=== PATIENT | male | born 1935 | race Hispanic/Latino ===

== ENCOUNTER 2016-06-15 10:06 | Day surgery (SDC) | payer SELFPAY ==
--- NOTE | 2016-06-13 12:13 | PCM.ANEPRE ---
Anesthesia Pre-Op Review Reason for Review: cardio hx, internal carotid stenosis, recent CP with BMS Anesthesia Recommendations: Proceed with Procedure Additional Comments 81 y/o male with bladder cancer scheduled for cysto, bladder biopsy. Patient has a h/o CAD s/p NSTEMI on 06/2015. Subsequently underwent BMS to RCA on . Saw home improvement contractor Dr. Mclain on 06/11/16 who cleared him for surgery, but recommended that he see a vascular surgeon to evaluation his left carotid stenosis. On 09/01/15 he had a carotid US which showed 70% stenosis to near occlusion of L internal carotid artery. I showed the results of the carotid US to Dr. Karen Ramirez who reported that he couldn't be sure until seeing the patient, but it was unlikely that he would recommend a carotid endarterectomy for the patient based on the US. The patient underwent GA for a cysto/TURBT on 09/02/15 (after his prior carotid US) without any apparent issues. The patient's Echo on 02/16 showed EF of 65-70%. Proceed with surgery as planned pending evaluation by DOS anesthesiologist. Chart Reviewed by: Audie Griffiths MD Jun 13, 2016 12:13
[~2016-06-15] VITALS: Ht 167.6 cm; Wt 81.8 kg
--- NOTE | 2016-06-15 08:34 | PCM.HPANE ---
Patient Data Surgeon Admitting Provider: Attending Provider:Lilliam Toscano MD Primary Care Physician:Traci Samuel PA-C Other Provider:Daija Perez Anesthesia Reason for Visit History Of Bladder Cancer Ht/WT & BMI Height (Feet): 5 Height (Inches): 6 Weight (Kilograms): 82.55 Body Mass Index 29.00 Allergies Coded Allergies: No Known Allergies (Verified Allergy, Unknown, 02/22/16) Past Anesthesia History Anesthesia History: Denies:: Abnormal Airway, Anesthesia Reactions, Difficult Intubation, Malignant Hyperthermia Diabetes History Hx Diabetes?: Yes (T2 DM) Type of Diabetes: Type II Glycemic Control: Oral Medication MRSA MRSA: No Medications Blood Thinner: Aspirin Hypertension Medication: Yes Home Meds Incl Beta [place]ilah: No Active Scripts Atorvastatin Calcium 10 Mg Getnth89 Mg PO HS #30 TABLET Ref 5 Prov:EMILIE DAVILA DO 03/12/16 Aspirin Chew 81 Mg Chew81 Mg PO DAILY 90 Days Prov:Ravinder Hernandez 03/07/16 Reported Medications Tramadol 50 Mg Jpctuf66 Mg PO Q4H PRN For Pain Ref 0 06/12/16 Metoprolol Tartrate 25 Mg Uqrgih52 Mg PO BID 30 Days Ref 0 06/12/16 Isosorbide MN ER 60 Mg Tab.er.24h60 Mg PO DAILY 06/12/16 Amlodipine 2.5 Mg Tablet2.5 Mg PO BID Ref 0 06/12/16 Phenazopyridine (Azo Urinary Pain Relief)97.5 Mg Tablet2 Each PO TID PRN urinary burning 02/22/16 Dextran 70/Hypromellose/Pf (Artificial Tears Drops)1 Each Droperette1 Drop BOTH_ EYES BID PRN For Eye Irritation 02/22/16 Metformin 500 Mg Nnxhcu676 Mg PO DAILY 02/22/16 Nitroglycerin SL (Nitrostat)0.4 Mg Tab.subl0.4 Mg SL Q5MIN PRN For Chest Pain 08/31/15 Discontinued Reported Medications diphenhydrAMINE HCl (Benadryl)25 Mg Fxsktiz95 Mg PO Q4 PRN For Itching 02/22/16 Metoprolol Tartrate 25 Mg Bjwpch59 Mg PO BID 02/22/16 Discontinued Scripts Oxycodone (Roxicodone)5 Mg Tablet5 Mg PO Q4H PRN For Pain #30 TABLET Ref 0 Prov:EMILIE DAVILA DO 03/12/16 Isosorbide MN ER 60 Mg Tab.er.96s973 Mg PO 0730 #60 Ref 4 Prov:DEBBI DAVILABrenda Moreno DO 03/12/16 Amlodipine 5 Mg Tablet5 Mg PO BID #60 TABLET Prov:MaryRavinder 03/07/16 Clopidogrel 75 Mg Oixkhu13 Mg PO DAILY #30 TABLET Prov:Ravinder Hernandez 03/07/[address] (Protonix)40 Mg Iecvzj10 Mg PO DAILY 30 Days Prov:KassiejocelynRavinder 03/07/16 History History of ENT Problems?: Yes HEENT History: Positive for:: Cataracts Dysphagia Sinus Problem (seasonal allergies) Denies:: Abnormal Airway Difficult Intubation Hx of Heart Problems?: Yes Cardiovascular History: Positive for:: Chest Pain (PCI 02/2016) Hypertension Valvular Heart Disease (echo 02/2016) Denies:: Cardiac Surgery (BMS to RCA- 2015) Congestive Heart Failure Heart Murmur Irregular Heartbeat Hx of Respiratory Problem?: Yes Respiratory History: Positive for:: Dyspnea Pneumonia ( admitted for 06/2015) Denies:: COPD Oxygen Administration Tuberculosis Use of C-PAP Machine Use of Inhalers / NEBS Hx Neurologic Problems?: Yes Neurological History: Positive for:: CVA Denies:: Alzheimer's Disease Headaches Multiple Sclerosis Parkinson's Disease Seizures Hx of GI Problems?: Yes Gastrointestinal History: Positive for:: Gastrointestinal Bleeding (hx of 2015) Heartburn Rectal Bleeding (hemorrhoids) Denies:: Diverticulitis Hx of Problems?: Yes Genitourinary History: Positive for:: Kidney Stones Urinary Tract Infection (E Coli UTI 10/2015) Other Pertinent History: bladder tumor current admission problem Male Hx: Positive for:: Prostate Problems (TURP x 2) Denies:: Scrotal Mass Testicular Surgery Skin History: Positive for:: History Skin Disorders? (pruritis) Denies:: Pressure Ulcers Hx Musculoskeletal Problems?: Yes Musculoskeletal History: Positive for:: Back Injury (chronic back pain) Hx of Psycho/Social Problems?: No Psycho Social History: Denies:: Anxiety Hx Depression Hx Surgeries?: Yes (appy, TURPx2, r.eyeball enucleation, kira) Hx Any Other Health Problems?: Yes Other History: Positive for:: Cancer (bladder ca) Hospitalization (06/2015 PNEUMONIA) Denies:: Endocrine Disease Thyroid Disease History Blood Transfusions: Denies:: Blood Transfuse Reaction Blood Transfusions Hx Diabetes: Yes (T2 DM) Hx Alcohol Use: Yes (Drinks 1 beer per month)Hx Substance Use: No Smoking Status: Former Smoker Have You Smoked inLast 12 mo: No Stop/Bang S-Snoring: Do You Snore Loudly: Yes T-Tired: feel tired, fatigued: No O-Obsered: Observed not breath: No P-Blood Pressure: treated: Yes B- Body Mass Index > 35 kg/m2: No A- Age over 50: Yes N- Neck Large Circumference: No G- Gender Male: Yes NIA Total Score: 4 NIA Risk Assessment: High Risk, =/>3 Yes NIA Category 4 OutPt Procedure: Yes Risk Assessment Category Category 1A: Patient has history of documented sleep apnea, and HAS NOT received any narcotic, sedative or anesthesia administration during this stay. Category 1B: Patient has history of documented sleep apnea, and HAS received any narcotic , sedative or anesthesia administration during this stay Category 2: Patient has SUSPECTED Obstructive Sleep Apnea, and HAS received any narcotic , sedative or anesthesia administration during this stay. Category 3: Patient has SUSPECTED Obstructive Sleep Apnea and HAS NOT received narcotic, sedative or anesthesia administration during this stay. Category 4: Outpatient in Procedural Areas with known sleep apnea or who screen positive for High Risk via the STOP/BANG questionnaire. Exam Exam General Appearance: Alert, Oriented X3, Cooperative, No Acute Distress HEENT/AIRWAY: MP 2 Lungs: Clear to Auscultation, Normal Air Movement Heart: Exam Unremarkable, Regular Rate/Rhythm, No Murmurs/Rubs/Gallops Plan Impression Patient chart reviewed, patient interviewed and anesthestic plan with risks, benefits, and alternatives discussed, and informed consent obtained. NPO Status: 02/23/16 ASA Physical Status: ASA3 Severe Disease (hx carotid stenosis-pt has not seen vascular surgeon, but wishes to proceed with understanding there is a slight increased of perioperative stroke) Anesthetic Plan: GA Bene/Risks/Altern/Consents: Yes (Discussion with patient and family present about increased risks of stroke and cardiac complications with specific reference to his NSQUIP calculation sheet. Patient consents and all questions answered. ) HP Complete Prior to Induction: Yes Earl Sevilla MD Jun 15, 2016 08:34
[~2016-06-15 10:06] MED LIST: AMLO2.5T PO; ASPI81TA3 PO; ATOR10TA66 PO; DEXT1DRO8 BOTH_EYES; ISOS60TA2 PO; Lactated Ringer's 1,000 ML IV SCH; Levofloxacin 500 mg/100 mL D5W IV ONE; METF500T4 PO; METO25TA6 PO; NITR0.4T SL; PHEN97.511 PO; TRAM50TA2 PO
[2016-06-15] MEDS ORDERED: Ondansetron 2 mg/mL 2 mL Inj ONE (10:07)
[2016-06-15] MEDS ORDERED: fentaNYL-PF 50 mCg/mL 2 mL Inj ONE (10:07)
[2016-06-15] MEDS ORDERED: Ketamine 10 mg/mL 20 mL Inj ONE (10:07)
[2016-06-15] MEDS ORDERED: Propofol 10,000 mCg/mL 20 mL Inj ONE (10:07)
[2016-06-15] MEDS: Lactated Ringer's 1,000 ML IV SCH ×2 (10:50→12:14)
[2016-06-15 10:51] VITALS: BP 140/72; PULSE 51; RESP 14; O2SAT 98
[2016-06-15] MEDS ORDERED: Phenylephrine 10,000 mCg/mL Inj IVPUSH PRN (12:30)
[2016-06-15] MEDS ORDERED: Lactated Ringer's 500 ML IV PRN (12:30)
[2016-06-15] MEDS ORDERED: Lactated Ringer's 1,000 ML IV SCH (12:30)
[2016-06-15] MEDS ORDERED: MetoCLOpramide 5 mg/mL 2 mL Inj IVPUSH PRN (12:30)
[2016-06-15] MEDS ORDERED: Dexamethasone 4 mg/mL Inj IVPUSH PRN (12:30)
[2016-06-15] MEDS ORDERED: EPHEDrine Sulfate 50 mg/mL Inj IVPUSH PRN (12:30)
[2016-06-15] MEDS ORDERED: Ondansetron 2 mg/mL 2 mL Inj IVPUSH PRN (12:30)
[2016-06-15] MEDS ORDERED: HYDROmorphone 1 mg/mL Inj IVPUSH PRN (12:30)
[2016-06-15] MEDS ORDERED: Belladonna Alk-Opium 60 mg Rectal Suppository RECTAL ONE (12:46)
[2016-06-15] MEDS ORDERED: Lidocaine 2% 5 mL Urojet Topical Jelly Syringe MUC_MEMBRM ONE (13:09)
[2016-06-15 13:15] VITALS: BP 126/64; PULSE 55; RESP 22; O2SAT 96
[2016-06-15] MEDS ORDERED: HYDROcodone-APAP 5-325 mg Tablet PO PRN (13:20)
[2016-06-15] MEDS ORDERED: Phenazopyridine 97.5 mg Tablet PO PRN (13:20)
[2016-06-15] MEDS ORDERED: Ondansetron 8 mg ODT Tablet PO PRN (13:20)
[2016-06-15] MEDS: fentaNYL-PF 50 mCg/mL 2 mL Inj IVPUSH PRN ×2 (13:25→13:44)
[2016-06-15 13:40] VITALS: BP 120/60; PULSE 51; RESP 14; O2SAT 97
[2016-06-15 13:45] VITALS: BP 123/53; PULSE 50; RESP 15; O2SAT 95
[2016-06-15 13:56] VITALS: BP 119/56; PULSE 52; RESP 16; O2SAT 96
--- NOTE | 2016-06-15 14:39 | PCM.ANEP2 ---
Post Anesthesia Evaluation ASA/CMS Post Anesthesia VS in Patient's Normal Range?: Yes Resp Stable; Airway Patent?: Yes CV Function & Hydration Stable: Yes Mental Status Recovered?: Yes Pain control Satisfactory?: Yes N/V Control Satisfactory?: Yes Earl Sevilla MD Jun 15, 2016 14:39
--- NOTE | 2016-06-15 14:39 | PCM.ANEP1 ---
Post Anesthesia Phase 1 PACU Phase 1 Assessment Vital Signs Vital Signs Date Time Temp Pulse Resp B/P Pulse Ox O2 Delivery O2 Flow Rate FiO2 06/15/16 13:56 36.6 52 16 119/56 96 Room Air 06/15/16 13:45 50 15 123/53 95 Nasal Cannula 2 06/15/16 13:40 51 14 120/60 97 Nasal Cannula 2 06/15/16 13:15 36.7 55 22 126/64 96 Simple Mask 8 06/15/16 10:51 36.1 51 14 140/72 98 Room Air Anesthetic Administered: GA Level of Alertness: Awake, talking HULL's with Equal Strength: Yes Pain: No Nausea or Vomiting: No Oxygen Delivery: Simple Mask Lungs: Clear to Auscultation, Normal Air Movement Dermatome Level: Full Sensation Earl Sevilla MD Jun 15, 2016 14:38
--- NOTE | 2016-06-16 06:22 | OP ---
[address] [address] OPERATIVE REPORT PATIENT: RANDY DRISCOLL : 1935 MR#: [id number] ADMIT: 06/15/2016 JOB ID: [id number] DATE OF SURGERY: 06/15/2016 PROCEDURE NAME: Transurethral fulguration of large area of bladder erythema and bladder biopsy; area treated much greater than 5 cm. SURGEON: Lilliam Toscano MD. ANESTHESIA: General. PREOPERATIVE DIAGNOSIS(ES): 1. History of bladder carcinoma in situ. 2. Multiple medical comorbidities precluding any entertaining of a cystectomy; managed with periodic bladder fulgurations, and biopsy thus far once again with progressive bladder erythema and suspected tumor recurrence; brought for bladder biopsy and fulguration. 3. The patient is anticoagulated, on anti-platelet therapy, to decrease stroke risk. POSTOPERATIVE DIAGNOSIS(ES): Same PROCEDURE IN DETAIL: After appropriate informed consent was obtained, the patient was brought to the operating room. He received IV antibiotics prior to onset of the procedure. SCDs were placed. Adequate general anesthesia was induced. He was carefully placed in dorsal lithotomy position. All pressure points carefully padded. Cleaned, prepped, and draped in the usual sterile fashion. Rigid scope was introduced into the patient's bladder, which was inspected and found to be once again, as before, heavily trabeculated. At least half of the bladder was involved with a fairly heavy erythema. The ureteral orifices were identified. At the right ureteral orifice we passed a wire up it to ensure this was indeed the UO in order to protect it with fulguration. We used then the cold cup to take several large good biopsies of suspicious areas. There was a moderate amount of bleeding, and this was difficult control with the Bugbee with the patient's anticoagulated state. Thus, we went ahead and changed over to the resectoscope set. Using a visual obturator, introduced this into the patient's meatus after dilation of the meatus. We then able to irrigate out the clot and used the rollerball to control the hematuria. We then went ahead and cauterized extensively taking great care to preserve both the left and, in particular, the right ureteral orifice. All the areas of more heavily erythematous mucosa we were able to reach. There were some trabeculated areas of the bladder that appeared to have some very low papillary changes to this. This was all cauterized to the best of our ability as well. At the termination of the procedure, we had treated an area greater than 5 cm, preserving the ureteral orifices, and hemostasis was excellent with the water off. We then withdrew the scope, gave the patient a B and O suppository, injected some lidocaine into the patient's bladder. He was awakened, taken in stable condition to the postanesthesia care unit. EDUARD
--- NOTE | 2016-06-18 12:23 | PATH ---
SURGICAL PATHOLOGY Attending Physician:Lilliam Toscano MD CASE STATUS: Signed Out PATIENT NAME: RANDY DRISCOLL PID: [id number] : 1935 DATE COLLECTED:06/15/2016 20:14 SPECIMEN: Bladder, Biopsy CLINICAL HISTORY: ERYTHEMATOUS BLADDER MUCOSA 1). BLADDER ERYTHEMA FINAL DIAGNOSIS: 1.URINARY BLADDER BIOPSY: FOCUS OF PAPILLARY UROTHELIAL CARCINOMA, HIGH GRADE, WITH ASSOCIATED CHRONIC INFLAMMATION AND ERYTHEMA. Negative for evidence of invasion of lamina propria. Muscularis propria present, but negative for tumor. Negative for evidence of associated flat urothelial carcinoma in situ. ICD10 code C67.9 NOTE: As part of a routine quality lead, Dr. Killian Black has also reviewed this case and agrees with the diagnosis. GROSS DESCRIPTION: The specimen is received in one formalin filled container labeled with the patient's name, sublabeled "bladder erythema" and consists of the specimen consists of 3 portions of tissue which aggregate to 0.6 x 0.6 x 0.4 CM. The specimen is entirely submitted in one cassette. 06/15/2016 [facility] MICRO DESCRIPTION: See diagnosis. ICD-9 CODES: CPT CODES: 1: 37685 Electronically Signed Out Bobby Malave MD [facility] Pathology [facility] [address], [place] [address] Technical component performed at [facility], [facility] [address], [place], [address]
== END 2016-06-15 23:59 | disposition home or self-care (01) ==
LOC: SAS 10:06
PROVIDERS: ATTEND Urology
DX: C67.9 Malignant neoplasm of bladder, unspecified (principal); E11.9 Type 2 diabetes mellitus without complications; I10 Essential (primary) hypertension; R12 Heartburn; R13.10 Dysphagia, unspecified; Z79.82 Long term (current) use of aspirin; Z79.899 Other long term (current) drug therapy; Z87.891 Personal history of nicotine dependence
CPT/HCPCS: 52240; J2405; J7120

== ENCOUNTER 2017-01-19 07:38 | Observation (INO) | payer MEDICAID ==
[~2017-01-19] VITALS: Ht 157.5 cm; Wt 83.7 kg
[2017-01-19] VITALS (11 sets, daily range): BP systolic 103–164; BP diastolic 47–82; PULSE 45–75; RESP 16–22; O2SAT 93–99
[~2017-01-19 07:38] MED LIST changes: -Lactated Ringer's 1,000 ML IV SCH; -Levofloxacin 500 mg/100 mL D5W IV ONE
[2017-01-19 08:51] LABS: BASOPHILS % (AUTO) 0.1 % (0-3); EOSINOPHILS % (AUTO) 6.2 % (0-5); Mean Corpuscular Hemoglobin 29.2 pg (27.0-35.0); Mean Corpuscular Volume 87.6 fL (81-100); NEUTROPHILS % (AUTO) 68.3 % (40-74); Platelet Count 250 bil/L (150-400)
[2017-01-19 09:17] LABS: TROPONIN T 0.018 ug/L (0.0-0.011)
--- NOTE | 2017-01-19 09:18 | ED.REPORT ---
HPI-Chest Pain 40 and Over Date of Service Jan 19, 2017 ED Provider: Jj Medellin MD Pt is a 81 year old male with a history of CT, HTN, chronic back pain, recurrent , high grade transitional cell bladder cancer, valvular heart disease, and stents, who presents to the ED complaining of right-sided back pain onset 04:00 this morning, located behind his shoulder blade. The pain woke the pt from sleep and has been gradually worsening since. He now rates the pain at a 9/10 but has not taken any medications to treat it. The pt complains of associated chest pain and nausea. Pt denies SOB, vomiting, fever, coughing, diaphoresis, or fever. The pain is not relieved or exacerbated by anything. Pt also denies recent injuries, trauma, or falls. The pt has experienced similar symptoms before but was not given a definitive diagnosis at that time. He also had a cardiac event five years ago, but does not remember the details. Nursing Notes Stated Complaint: CHEST PAIN/PAIN RT SHOULDER Chief Complaint: Back Pain or Injury Nursing Notes Reviewed: Yes (Gentis not reconciled) Allergies: Coded Allergies: No Known Allergies (Verified Allergy, Unknown, 01/19/17) Scheduled Amlodipine (Amlodipine) 2.5 Mg Tablet 2.5 MG PO BID Aspirin Chew (Aspirin Chew) 81 Mg Chew 81 MG PO DAILY Atorvastatin Calcium (Atorvastatin Calcium) 10 Mg Tablet 10 MG PO HS Clopidogrel (Clopidogrel) 75 Mg Tablet 75 MG PO DAILY Isosorbide MN ER (Isosorbide MN ER) 60 Mg Tab.er.24h 60 MG PO DAILY Metformin (Metformin) 500 Mg Tablet 500 MG PO DAILY Metoprolol Tartrate (Metoprolol Tartrate) 25 Mg Tablet 25 MG PO BID Scheduled PRN Dextran 70/Hypromellose/Pf (Artificial Tears Drops) 1 Each Droperette 1 DROP BOTH_EYES BID PRN PRN For Eye Irritation Nitroglycerin SL (Nitrostat) 0.4 Mg Tab.subl 0.4 MG SL Q5MIN PRN PRN For Chest Pain Phenazopyridine (Azo Urinary Pain Relief) 97.5 Mg Tablet 2 EACH PO TID PRN PRN urinary burning Tramadol (Tramadol) 50 Mg Tablet 50 MG PO Q4H PRN PRN For Pain General Time Seen by MD: 09:06 Chief Complaint Back pain Hx Obtained From: Patient, Skin Piler Arrived By: Walk-in Sudden in Onset?: Yes Onset Occurred: 5 - 8 hours ago Symptom Duration: Since onset Recent Healthcare: No recent doctor visit, No recent hospitalization Similar Sx Previous: Yes Risk Factors )( CAD Risk Stratification Diabetes mellitus Hyperlipidemia Hypertension Known CAD Risk factors reviewed )( TAD Risk Stratification HypertensionNo Risk factors reviewed )( PE Risk Stratification No , No Risk factors reviewed Past Medical History Past Medical History Notes: Urologist Dr. Toscano Past Medical History h/o E Coli ESBL UTI 10/2015 h/o Anemia secondary to upper GI bleed with gastric antral ulcer June 2015, attributed to NSAIDS CAD w/N STEMI in June 2015, h/o cardiac stents History of aortic valve insufficiency Diabetes Type II CVA Chronic kidney disease, Stage II Hypertension Bladder CA (recurrent, high grade transitional cell) -> chemoradiation planned Pruritus Chronic Back Pain History of carotid artery stenosis, with July 2016 ultrasound revealing 70% to near occlusion of the left internal carotid, 50-60% occlusion of the right internal carotid History of CVA Reports: COPD, Coronary artery disease, Hyperlipidemia, Hypertension Past Surgical History Enucleation of right eyeball Endoscopy June 2059 Cardiac Cath 2006 Artificial eye on right side Reports: Angioplasty, Appendectomy, Cholecystectomy, Prostatectomy (TURP x2) Smoking History Former Smoker Social History Skin Piler used for Sami Alcohol Use: Denies alcohol use Drug Use: Denies drug use Other Social History: Good social support, , Local resident Ambulatory Status Independent Review of Systems Constitutional: Denies: Fever Respiratory: Denies: Non-productive cough, Shortness of breath Cardiovascular: Reports: Chest pain GI: Reports: Nausea, Denies: Vomiting Musculoskeletal: Reports: Back pain, Extremity pain (Right shoudler blade ) Skin: Denies Diaphoresis Complete sys rev & neg: except as marked. Physical Exam Initial Vital Signs Vital Signs (First) Date Time Temp Pulse Resp B/P Pulse Ox O2 Delivery O2 Flow Rate FiO2 01/19/17 07:46 36.6 75 18 155/82 95 Room Air Initial VS: Reviewed, Vital signs normal General/Constitutional: Awake, Alert, No acute distress in obvious discomfort Respiratory / Chest: Atraumatic, Breath sounds NL, Breath sounds = bilat, No respiratory distress Cardiovascular: Regular rhythm Heart Rate / Rhythm: Positive: Bradycardia Heart Sounds / Murmur: Positive: Murmur present... (1/6) Abdomen: Atraumatic, Soft, Non-tender Neck: Atraumatic, Supple, Full range of motion Back: Atraumatic, Inspection NL, Full range of motion Lower Extremity / Pelvis / MS: Atraumatic, Inspection NL, Full range of motion Skin: Atraumatic, Color NL, No rash, Warm, Dry Neurologic: Oriented X3, Speech NL, No motor deficits, No sensory deficits Psychiatric: Affect NL, Mood NL Head / Eyes: Atraumatic, Normocephalic, PERRL, EOMI ENT: Atraumatic, Airway patent, Mucous membranes moist Upper Extremity / MS: Atraumatic, Full range of motion Interpretation & Diagnostics Lab Results Interpretation Result Diagram: 01/19/17 0805 01/19/17 0805 Test 01/19/17 08:05 01/19/17 09:00 White Blood Count 7.8th/mm3 (3.8-10.1) Red Blood Count 3.87mil/mm3 (4.40-5.80) Hemoglobin 11.3g/dL (13.8-17.2) Hematocrit 33.9% (41.0-50.0) Mean Corpuscular Volume 87.6fL (81-100) Mean Corpuscular Hemoglobin 29.2pg (27.0-35.0) Mean Corpuscular Hemoglobin Concent 33.3% (32.0-37.0) Red Cell Distribution Width 14.0% (12.3-15.4) Platelet Count 250bil/L (150-400) Neutrophils (%) (Auto) 68.3% (40-74) Lymphocytes (%) (Auto) 17.0% (14-46) Monocytes (%) (Auto) 8.0% (4-12) Eosinophils (%) (Auto) 6.2% (0-5) Basophils (%) (Auto) 0.1% (0-3) D-Dimer 1.29mg/L FEU (<0.50) Sodium Level 136mEq/L (134-144) Potassium Level 4.5mEq/L (3.5-5.2) Chloride Level 100mEq/L (97-108) Carbon Dioxide Level 22mmol/L (18-29) Blood Urea Nitrogen 18mg/dL (8-27) Creatinine 1.20mg/dL (0.76-1.27) Estimat Glomerular Filtration Rate 61mL/min (>59) Glucose Level 178mg/dL (60-99) Calcium Level 8.8mg/dL (8.5-10.1) Total Bilirubin 0.4mg/dL (0.0-1.2) Aspartate Amino Transf (AST/SGOT) 20U/L (0-50) Alanine Aminotransferase (ALT/SGPT) 13U/L (0-44) Alkaline Phosphatase 80U/L (25-160) Pro-B-Type Natriuretic Peptide 301.5pg/mL (0-486) Total Protein 7.3g/dL (6.4-8.4) Albumin 4.1g/dL (3.4-5.0) Urine Color Yellow (YELLOW) Urine Appearance Clear (CLEAR,HAZY) Urine pH 6.0 (5.0-8.0) Urine Specific [place] 1.011 (1.003-1.035) Urine Protein 30mg/dL (NEG,TRACE) Urine Glucose (UA) Negativemg/dL (NEGATIVE) Urine Ketones Negativemg/dL (NEGATIVE) Urine Occult Blood Trace (NEGATIVE) Urine Nitrite Negative (NEGATIVE) Urine Bilirubin Negative (NEGATIVE) Urine Urobilinogen Normalmg/dL (NORMAL) Urine Leukocyte Esterase Small (NEGATIVE) Urine RBC 3-10/hpf (0-2) Urine WBC 11-50/hpf (0-5) Urine Epithelial Cells Few/hpf (NONE-MOD) Urine Crystals None seen (NONE SEEN) Urine Bacteria None/hpf (NONE-FEW) Urine Hyaline Casts None/lpf (NONE) Urine Granular Casts None seen (NONE SEEN) Urine Waxy Casts None seen (NONE SEEN) Urine Red Blood Cell Casts None seen (NONE SEEN) Urine White Blood Cell Casts None seen (NONE SEEN) Urine Mucus None seen (None Seen) Urine Trichomonas None seen (NONE SEEN) Urine Yeast None (NONE SEEN) Urinalysis Comment None Urine Culture Reflexed Indicated Hold Urine Received (Received) Lab Results Interpretation: CBC normal CMP normal Troponin elevated marginally D-dimer elevated UA abnormal, no bacteria for multiple white cells-out of the patient has a bladder CA, deferring decision to cover with antibiotic CU admitting hospitalist ECG Interpretation ECG Interpretation: Sinus bradycardia rate 53 RBBB No acute change from previous dated 01/09/2017 Time: 08:06 Interpreted by: ED physician ECG Interpretation: Sinus bradycardia rate 47 RBBB unchanged from previous Time: 09:52 Interpreted by: ED physician X-Ray Chest Interpretation Chest Xray Interpretation: IMPRESSION: Mild pulmonary edema pattern with superimposed bibasilar atelectasis associated with reduced inspiration. Dictated by: Delmer Falcon M.D. on 01/19/2017 at 9:20 Approved by: Delmer Falcon M.D. on 01/19/2017 at 9:21 View: Portable, 1 view Interpretation / Wet Read by: Interpret - Radiologist CT Chest Interpretation IMPRESSION: No pulmonary embolus found. Multiple small gallstones are seen layering dependently within the gallbladder lumen but there is no sign of biliary obstruction or acute cholecystitis. These were previously present. Dictated by: Delmer Falcon M.D. on 01/19/2017 at 11:29 Approved by: Delmer Falcon M.D. on 01/19/2017 at 11:31 Study type: Chest CT w contrast Interpretation / Wet Read by: Interpret - Radiologist Re-Eval/Medical Decision Med Decision/Clinical Course This is an 81-year-old male with an extensive and complex cardiovascular history presents with a combination of back and chest discomfort. Scrubs chest tightness and pressure, radiates to the neck, but a little bit behind the shoulder blade as well. He cannot tell me if it matches what he has had with previous coronary syndromes. He has had no fever, cough, but he has had nausea and retching. 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 He is bradycardic, and appears uncomfortable and holding an emesis basin. His symptoms are not mechanical, and I cannot fully reproduce them but at times he has severe pain and winces, occasionally with movement. However again is not clearly reproducible. His lungs are clear, abdomen soft nontender - including in the right upper quadrant. His workup included serial EKGs, no acute interval change. Chest x-ray was unremarkable, and blood work was notable for an indeterminate elevated troponin. Additionally his d-dimer was elevated, so in the setting CT imaging was obtained but was negative for acute disease, redemonstration of known cholelithiasis was identified-further clinical features of cholecystitis evident. The patient received his aspirin, and some Dilaudid, but his blood pressure was only around 105 stated mushroom for nitroglycerin. However symptoms resolved with pain medication, although he requested additional hydrocodone and C1. At this point the patient with multiple major cardiovascular risk factors, history of extensive coronary and peripheral vascular disease, within episode of chest discomfort and nausea and an indeterminate troponin-his heart score is elevated and admission for serial markers is indicated. Source of Hx: Old records Time of Eval: 11:47 Patient Status: Condition improved Re-Evaluation/Progress Note: Pt rechecked, who is resting comfortably. Lab and radiology results are discussed, in addition to the diagnosis and need for admission. The pt understands and agrees with the plan. All questions are addressed at this time. Consultation : Referral / Consult Name: Kd Amaya MD Consulted With: Hospitalist Call Returned at: 12:09 Manager Pediatric: Agrees with eval, Agrees with plan, Accepts admit Note: Spoke with Dr. Amaya, hospitalist, regarding pt's case. Dr. Amaya agrees with the evaluation and agrees to admit the pt. Differential Diagnosis: Positive: Chest pain, acute, Negative: Dysrhythmia, Esophageal rupture, Gun shot wound chest, Peptic ulcer disease, Pneumomediastinum, Pneumonia, Pneumothorax, Pulmonary edema, Pulmonary embolism, Rib fracture, Stab wound chest Counseled Regarding: Diagnosis, Lab results, Need for admission Discharge & Departure Primary Impression: Chest pain Chest pain type: unspecified Qualified Code: R07.9 - Chest pain, unspecified Additional Impressions: Elevated troponin Abnormal urinalysis Bladder cancer Bladder location: unspecified site Qualified Code: C67.9 - Malignant neoplasm of bladder, unspecified Disposition: ADMITTED TO HOSPITAL Discharge Condition All VS Reviewed: Yes Condition: Improved Referrals: Traci Samuel PA-C (PCP) Scribe Attestation Portions of this note were transcribed by Sherry Mistry and Bart Barriga. I, Dr. Medellin personally performed the history, physical exam and medical decision -making; I reviewed and confirmed the accuracy of the information in the transcribed note. copies to: Traci Samuel PA-C, Matthew F MD Jan 19, 2017 09:18 Sherry Mistry Jan 19, 2017 11:15 BART BARRIGA Jan 19, 2017 11:40
[2017-01-19] MEDS ORDERED: HYDROmorphone 0.5 mg/0.5 mL iSecure Syringe IVPUSH PRN (09:20)
[2017-01-19] MEDS ORDERED: Ondansetron 2 mg/mL 2 mL Inj IVPUSH ONE (09:20)
--- NOTE | 2017-01-19 09:22 | DRSVH ---
PROCEDURE: X-RAY CHEST ONE VIEW, PORTABLE ([id number]) INDICATIONS: sob TECHNIQUE: One view of the chest was acquired. COMPARISON: [facility], CR, XR CHEST 1VW (PORTABLE), 03/09/2016, 20:08. [facility], CR, XR CHEST 2VW, 02/26/2016, 10:12. FINDINGS: Surgical changes and devices: None. Lungs and pleura: No pleural effusions or pneumothorax. Lungs are abnormal with reduced inspiratory volume and what appears to be a mild pulmonary edema pattern with superimposed basilar atelectasis. Mediastinum: Mediastinal contours appear normal. Heart size is normal. Bones and chest wall: No suspicious bony lesions. Overlying soft tissues appear unremarkable. IMPRESSION: Mild pulmonary edema pattern with superimposed bibasilar atelectasis associated with redu ollie inspiration. Dictated by: Delmer Falcon M.D. on 01/19/2017 at 9:20 Approved by: Delmer Falcon M.D. on 01/19/2017 at 9:21
--- NOTE | 2017-01-19 09:27 | ED.REPORT ---
HPI-Abd Pain F 2 and Over Date of Service Jan 19, 2017 ED Provider: Jj Medellin MD Pt is a 81 year old male with a history of VA, HTN, chronic back pain, valvular heart disease, and stents placed in [place], who presents to the ED complaining of right shoulder blade pain onset 4 this morning. He c/o of associated chest pain, side pain, and nausea. Pt denies SOB, vomiting, coughing, diaphoresis, or fever. He reports that nothing makes the pain better or worse. Pt has had no recent injuries, trauma, or falls. Nursing Notes Stated Complaint: CHEST PAIN/PAIN RT SHOULDER Chief Complaint: Back Pain or Injury Nursing Notes Reviewed: Yes Allergies: Coded Allergies: No Known Allergies (Verified Allergy, Unknown, 01/19/17) Scheduled Amlodipine (Amlodipine) 2.5 Mg Tablet 2.5 MG PO BID Aspirin Chew (Aspirin Chew) 81 Mg Chew 81 MG PO DAILY Atorvastatin Calcium (Atorvastatin Calcium) 10 Mg Tablet 10 MG PO HS Isosorbide MN ER (Isosorbide MN ER) 60 Mg Tab.er.24h 60 MG PO DAILY Metformin (Metformin) 500 Mg Tablet 500 MG PO DAILY Metoprolol Tartrate (Metoprolol Tartrate) 25 Mg Tablet 25 MG PO BID Scheduled PRN Dextran 70/Hypromellose/Pf (Artificial Tears Drops) 1 Each Droperette 1 DROP BOTH_EYES BID PRN PRN For Eye Irritation Nitroglycerin SL (Nitrostat) 0.4 Mg Tab.subl 0.4 MG SL Q5MIN PRN PRN For Chest Pain Phenazopyridine (Azo Urinary Pain Relief) 97.5 Mg Tablet 2 EACH PO TID PRN PRN urinary burning Tramadol (Tramadol) 50 Mg Tablet 50 MG PO Q4H PRN PRN For Pain General Time Seen by MD: 09:19 Chief Complaint Other (Right shoulder blade) Hx Obtained from: Patient, Medical Coordinator Pesticide Use Sudden in Onset?: Yes Onset Occurred: 5 - 8 hours ago Symptom Duration: Since onset Progression since onset: Gradually worsening Quality: Painful Recent Healthcare: No recent hospitalization, Recent doctor visit Similar Sx Previous: Yes Past Medical History Past Medical History Notes: Urologist Dr. Toscano Seen in ED 01/2016 for suspected UTI (culture negative) ED 2 in April 2015 for low back pain ADmit 06/2015 for SOB, Admit for GI bleed with large gastric antral ulcer secondary to NSAIDs Past Medical History Skin pruritis Bladder ca Seasonal allergies Valvular heart disease HTN Hemmorhoids Chronic back pain Past Surgical History TURPx2 Simin Right eye unucleation Reports: Appendectomy Smoking History Former Smoker Ambulatory Status Ambulatory Status: Independent Review of Systems Review of Systems Note: Side pain Constitutional: Denies: Fever Respiratory: Denies: Non-productive cough Cardiovascular: Reports: Chest pain GI: Reports: Nausea, Denies: Vomiting Musculoskeletal: Reports: Extremity pain (Right shoulder blade ) Complete sys rev & neg: except as marked. Physical Exam Initial Vital Signs Vital Signs (First) Date Time Temp Pulse Resp B/P Pulse Ox O2 Delivery O2 Flow Rate FiO2 01/19/17 07:46 36.6 75 18 155/82 95 Room Air Interpretation & Diagnostics Lab Results Interpretation Result Diagram: 01/19/17 0805 01/19/17 0805 Test 01/19/17 08:05 White Blood Count 7.8th/mm3 (3.8-10.1) Red Blood Count 3.87mil/mm3 (4.40-5.80) Hemoglobin 11.3g/dL (13.8-17.2) Hematocrit 33.9% (41.0-50.0) Mean Corpuscular Volume 87.6fL (81-100) Mean Corpuscular Hemoglobin 29.2pg (27.0-35.0) Mean Corpuscular Hemoglobin Concent 33.3% (32.0-37.0) Red Cell Distribution Width 14.0% (12.3-15.4) Platelet Count 250bil/L (150-400) Neutrophils (%) (Auto) 68.3% (40-74) Lymphocytes (%) (Auto) 17.0% (14-46) Monocytes (%) (Auto) 8.0% (4-12) Eosinophils (%) (Auto) 6.2% (0-5) Basophils (%) (Auto) 0.1% (0-3) D-Dimer 1.29mg/L FEU (<0.50) Sodium Level 136mEq/L (134-144) Potassium Level 4.5mEq/L (3.5-5.2) Chloride Level 100mEq/L (97-108) Carbon Dioxide Level 22mmol/L (18-29) Blood Urea Nitrogen 18mg/dL (8-27) Creatinine 1.20mg/dL (0.76-1.27) Estimat Glomerular Filtration Rate 61mL/min (>59) Glucose Level 178mg/dL (60-99) Calcium Level 8.8mg/dL (8.5-10.1) Total Bilirubin 0.4mg/dL (0.0-1.2) Aspartate Amino Transf (AST/SGOT) 20U/L (0-50) Alanine Aminotransferase (ALT/SGPT) 13U/L (0-44) Alkaline Phosphatase 80U/L (25-160) Troponin T 0.018ug/L (0.0-0.011) Pro-B-Type Natriuretic Peptide 301.5pg/mL (0-486) Total Protein 7.3g/dL (6.4-8.4) Albumin 4.1g/dL (3.4-5.0) Discharge & Departure Referrals: Traci Samuel PA-C (PCP) Sherry Mistry Jan 19, 2017 09:27 Jj Medellin MD Jan 19, 2017 10:32
[2017-01-19] MEDS ORDERED: Nitroglycerin 2% 1 Gm Ointment TOPICAL SCH (09:40)
[2017-01-19] MEDS ORDERED: CLOP75TA28 PO (10:33)
[2017-01-19] MEDS ORDERED: HYDROcodone-APAP 5-325 mg Tablet PO ONE ×2 (10:45)
--- NOTE | 2017-01-19 11:33 | DRSVH ---
PROCEDURE: CT ANGIO CHEST PULMONARY EMBOLISM ([id number]) INDICATIONS: R Chest pain, + dimer TECHNIQUE: After the administration of intravenous contrast, 2 mm thick sections acquired from the pulmonary api caitlyn to the posterior costophrenic angles. 3-dimensional maximum intensity projection (MIP) coronal a nd sagittal reformats were then acquired through the thorax. For radiation dose reduction, the follo wing was used: automated exposure control, adjustment of mA and/or kV according to patient size. COMPARISON: [facility], CT, CT ANGIO CHEST PE, 04/26/2015, 21:57. FINDINGS: Image quality: Excellent. Pulmonary arteries: Pulmonary arteries are normal in size, and demonstrate no intraluminal filling d efects to suggest central pulmonary embolism. Lungs and pleura: Lungs are clear except for mild posterior atelectasis. No pleural effusions or pn eumothorax. Central and peripheral airways are patent. Mediastinum: Heart size is normal, without pericardial effusion. No mediastinal or hilar adenopathy . Thoracic aorta is normal in caliber and enhancement. Esophagus is normal in caliber, without hiat al hernia. Bones and chest wall: No suspicious bony lesions. Ribs and thoracic spine appear intact throughout. Thyroid gland appears normal where well visualized. No axillary or supraclavicular adenopathy. Abdomen: Visualized upper abdominal solid organs appear normal in the early arterial phase of enhanc ement except at the gallbladder are multiple layering small calcified gallstones can be seen a size t hat easily contrast into the cystic duct were mild ducts distally.. IMPRESSION: No pulmonary embolus found. Multiple small gallstones are seen layering dependently with in the gallbladder lumen but there is no sign of biliary obstruction or acute cholecystitis. These w ere previously present. Dictated by: Delmer Falcon M.D. on 01/19/2017 at 11:29 Approved by: Delmer Falcon M.D. on 01/19/2017 at 11:31
[2017-01-19 12:04] LABS: APPEARANCE,URINE CLEAR (CLEAR,HAZY); COLOR,URINE YELLOW (YELLOW); OCCULT BLOOD,URINE TRACE (NEGATIVE); UROBILINOGEN,URINE NORMAL (NORMAL)
[2017-01-19] MEDS ORDERED: Ondansetron 2 mg/mL 2 mL Inj IVPUSH PRN ×2 (13:00→13:05)
[2017-01-19] MEDS ORDERED: Alum-Mag Hydrox-Simeth 30 mL Suspension PO PRN ×2 (13:00→13:05)
[2017-01-19] MEDS ORDERED: Polyethylene Glycol (PEG) 17 Gm Powder PO PRN (13:05)
--- NOTE | 2017-01-19 13:30 | NUR ---
Admit Patient arrived to unit via gurney and ambulated independently to bathroom then into bed. Pt A&Ox3, VSS. SpO2 high 90s on RA. C/o 6/10 chest pain unrelieved by nitro. Macedonian speaking only, in room fluent and translated for admit process. Patient orientated to call light and instructed use call light for help getting up. Patient resting quietly with eyes closed, NPO pending cardiology consult.
[2017-01-19] MEDS ORDERED: Glucose 40% Oral Gel 15 Gm Tube PO PRN (19:45)
--- NOTE | 2017-01-19 19:46 | PCM.HPMED ---
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 The pain woke the pt from sleep and gradually worsened. In the emergency department He rated the pain at a 9/10 associated with chest pain and nausea. Pt denies SOB, vomiting, fever, coughing, diaphoresis, or fever. The pain is exacerbated exacerbated with left rotation and palpation of the area. Pt denies recent injuries, trauma, or falls. The pt has experienced similar symptoms before but was not given a definitive diagnosis at that time. His workup included serial EKGs, no acute interval change. Chest x-ray was unremarkable, and blood work was notable for an indeterminate elevated troponin. Additionally his d-dimer was elevated, so in the setting CT imaging was obtained but was negative for acute disease, redemonstration of known cholelithiasis was identified-further clinical features of cholecystitis evident. The patient received aspirin, Dilaudid, nitroglycerin paste. Symptoms resolved with pain medication, although he requested additional hydrocodone. Due to the patient's extensive coronary history and peripheral vascular disease, in combination with his complaints of chest discomfort associated with nausea, indeterminate troponin levels, he should be admitted to the hospital for ACS rule out. Review of Systems: ROS negative except as noted in history of present illness Allergies Coded Allergies: No Known Allergies (Verified Allergy, Unknown, 01/19/17) Home Medications Amlodipine 2.5 mg twice a day Aspirin 81 mg daily Atorvastatin 10 mg daily at bedtime Clopidogrel 75 mg daily Isosorbide mononitrate 50 mg daily Metformin 500 mg daily Metoprolol tartrate 25 mg twice a day Nitroglycerin 0.4 mg every 5 minutes when necessary Tramadol 50 mg every 4 hours when necessary PMH h/o E Coli ESBL UTI 10/2015 h/o Anemia secondary to upper GI bleed with gastric antral ulcer June 2015, attributed to NSAIDS CAD w/N STEMI in June 2015, h/o cardiac stents History of aortic valve insufficiency Diabetes Type II CVA Chronic kidney disease, Stage II Hypertension Bladder CA (recurrent, high grade transitional cell) -> chemoradiation planned Pruritus Chronic Back Pain History of carotid artery stenosis, with July 2016 ultrasound revealing 70% to near occlusion of the left internal carotid, 50-60% occlusion of the right internal carotid History of CVA Reports: COPD, Coronary artery disease, Hyperlipidemia, Hypertension Surgical History Enucleation of right eyeball Endoscopy June 2059 Cardiac Cath 2005 Artificial eye on right side Reports: Angioplasty, Appendectomy, Cholecystectomy, Prostatectomy (TURP x2) Social History Hx Alcohol Use: Yes (Drinks 1 beer per month) Hx Substance Use: No Hx Tobacco Use: Yes Smoking Status: Former Smoker Exam Vital Signs Vital Sign - Last Date Time Temp Pulse Resp B/P Pulse Ox O2 Delivery O2 Flow Rate FiO2 01/19/17 17:20 36.6 56 22 164/72 98 Room Air Exam General: No acute distress, well-developed, well-nourished Head: Normocephalic, atraumatic. External ears without defect. Eyes: Pupils equal, round, and reactive to light and accommodation. Anicteric sclerae, moist conjunctivae. Neck: Normal range of motion, no lymphadenopathy noted MSK: Increased pain with palpation of the right upper spine. Cardiovascular: Regular rate and rhythm with no murmurs, rubs, or gallops appreciated Pulmonary: Clear to auscultation bilaterally with no crackles, wheezes, or rhonchi. Normal respiratory effort with no use of accessory muscles. Abdomen: Bowel tones present. Soft, nontender, nondistended. Extremities: No clubbing, cyanosis, edema Skin: Normal temperature, turgor, and texture; no rash, ulcers, or subcutaneous nodules appreciated. Neurological: Cranial nerves grossly intact. Reflexes, coordination, and sensory function within normal limits. Normal muscle strength, tone, and bulk. Psychiatric: Normal mood and affect. Alert and oriented to person, place, and time Lab and Diagnostics Result Diagram: 01/19/1780401/19/17804 X-Rays, CTs and MRIs X-RAY CHEST ONE VIEW, PORTABLE IMPRESSION: Mild pulmonary edema pattern with superimposed bibasilar atelectasis associated with reduced inspiration. Dictated by: Delmer Falcon M.D. on 01/19/2017 at 9:20 Approved by: Delmer Falcon M.D. on 01/19/2017 at 9:21 CT ANGIO CHEST PULMONARY EMBOLISM IMPRESSION: No pulmonary embolus found. Multiple small gallstones are seen layering dependently within the gallbladder lumen but there is no sign of biliary obstruction or acute cholecystitis. These were previously present. Dictated by: Delmer Falcon M.D. on 01/19/2017 at 11:29 Approved by: Delmer Falcon M.D. 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 Due to the patient's chronic history of heart disease this could represent his baseline. Due to the patient's pain being reproducible in conjunction with negative EKGs this likely represents a musculoskeletal injury however given his extensive history of cardiac disease, close monitoring is certainly warranted. - D-dimer elevated, CTA negative - Chest x-ray negative - Continue to monitor serial troponins every 6 - Last echo 02/23/2016, repeat echo ordered - Initially given Aspirin and Dilaudid for pain - Continue home aspirin 81 mg - Continue home tramadol for pain control - Continue home amlodipine - Continue home isosorbide mononitrate - Continue home Plavix - Nitro paste, with nitroglycerin PRN, although this does not appear to alleviate the patient's symptoms. - Cardiology consulted and has agreed to see the patient, recommendations appreciated Type II diabetes -Hemoglobin A1c pending -Moderate dose correctional insulin -Hold metformin High-grade bladder cancer, active - UA reflexed urine culture possibly due to bladder cancer. - UA shows: Chronic back pain, present remission, active -Continue home tramadol Hyperlipidemia -Continue home atorvastatin Hypertension - Continue home isosorbide mononitrate - Continue home amlodipine COPD, present on admission, stable - No associated shortness of breath - Consider nebs if necessary, however the patient does not appear to be in respiratory distress at this time. Chronic kidney disease, stable - BUN and creatinine within normal limits - Continue to monitor Disposition: Patient admitted under inpatient status with expected length of stay > 2 midnights for severity of present symptoms, complexities of treatment plan and risk for adverse event VTE Prophylaxis: Sub-Q Heparin (Unfractionated) Resuscitation Status: CPR: Attempt Resuscitation Attending Statement The patient was seen and examined together with Dr. James on 01/19/2017 and I agree with the history, exam and plan as outlined in the note above. . copies to: Traci Samuel PA-C, Adam J DO Jan 19, 2017 19:46 Kd Amaya MD Jan 20, 2017 07:42
[2017-01-19] MEDS: Heparin 5,000 Unit/mL Inj SUBQ SCH (21:27)
[2017-01-19] MEDS: Insulin LISPRO 300 Unit/3 mL Inj SUBQ SCH (22:00)
[2017-01-20] VITALS (9 sets, daily range): BP systolic 127–146; BP diastolic 57–74; PULSE 53–78; RESP 16–24; O2SAT 93–97
[2017-01-20 03:23] LABS: BASOPHILS % (AUTO) 0.1 % (0-3); EOSINOPHILS % (AUTO) 5.2 % (0-5); MONOCYTES % (AUTO) 10.1 % (4-12); Mean Corpuscular Hemoglobin 29.7 pg (27.0-35.0); Mean Corpuscular Volume 88.9 fL (81-100); NEUTROPHILS % (AUTO) 66.9 % (40-74); Platelet Count 225 bil/L (150-400)
[2017-01-20 03:56] LABS: TROPONIN T 0.019 ug/L (0.0-0.011)
[2017-01-20 04:07] LABS: Phosphorus 3.5 mg/dL (2.5-4.9)
[2017-01-20] MEDS: Heparin 5,000 Unit/mL Inj SUBQ SCH ×3 (04:58→20:19)
--- NOTE | 2017-01-20 06:37 | NUR ---
Pain/Tele Patient denies chest pain but reports ongoing right shoulder pain. Describes the pain as being "only a little bit." Tramadol given with some improvement. Tele: sinus/sinus brigette with rates in the 50s and 60s with an IVCD.
[2017-01-20] MEDS: Insulin LISPRO 300 Unit/3 mL Inj SUBQ SCH ×4 (07:42→22:00)
[2017-01-20] MEDS ORDERED: Isosorbide Mononitrate 60 mg ER24 Tablet PO SCH (08:30)
[2017-01-20] MEDS: Isosorbide Mononitrate 60 mg ER24 Tablet PO SCH (11:15)
--- NOTE | 2017-01-20 11:58 | NUR ---
Stress test Stress test was rescheduled. Pt. will have pharmacologic stress test tomorrow 01/21/17 at 1045. iPad industrial relations manager was used to explain pre-test expectation (no caffeine, NPO after midnight, etc.). Family and pt. verbalized understanding. Questions and concerns were addressed.
--- NOTE | 2017-01-20 12:27 | DRSVH ---
[facility] [address] [place] [address] Echocardiogram Report Name: RANDY DRISCOLL Study Date: 01/20/2017 Height: 62 in Hospital Exam Location: [facility] Weight: 183 lb Gender: Male BSA: 1.8 m2 : 1935 Age: 81 yrs BP: 138/57 mmHg Reason For Study: Chest pain Ordering Physician: Performed By: Lisa Carranza Interpretation Summary Left ventricular systolic function is normal without focal wall motion abnormalities with the ejection fraction visually estimated to be 65-70%. Left ventricular wall thickness is borderline increased with diastolic parameters suggesting a relaxation abnormality of the left ventricle, consistent with normal filling pressures. There has been no significant change since the previous study. The right ventricle grossly appears normal in size with probable normal systolic function and grossly appears unchanged compared to the previous study. Pulmonary artery pressures cannot be estimated because of the lack of a measurable TR jet velocity but the IVC suggests a low right atrial pressure of 3 mm Hg. The left atrium is mildly dilated and is unchanged in size. Right atrial size is normal but has inreased slightly compared to the previous study. There is mild mitral regurgitation that is unchanged compared to the previous study. The aortic valve is not well visualized but appears to be moderately calcified with probable moderate aortic stenosis, likely unchanged compared to the previous study. The peak aortic velocity is 2.9 m/sec with a mean gradient of 15 mmHg, both similar to the previous study. There is mild to moderate aortic regurgitation that is also unchanged compared to the previous study. There is no other significant valvular heart disease. Procedure: A two-dimensional transthoracic echocardiogram with color flow and Doppler was performed. The study quality was technically difficult. A contrast injection of Definity was performed to improve assessment of LV function. Comparison is made with the echocardiogram of 02/23/2016. The patient was in normal sinus rhythm during the exam. Left Ventricle: The left ventricle is normal in size. Left ventricular wall thickness is borderline increased. The LVOT diameter is 2.2 cm. The LVOT velocity is 1.2 m/s. Left ventricular systolic function is normal without focal wall motion abnormalities. The ejection fraction is estimated to be 65- 70%. Assessment of diastolic parameters indicates a relaxation abnormality of the left ventricle, consistent with normal filling pressures. There has been no significant change since the previous study. Right Ventricle: The right ventricle grossly appears normal in size with probable normal systolic function. This is unchanged compared to the previous study. Atria: The left atrium is mildly dilated. Right atrial size is normal. This is inreased slightly compared to the previous study. There is no Doppler evidence for an interatrial shunt. Mitral Valve: The mitral valve is grossly normal. The mitral valve leaflets are slightly calcified. There is mild mitral regurgitation. This is unchanged compared to the previous study. Aortic Valve: The aortic valve is not well visualized. The aortic valve is moderately calcified. Leaflet mobility is moderately reduced. There is moderate aortic stenosis. This is likely unchanged compared to the previous study. The peak aortic velocity is 2.9 m/sec. The aortic valve mean gradient is 15 mmHg. The calculated aortic valve area is 1.8 cm2. There is mild to moderate aortic regurgitation. This is unchanged compared to the previous study. Tricuspid Valve: The tricuspid valve leaflets are thin and pliable. No tricuspid regurgitation. Pulmonary artery pressures cannot be estimated because of the lack of a measurable TR jet velocity. Pulmonic Valve: The pulmonic valve is not well visualized. There is no other significant valvular heart disease. Great Vessels: The aortic root is normal size. The ascending aorta could not be visualized. The IVC is of normal diameter and collapses greater than 50% with a sniff. This suggests a low right atrial pressure of 3 mm Hg. Pericardium/ Pleura There is no pericardial effusion. MMode/2D Measurements & Calculations LVIDd: 4.8 cm RA long axis LVOT diam LVIDs: 3.0 cm LA A2 area: 19.9 cm FS: 37.9 % LA A4 area: 21.2 cm RA area Ao root diam EPSS: 0.12 cm LA length (vol): 5.4 cm IVSd: 1.1 cm LA vol: 65.7 ml : 12.7 cm Aortic Jxn LVPWd: 1.0 cm LA vol index RA vol: 25.6 ml : 2.7 cm RA : 13.9 mm2 IVC diam: 1.6 cm LV alicea. diameter/BSA LV sys. diameter/BSA RVD1 (basal) TAPSE: 3.3 cm (cm/m^2): 2.6 (cm/m^2): 1.6 Doppler Measurements & Calculations Ao V2 max MV E max leonardo MV E/A: 0.67 PA V2 max : 291.9 cm/sec : 75.9 cm/sec Med Peak E' Leonardo : 115.2 cm/sec Ao max PG MV A max leonardo PA mean PG : 34.1 mmHg : 113.7 cm/sec E/E' med: 14.7 Ao mean PG MV P1/2t: 108.5 msec Lat Peak E' Leonardo PA Accel Time : 15.2 mmHg : 0.08 sec LVOT Max Leonardo E/E' lat: 10.8 : 116.3 cm/sec E/e' average PEPPER(I,D): 1.8 cm sev ratio: 0.49 AI P1/2t : 488.9 msec AI dec slope : 227.9 cm/s2c MV dec time MV P1/2t max leonardo Ao V2 mean LV V1 max PG : 0.37 sec : 179.9 cm/sec MVA(P1/2t): 2.0 cm2 Ao V2 VTI: 57.5 cm LV V1 VTI PEPPER(V,D): 1.5 cm2 : 28.1 cm PA V2 mean PEPPER indexed to BSA : 80.8 cm/sec (cm^2/m^2): 1.0 Reading Physician:12:26 PM
--- NOTE | 2017-01-20 16:17 | NUR ---
R. back pain Pt. reported persistent R. lateral back pain. Pain was reproducible and activity related. PRN Tylenol 650 mg PO was given with good result, pain reduced from 5 to 2/10.
--- NOTE | 2017-01-20 16:37 | PCM.PNMED ---
Subjective Date of Service Jan 20, 2017 Subjective Today Mr. Ge continues to complain of his right flank and back pain, which is responsive to Tylenol. He otherwise denies chest pain or SOB. He was unable to undergo his stress test today because he mistakenly ate breakfast this morning. No significant overnight events. Comprehensive ROS negative except as listed above. Exam Vital Signs Vital Sign - Last Date Time Temp Pulse Resp B/P Pulse Ox O2 Delivery O2 Flow Rate FiO2 01/20/17 12:36 36.6 55 24 144/74 93 Room Air Intake and Output 01/19/17 01/19/17 01/20/17 Cumulative From/Thru 15:00 23:00 07:00 01/19/17 07:46 - 01/20/17 05:08 Intake Total 400 ml 300 ml 700 ml Output Total 400 ml 400 ml Balance 400 ml -100 ml 300 ml Intake Oral 400 ml 300 ml 700 ml Output Urine Total 400 ml 400 ml # Voids 2 1 3 # Bowel Movements 0 0 Exam Gen: A/O x3 pleasant elderly gentleman in NAD Neck: Supple, non tender, no JVD HEENT: PERRL, EOMI, no scleral icterus CV: RRR, no murmurs rubs or gallops Resp: Lungs CTA BL, no wheezing rales or rhonchi Abd: Soft, no rebound masses or guarding, slight tenderness to palpation Extr: Mild BL LE pitting edema, no cyanosis or clubbing Neuro: CN 2-12 grossly intact, no focal neurologic deficit Psych: Pleasant and appropriate mood and affect. IVs and Medications Medications Reviewed: Medications were reviewed in detail Lab and Diagnostics Item Value Date Time Red Blood Count 3.60 mil/mm3 L 01/20/17 025 Mean Corpuscular Volume 88.9 fL 01/20/17249 Mean Corpuscular Hemoglobin 29.7 pg 01/20/17 025 Mean Corpuscular Hemoglobin Concent 33.4 % 01/20/17249 Red Cell Distribution Width 14.2 % 01/20/17 025 Neutrophils (%) (Auto) 66.9 % 01/20/17 025 Lymphocytes (%) (Auto) 17.6 % 01/20/17 025 Monocytes (%) (Auto) 10.1 % 01/20/17 025 Eosinophils (%) (Auto) 5.2 % H 01/20/17249 Basophils (%) (Auto) 0.1 % 01/20/17249 Estimat Glomerular Filtration Rate 54 mL/min 01/20/17249 Calcium Level 8.5 mg/dL 01/20/17249 Phosphorus Level 3.5 mg/dL 01/20/17249 Magnesium Level 2.0 mg/dL 01/20/17249 Total Bilirubin 0.5 mg/dL 01/20/17249 Aspartate Amino Transf (AST/SGOT) 17 U/L 01/20/17249 Alanine Aminotransferase (ALT/SGPT) 11 U/L 01/20/17249 Alkaline Phosphatase 68 U/L 01/20/17249 Troponin T 0.019 ug/L H 01/20/17249 Total Protein 7.2 g/dL 01/20/17249 Albumin 3.8 g/dL 01/20/17249 Triglycerides Level 124 mg/dL 01/20/17249 Cholesterol Level 114 mg/dL 01/20/17249 LDL Cholesterol, Calculated 62.200 mg/dL 01/20/17249 VLDL Cholesterol 24.800 mg/dL 01/20/17249 HDL Cholesterol 27 mg/dL 01/20/17249 Cholesterol/HDL Ratio 4.22 01/20/17249 Thyroid Stimulating Hormone (TSH) 3.140 uIU/mL 01/20/17249 Result Diagram: 01/20/1724901/20/17249 Microbiology Urine culture, no growth to date X-Rays, CTs and MRIs X-RAY CHEST ONE VIEW, PORTABLE IMPRESSION: Mild pulmonary edema pattern with superimposed bibasilar atelectasis associated with reduced inspiration. Dictated by: Delmer Falcon M.D. on 01/19/2017 at 9:20 Approved by: Delmer Falcon M.D. on 01/19/2017 at 9:21 CT ANGIO CHEST PULMONARY EMBOLISM IMPRESSION: No pulmonary embolus found. Multiple small gallstones are seen layering dependently within the gallbladder lumen but there is no sign of biliary obstruction or acute cholecystitis. These were previously present. Dictated by: Delmer Falcon M.D. on 01/19/2017 at 11:29 Approved by: Delmer Falcon M.D. on 01/19/2017 at 11:31 12-lead ECG 3 EKG unchanged showing Sinus bradycardia Increased [place] interval (221) Right bundle branch block Cardiac Echo Impressions Interpretation Summary Left ventricular systolic function is normal without focal wall motion abnormalities with the ejection fraction visually estimated to be 65-70%. Left ventricular wall thickness is borderline increased with diastolic parameters suggesting a relaxation abnormality of the left ventricle, consistent with normal filling pressures. There has been no significant change since the previous study. The right ventricle grossly appears normal in size with probable normal systolic function and grossly appears unchanged compared to the previous study. Pulmonary artery pressures cannot be estimated because of the lack of a measurable TR jet velocity but the IVC suggests a low right atrial pressure of 3 mm Hg. The left atrium is mildly dilated and is unchanged in size. Right atrial size is normal but has inreased slightly compared to the previous study. There is mild mitral regurgitation that is unchanged compared to the previous study. The aortic valve is not well visualized but appears to be moderately calcified with probable moderate aortic stenosis, likely unchanged compared to the previous study. The peak aortic velocity is 2.9 m/sec with a mean gradient of 15 mmHg, both similar to the previous study. There is mild to moderate aortic regurgitation that is also unchanged compared to the previous study. There is no other significant valvular heart disease. Reading Physician:12:26 PM . 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 Elevated troponin of undetermined significance, present on admission, active Moderately elevated troponins on admission. Due to the patient's chronic history of heart disease this could represent his baseline. Due to the patient's pain being reproducible in conjunction with negative EKGs this likely represents a musculoskeletal injury however given his extensive history of cardiac disease, close monitoring is certainly warranted. - D-dimer elevated, CTA negative - Chest x-ray negative - Troponins waxing waning with minimal elevation - Last echo 02/23/2016, Repeat ECHO shows EF 60-70 with borderline diastolic dysfunction - Initially given Aspirin and Dilaudid for pain - Continue home aspirin 81 mg - Continue home tramadol for pain control - Continue home amlodipine - Continue home isosorbide mononitrate - Continue home Plavix - Nitro paste, with nitroglycerin PRN, although this does not appear to alleviate the patient's symptoms. - Patient was unable to complete stress test as he mistakenly ate breakfast, will conduct stress testing tomorrow Type II diabetes -Hemoglobin A1c pending -Moderate dose correctional insulin -Hold metformin High-grade bladder cancer, active - UA reflexed urine culture possibly due to bladder cancer. Chronic back pain, present remission, active -Continue home tramadol -Responsive to Tylenol Hyperlipidemia -Continue home atorvastatin Hypertension - Continue home isosorbide mononitrate - Continue home amlodipine COPD, present on admission, stable - No associated shortness of breath - Consider nebs if necessary, however the patient does not appear to be in respiratory distress at this time. Chronic kidney disease, stable - BUN and creatinine within normal limits - Continue to monitor Disposition: Patient will undergo stress test tomorrow, and will hopefully DC afterwards pending the results. Pain Evaluation: Adequate Pain Control VTE Prophylaxis: Sub-Q Heparin (Unfractionated) Resuscitation Status: CPR: Attempt Resuscitation Attending Statement The patient was seen and examined together with Dr. Watson on 01/20/2017 and I agree with the history, exam and plan as outlined in the note above. . Robbie Watson DO Jan 20, 2017 16:37 Kd Amaya MD Jan 21, 2017 09:11
[2017-01-21 03:21] LABS: BASOPHILS % (AUTO) 0.2 % (0-3); EOSINOPHILS % (AUTO) 7.7 % (0-5); MONOCYTES % (AUTO) 9.6 % (4-12); Mean Corpuscular Volume 87.3 fL (81-100); NEUTROPHILS % (AUTO) 61.6 % (40-74); Platelet Count 234 bil/L (150-400)
[2017-01-21 03:46] LABS: Magnesium 2.2 mg/dL (1.6-2.6); Phosphorus 3.6 mg/dL (2.5-4.9)
[2017-01-21 03:47] VITALS: BP 163/66; PULSE 61; RESP 16; O2SAT 95
[2017-01-21] MEDS: Heparin 5,000 Unit/mL Inj SUBQ SCH ×2 (05:57→12:00)
--- NOTE | 2017-01-21 06:12 | NUR ---
Shoulder Pain/NPO Patient reporting right shoulder and upper back pain. PRN tramadol given with improvement in symptoms and patient able to sleep. Patient NPO after midnight pending stress test. Reminders to both patient and family that he must not eat or drink anything prior to his stress test.
[2017-01-21] MEDS: Isosorbide Mononitrate 60 mg ER24 Tablet PO SCH (07:49)
[2017-01-21] MEDS: Insulin LISPRO 300 Unit/3 mL Inj SUBQ SCH ×2 (08:00→12:00)
[2017-01-21 09:03] VITALS: BP 168/76; PULSE 73; RESP 17; O2SAT 95
[2017-01-21] MEDS ORDERED: Lidocaine Topical 5% Patch TOPICAL SCH (09:15)
[2017-01-21 10:23] VITALS: PULSE 61
[2017-01-21 12:25] VITALS: BP 153/68; PULSE 53; RESP 18; O2SAT 95
--- NOTE | 2017-01-21 12:45 | NUR ---
Off Unit Pt off unit for stress test at 1230. research and development technician aware, vital signs stable, pt went down wearing shoes and his jacket. Pt voided prior to leaving and all questions answered.
--- NOTE | 2017-01-21 15:33 | DRSVH ---
PROCEDURE: 1 DAY PHARMACOLOGICAL STRESS TEST Rest and pharmacological stress myocardial perfusion SPECT with gated imaging and ejection fraction RADIOPHARMACEUTICAL: 10.4 mCi Tc-99m tetrafosmin IV at rest and 33.7 mCi Tc-99m tetrafosmin IV at pea k effect of pharmacological stress. A ext-olb-bszlebtv was performed. INDICATIONS: 81 year-old male with chest pain. The patient has coronary artery disease with history of myocardial infarction and coronary stenting 5 years ago. Evaluate myocardial ischemia. TECHNIQUE: Radiopharmaceutical was injected at peak stress test, and also at rest. SPECT images wer e obtained. SPECT myocardial perfusion images were displayed in short axis, horizontal long axis, an d vertical long axis views. Gated images were reviewed using [employer] software. COMPARISON: [place], [place] CARDIAC STRESS TEST 2 DAY, 06/26/2015, 10:41. [place], [place] CARDIAC STRESS TEST SINGLE, 03/11/2016, 11:02. CARDIAC STRESS: A pharmacologic stress test was performed under the supervision of an attending staff, using an infus ion of [employer]. Hemodynamic data: There is normal blood pressure and heart rate response to pharmacologic stress. Symptoms: The patient denied anginal chest pain. Aminophylline: 100 mg IV EKG: No diagnostic changes of ischemia; no ectopy. FINDINGS: Raw data: There is good myocardial uptake of radiotracer. No significant motion artifacts. Left ventricle function: Gated images demonstrate normal left ventricular wall thickening. No segme ntal wall motion abnormalities. No transient ischemic dilation. Left ventricle resting end diastoli c volume is normal. Left ventricle stress ejection fraction is greater than 70%; normal range is abo ve 45%. Myocardial perfusion: There is a small to medium sized, grbm-ev-sjcwijvb in severity, reversible per fusion defect in the lateral inferior wall and lateral apex, which is resolved on prone imaging, most likely caused by attenuation artifact. There is otherwise normal distribution of activity in the rig ht and left ventricular myocardium. Comparison to prior examinations: Compared to the last exam on 03/11/2016, a similar defect was prese nt on the prior examination, and appears minimally changed. IMPRESSION: 1. Probably normal myocardial perfusion images. No convincing evidence for myocardial ischemia or inf arct. 2. There is a small to medium sized, sicg-yi-jbrhsocjta severe, reversible defect in the lateral infe rior wall and inferior apex, which is resolved on prone imaging, suggesting diaphragmatic attenuation artifact. 3. Normal left ventricular volume and systolic function. 4. No chest pain or diagnostic EKG changes for ischemia. PQRS ATTESTATIONS: Measure 322 - Is this imaging test primarily performed on a low-risk surgery patient for preoperative evaluation within 30 days preceding their low-risk non-cardiac surgery? Low-risk surgery is defined as cardiac or myocardial infarction less than 1%, including (but not limited to) endoscopic pr ocedures, superficial procedures, cataract surgery, and excisional breast surgery: Answer: No Measure 323 - Is this imaging test performed primarily for the monitoring of an asymptomatic patient who had percutaneous coronary intervention on the visit date or within 2 years of the visit date? An swer: No Measure 324 - Is this imaging test performed primarily for the initial detection and risk assessment on an asymptomatic, low coronary heart disease patient? Low CHD risk definition = clinicians should consider the maximum number of available patient factors used to estimate risk based on Mcandrews (A TP III criteria), typically age, gender, diabetes, smoking status, and use of blood pressure medicati on, and integrate age appropriate estimates for missing elements, such as LDL or standard blood press ure. Answer: No Dictated by: Anastacio Bales M.D. on 01/21/2017 at 15:21 Approved by: Anastacio Bales M.D. on 01/21/2017 at 15:31
--- NOTE | 2017-01-21 16:43 | PCM.DIMED ---
Bola James DO 01/21/17 1555: Discharge Instructions Date of Service Jan 21, 2017 Dates of Hospitalization Jan 19, 2017 at 12:34 Discharge Diagnosis Discharge Diagnosis Elevated troponin of undetermined significance, present on admission Type II diabetes High-grade bladder cancer Chronic back pain, present remission Hyperlipidemia Hypertension COPD, present on admission Chronic kidney disease Medication Instructions Additional med instructions Please take all medications as previously prescribed. You may also use over the counter 2% lidocaine cream for relief of back pain. Por favor, tome todos los medicamentos que le hayan sido recetados previamente. Crissy puede utilizar sobre el mostrador 2% crema de lidocana para aliviar el dolor de espalda Test Results Test Results Imaging completed here in the hospital is as follows: An x-ray shows mild fluid in the lungs A CT scan of your chest shows gallstones in the gallbladder however no signs of inflammation at this time. An echocardiogram shows no change from previous Imagenes obtenidasaqu en el hospital muestran lo siguiente: Taylor radiografa muestra un poco de fluido en los pulmones Taylor tomografa del pecho muestra clculos biliares en la vescula, sin embargo, no hay signos de inflamacin en beatrice momento. Un ecocardiograma no muestra cambios comparado al anterior Diet Discharge Diet: Heart Healthy, Diabetic Activity Discharge Activity: No restrictions Call your provider Call your provider for: Fever or Chills, Shortness of breath, Bleeding, Chest pain, Vomitting, Excessive diarrhea, Weakness (unilateral) Patient Instructions Patient Instructions You came to the hospital with concern over right-sided back pain which is associated with chest pain. Because of your significant past medical history involving cardiac pathology, wanted to monitor you in the hospital for 48 hours to make sure that there were no cardiac complications at this time. From all of the testing that we were able to obtain, the pain in your back does not appear to be cardiac related. Please continue to take all medications as previously prescribed, avoid NSAIDs due to renal disease however you may use Tylenol for pain if effective. Llegaste al hospital con preocupacin del dolor de espalda derecho que se asocia con dolor en el pecho. Debido a orourke historial mdico significativo que implica patologa cardiaca, quriamos vigilarle en el hospital [facility] 48 horas para asegurarnos de que no hubo complicaciones cardacas en beatrice momento. De todas las pruebas que obtenemos, el dolor en la espalda no parece estar relacionado con el corazn. Por favor, contine tomando todos los medicamentos velasquez se prescribi previamente, evite las medicinas anti-inflamatorias debido a tu enfermedad renal, sin embargo, puedes usar Tylenol para el dolor si funciona cherelle. Follow-up plan Please follow-up with your primary care provider as soon as possible. Por favor, haz taylor visita con tu doctor de cabezera babin pronto velasquez sea posible. Follow-up Provider: Ivis Lau MD Follow-up with PCP in: 1 week Donovan Dean DO 01/22/17 0729: Discharge Instructions Attending's Statement Read and agree Bola James DO Jan 21, 2017 15:55 Donovan Dean DO Jan 22, 2017 07:29
--- NOTE | 2017-01-21 16:45 | NUR ---
Social Work: Initial Assessment/Discharge/Multidisciplinary Rounds D: Per EMR review, pt is an 81 year old male admitted for chest pain/abnormal Trop. Pt is listed as self-pay insurance however per [facility], pt is active with Medicaid. PCP is Traci Samuel PA-C. NOK is Lashawn Ge, , . Advanced directives completed- MANAGER MEDICAL requested copy for chart. Readmit score is low, 1/8. Pt discussed in multidisciplinary rounds with attending and resident providers. Pt is being discharged home pending the results of his stress test. Capacity for self-care addressed; no concerns. Pt lives at home with his and daughters and is I with ADLs. MANAGER MEDICAL met with the patient, spouse and son at bedside. Through the use of an lang interpreter, sw role explained, contact information and d/c planning checklist provided. See initial assessment. They confirm pt's is living at home with his family, he owns a walker which he does not use. Pt does not drive and has never had HH Or skilled rehab/nursing. Pt and family express no concerns about discharge. Pt's son will be transporting. MANAGER MEDICAL provided them with a [facility] cedric care application to complete in case their Medicaid is not yet finalized. A: Pt who is I with ADLs and ambulating I during admission P: Pt to discharge home via POV and no sw needs; pt's son to transport. ALYSSA Isaacs Addendum: 01/21/17 at 1650 by JAMES VIDES Amended: Links added.
--- NOTE | 2017-01-21 17:03 | PCM.DC.MED ---
Discharge Summary Date of Service Jan 21, 2017 Dates of Hospitalization Date of Hospital Admission Jan 19, 2017 at 12:34 Date of Discharge: Jan 21, 2017 Providers: Admitting Physician: Kd Amaya MD Primary Care Physician: Traci Samuel PA-C Attending Physician: Donovan Dean DO Diagnosis at Time of Discharge Diagnosis at Time of Discharge Elevated troponin of undetermined significance, present on admission Type II diabetes High-grade bladder cancer Chronic back pain, present remission Hyperlipidemia Hypertension COPD, present on admission Chronic kidney disease Consultations Cardiology: Dr. Young Procedures XRay, CTs & MRIs X-RAY CHEST ONE VIEW, PORTABLE IMPRESSION: Mild pulmonary edema pattern with superimposed bibasilar atelectasis associated with reduced inspiration. Dictated by: Delmer Falcon M.D. on 01/19/2017 at 9:20 Approved by: Delmer Falcon M.D. on 01/19/2017 at 9:21 CT ANGIO CHEST PULMONARY EMBOLISM IMPRESSION: No pulmonary embolus found. Multiple small gallstones are seen layering dependently within the gallbladder lumen but there is no sign of biliary obstruction or acute cholecystitis. These were previously present. Dictated by: Delmer Falcon M.D. on 01/19/2017 at 11:29 Approved by: Delmer Falcon M.D. on 01/19/2017 at 11:31 ECG 12 Lead 3 EKG unchanged showing Sinus bradycardia Increased SC interval (221) Right bundle branch block Cardiac Echo Impression Interpretation Summary Left ventricular systolic function is normal without focal wall motion abnormalities with the ejection fraction visually estimated to be 65-70%. Left ventricular wall thickness is borderline increased with diastolic parameters suggesting a relaxation abnormality of the left ventricle, consistent with normal filling pressures. There has been no significant change since the previous study. The right ventricle grossly appears normal in size with probable normal systolic function and grossly appears unchanged compared to the previous study. Pulmonary artery pressures cannot be estimated because of the lack of a measurable TR jet velocity but the IVC suggests a low right atrial pressure of 3 mm Hg. The left atrium is mildly dilated and is unchanged in size. Right atrial size is normal but has inreased slightly compared to the previous study. There is mild mitral regurgitation that is unchanged compared to the previous study. The aortic valve is not well visualized but appears to be moderately calcified with probable moderate aortic stenosis, likely unchanged compared to the previous study. The peak aortic velocity is 2.9 m/sec with a mean gradient of 15 mmHg, both similar to the previous study. There is mild to moderate aortic regurgitation that is also unchanged compared to the previous study. There is no other significant valvular heart disease. Reading Physician:12:26 PM . Invasive Procedures 1 DAY PHARMACOLOGICAL STRESS TEST IMPRESSION: 1. Probably normal myocardial perfusion images. No convincing evidence for myocardial ischemia or infarct. 2. There is a small to medium sized, vgoh-va-eyelskoizh severe, reversible defect in the lateral inferior wall and inferior apex, which is resolved on prone imaging, suggesting diaphragmatic attenuation artifact. 3. Normal left ventricular volume and systolic function. 4. No chest pain or diagnostic EKG changes for ischemia. Dictated by: Anastacio Bales M.D. on 01/21/2017 at 15:21 Approved by: Anastacio Bales M.D. on 01/21/2017 at 15:31 Brief History Taken from H&P completed by Dr. 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 The pain woke the pt from sleep and gradually worsened. In the emergency department He rated the pain at a 9/10 associated with chest pain and nausea. Pt denies SOB, vomiting, fever, coughing, diaphoresis, or fever. The pain is exacerbated exacerbated with left rotation and palpation of the area. Pt denies recent injuries, trauma, or falls. The pt has experienced similar symptoms before but was not given a definitive diagnosis at that time. His workup included serial EKGs, no acute interval change. Chest x-ray was unremarkable, and blood work was notable for an indeterminate elevated troponin. Additionally his d-dimer was elevated, so in the setting CT imaging was obtained but was negative for acute disease, redemonstration of known cholelithiasis was identified-further clinical features of cholecystitis evident. The patient received aspirin, Dilaudid, nitroglycerin paste. Symptoms resolved with pain medication, although he requested additional hydrocodone. Due to the patient's extensive coronary history and peripheral vascular disease, in combination with his complaints of chest discomfort associated with nausea, indeterminate troponin levels, he should be admitted to the hospital for ACS rule out. 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 Elevated troponin of undetermined significance, present on admission, active Moderately elevated troponins on admission. Due to the patient's chronic history of heart disease this could represent his baseline. Due to the patient's pain being reproducible in conjunction with negative EKGs this likely represents a musculoskeletal injury however given his extensive history of cardiac disease, close monitoring is certainly warranted. - D-dimer elevated, CTA negative - Chest x-ray negative - Troponins waxing waning with minimal elevation - Last echo 02/23/2016, Repeat ECHO shows EF 60-70 with borderline diastolic dysfunction - Initially given Aspirin and Dilaudid for pain - Continue home aspirin 81 mg - Continue home tramadol for pain control - Continue home amlodipine - Continue home isosorbide mononitrate - Continue home Plavix - Stress test shows no sign of ischemic disease Type II diabetes -Hemoglobin A1c 6.3 -Resume home metformin High-grade bladder cancer, active - UA reflexed urine culture, possibly due to bladder cancer. - Culture shows mixed urogenital mimi Chronic back pain, present remission, active -Continue home tramadol -Responsive to Tylenol -Suggest OTC lidocaine cream for use at home Hyperlipidemia -Continue home atorvastatin Hypertension - Continue home isosorbide mononitrate - Continue home amlodipine COPD, present on admission, stable - No associated shortness of breath Chronic kidney disease, stable - BUN and creatinine within normal limits - Continue to monitor Exam Vital Signs (Last) Date Time Temp Pulse Resp B/P Pulse Ox O2 Delivery O2 Flow Rate FiO2 01/21/17 12:25 36.9 53 18 153/68 95 Room Air Exam General: No acute distress, well-developed, well-nourished Head: Normocephalic, atraumatic. External ears without defect. Eyes: Pupils equal, round, and reactive to light and accommodation. Anicteric sclerae, moist conjunctivae. Neck: Normal range of motion, no lymphadenopathy noted MSK: Increased pain with palpation of the right upper spine. Cardiovascular: Regular rate and rhythm with no murmurs, rubs, or gallops appreciated Pulmonary: Clear to auscultation bilaterally with no crackles, wheezes, or rhonchi. Normal respiratory effort with no use of accessory muscles. Abdomen: Bowel tones present. Soft, nontender, nondistended. Extremities: No clubbing, cyanosis, edema Skin: Normal temperature, turgor, and texture; no rash, ulcers, or subcutaneous nodules appreciated. Neurological: Cranial nerves grossly intact. Reflexes, coordination, and sensory function within normal limits. Normal muscle strength, tone, and bulk. Psychiatric: Normal mood and affect. Alert and oriented to person, place, and time Test 01/19/17 08:05 01/19/17 09:00 01/19/17 13:48 01/20/17 02:50 D-Dimer 1.29mg/L FEU (<0.50) Pro-B-Type Natriuretic Peptide 301.5pg/mL (0-486) Urine Color Yellow (YELLOW) Urine Appearance Clear (CLEAR,HAZY) Urine pH 6.0 (5.0-8.0) Urine Specific Linn 1.011 (1.003-1.035) Urine Protein 30mg/dL (NEG,TRACE) Urine Glucose (UA) Negativemg/dL (NEGATIVE) Urine Ketones Negativemg/dL (NEGATIVE) Urine Occult Blood Trace (NEGATIVE) Urine Nitrite Negative (NEGATIVE) Urine Bilirubin Negative (NEGATIVE) Urine Urobilinogen Normalmg/dL (NORMAL) Urine Leukocyte Esterase Small (NEGATIVE) Urine RBC 3-10/hpf (0-2) Urine WBC 11-50/hpf (0-5) Urine Epithelial Cells Few/hpf (NONE-MOD) Urine Crystals None seen (NONE SEEN) Urine Bacteria None/hpf (NONE-FEW) Urine Hyaline Casts None/lpf (NONE) Urine Granular Casts None seen (NONE SEEN) Urine Waxy Casts None seen (NONE SEEN) Urine Red Blood Cell Casts None seen (NONE SEEN) Urine White Blood Cell Casts None seen (NONE SEEN) Urine Mucus None seen (None Seen) Urine Trichomonas None seen (NONE SEEN) Urine Yeast None (NONE SEEN) Urinalysis Comment None Urine Culture Reflexed Indicated Hold Urine Received (Received) Hemoglobin A1c 6.3% (4.8-5.6) Ionized Calcium 1.12mmol/L (1.17-1.32) Troponin T 0.019ug/L (0.0-0.011) Triglycerides Level 124mg/dL (0-149) Cholesterol Level 114mg/dL (100-199) LDL Cholesterol, Calculated 62.200mg/dL (0-99) VLDL Cholesterol 24.800mg/dL HDL Cholesterol 27mg/dL (>39) Cholesterol/HDL Ratio 4.22 (0.0-4.4) Thyroid Stimulating Hormone (TSH) 3.140uIU/mL (0.450-4.500) Test 01/21/17 03:14 White Blood Count 6.5th/mm3 (3.8-10.1) Red Blood Count 3.93mil/mm3 (4.40-5.80) Hemoglobin 11.4g/dL (13.8-17.2) Hematocrit 34.3% (41.0-50.0) Mean Corpuscular Volume 87.3fL (81-100) Mean Corpuscular Hemoglobin 29.0pg (27.0-35.0) Mean Corpuscular Hemoglobin Concent 33.2% (32.0-37.0) Red Cell Distribution Width 13.9% (12.3-15.4) Platelet Count 234bil/L (150-400) Neutrophils (%) (Auto) 61.6% (40-74) Lymphocytes (%) (Auto) 20.7% (14-46) Monocytes (%) (Auto) 9.6% (4-12) Eosinophils (%) (Auto) 7.7% (0-5) Basophils (%) (Auto) 0.2% (0-3) Sodium Level 137mEq/L (134-144) Potassium Level 4.6mEq/L (3.5-5.2) Chloride Level 101mEq/L (97-108) Carbon Dioxide Level 21mmol/L (18-29) Blood Urea Nitrogen 26mg/dL (8-27) Creatinine 1.38mg/dL (0.76-1.27) Estimat Glomerular Filtration Rate 52mL/min (>59) Glucose Level 107mg/dL (60-99) Calcium Level 8.7mg/dL (8.5-10.1) Phosphorus Level 3.6mg/dL (2.5-4.9) Magnesium Level 2.2mg/dL (1.6-2.6) Total Bilirubin 0.4mg/dL (0.0-1.2) Aspartate Amino Transf (AST/SGOT) 14U/L (0-50) Alanine Aminotransferase (ALT/SGPT) 9U/L (0-44) Alkaline Phosphatase 74U/L (25-160) Total Protein 7.2g/dL (6.4-8.4) Albumin 4.1g/dL (3.4-5.0) Microbiology Results Urine culture, no growth to date Discharge Medications Discharge Medications Amlodipine (Amlodipine) 2.5 Mg Tablet 2.5 MG PO BID (Reported) Aspirin Chew (Aspirin Chew) 81 Mg Chew 81 MG PO DAILY Prescribed by: ANASTASIA JOHNSON MD Atorvastatin Calcium (Atorvastatin Calcium) 10 Mg Tablet 10 MG PO HS Prescribed by: EMILIE DAVILA DO Clopidogrel (Clopidogrel) 75 Mg Tablet 75 MG PO DAILY (Reported) Isosorbide MN ER (Isosorbide MN ER) 60 Mg Tab.er.24h 60 MG PO DAILY (Reported) Metformin (Metformin) 500 Mg Tablet 500 MG PO DAILY (Reported) Metoprolol Tartrate (Metoprolol Tartrate) 25 Mg Tablet 25 MG PO BID (Reported) As needed Dextran 70/Hypromellose/Pf (Artificial Tears Drops) 1 Each Droperette 1 DROP BOTH_EYES BID PRN PRN For Eye Irritation (Reported) Nitroglycerin SL (Nitrostat) 0.4 Mg Tab.subl 0.4 MG SL Q5MIN PRN PRN For Chest Pain (Reported) Phenazopyridine (Azo Urinary Pain Relief) 97.5 Mg Tablet 2 EACH PO TID PRN PRN urinary burning (Reported) Tramadol (Tramadol) 50 Mg Tablet 50 MG PO Q4H PRN PRN For Pain (Reported) Additional med instructions Please take all medications as previously prescribed. You may also use over the counter 2% lidocaine cream for relief of back pain. Por favor, tome todos los medicamentos que le hayan sido recetados previamente. Crissy puede utilizar sobre el mostrador 2% crema de lidocana para aliviar el dolor de espalda Followup Plan Disposition: Home Follow-up plan Please follow-up with your primary care provider as soon as possible. Por favor, haz taylor visita con tu doctor de cabezera babin pronto velasquez sea posible. Discharge Diet: Heart Healthy, Diabetic Discharge Activity: No restrictions Patient Instructions You came to the hospital with concern over right-sided back pain which is associated with chest pain. Because of your significant past medical history involving cardiac pathology, wanted to monitor you in the hospital for 48 hours to make sure that there were no cardiac complications at this time. From all of the testing that we were able to obtain, the pain in your back does not appear to be cardiac related. Please continue to take all medications as previously prescribed, avoid NSAIDs due to renal disease however you may use Tylenol for pain if effective. Llegaste al hospital con preocupacin del dolor de espalda derecho que se asocia con dolor en el pecho. Debido a orourke historial mdico significativo que implica patologa cardiaca, quriamos vigilarle en el hospital [facility] 48 horas para asegurarnos de que no hubo complicaciones cardacas en beatrice momento. De todas las pruebas que obtenemos, el dolor en la espalda no parece estar relacionado con el corazn. Por favor, contine tomando todos los medicamentos velasquez se prescribi previamente, evite las medicinas anti-inflamatorias debido a tu enfermedad renal, sin embargo, puedes usar Tylenol para el dolor si funciona cherelle. Follow-up Provider: Ivis Lau MD Follow-up with PCP in: 1 week Time spent Greater than 35 minutes spent on documentation and coordination of discharge. Attending Statement I have seen and evaluated patient at bedside in addition to directly supervising care provided by Dr James on 01/21/2017. I agree with above documentation. copies to: Ivis Lau MD, Adam J DO Jan 21, 2017 17:03 Donovan Dean DO Jan 22, 2017 07:31
--- NOTE | 2017-01-21 18:36 | NUR ---
Discharge Pt left with family at 1800. All belongings taken with, IV and Tele removed. Crematory Attendant called to go over discharge. No changes in home medications. All questions answered, follow up apt made and understood.
[2017-01-22] MEDS ORDERED: Isosorbide Mononitrate 60 mg ER24 Tablet PO SCH (08:30)
== END 2017-01-21 18:00 | disposition home or self-care (01) ==
LOC: SED 07:38 → PCC 12:34
PROVIDERS: ADMIT Internal Medicine; ATTEND Internal Medicine
DX: R07.9 Chest pain, unspecified (principal); R79.89 Other specified abnormal findings of blood chemistry; E11.22 Type 2 diabetes mellitus with diabetic chronic kidney disease; C67.9 Malignant neoplasm of bladder, unspecified; M54.9 Dorsalgia, unspecified; E78.5 Hyperlipidemia, unspecified; I12.9 Hypertensive chronic kidney disease with stage 1 through stage 4 chronic kidney disease, or unspecified chronic kidney disease; J44.9 Chronic obstructive pulmonary disease, unspecified; N18.2 Chronic kidney disease, stage 2 (mild); I25.10 Atherosclerotic heart disease of native coronary artery without angina pectoris; I35.1 Nonrheumatic aortic (valve) insufficiency; I38 Endocarditis, valve unspecified; I25.2 Old myocardial infarction; Z95.5 Presence of coronary angioplasty implant and graft; Z79.82 Long term (current) use of aspirin; Z79.84 Long term (current) use of oral hypoglycemic drugs; Z87.440 Personal history of urinary (tract) infections; Z87.891 Personal history of nicotine dependence
CPT/HCPCS: 36415; 71010; 71275; 78452; 80053; 80061; 81000; 83036; 83735; 83880; 84100; 84443; 84484; 85025; 85378; 87086; 87088; 93005; 93017; 96372; 96374; 96375; 99285; A9502; C8929; G0378; J0280; J1170; J1644; J1815; J2405; J2785; Q9957; Q9967

== ENCOUNTER → 2017-01-31 | Day surgery (SDC) | payer MEDICAID ==
--- NOTE | 2017-01-23 14:27 | PCM.ANEPRE ---
Anesthesia Pre-Op Review Reason for Review: recent admission chest pain, elevated troponins Anesthesia Recommendations: Proceed with Procedure Additional Comments After stress test, ECHO and trended troponins it was determined that his recent chest pain was likely not cardiac in origin. He did not show any ischemia on the stress test and the mildly elevated troponins were thought to be at his baseline Chart Reviewed by: Santino Zavala MD Jan 23, 2017 14:27
[~2017-01-31] VITALS: Ht 167.6 cm; Wt 85.7 kg
[~2017-01-31] MED LIST changes: +Bupivacaine-MPF 0.25% 30 mL Inj INFILTRATE ONE; +CLOP75TA28 PO; +CeFAZolin 2 Gm/50 mL D5W Duplex Bag IV ONE; +CeFAZolin 2 Gm/50 mL D5W IV Premix IV SCH; +CeFAZolin Inj 2 GM in IV Premix 1 EACH IV ONE; +Dexamethasone 4 mg/mL Inj IVPUSH PRN; +EPHEDrine Sulfate 50 mg/mL Inj IVPUSH PRN; +EPHEDrine/NS 5 mg/mL 5 mL Syringe ONE; +HYDROmorphone 1 mg/mL Inj IVPUSH PRN; +HepLOK Flush 100 unit/mL 5 mL Inj IVFLUSH ONE; +Lactated Ringer's 1,000 ML IV SCH; +Lactated Ringer's 500 ML IV PRN; +MetoCLOpramide 5 mg/mL 2 mL Inj IVPUSH PRN; +Ondansetron 2 mg/mL 2 mL Inj IVPUSH PRN; +Phenylephrine 10,000 mCg/mL Inj IVPUSH PRN; +Propofol 10 mg/mL 20 mL Inj ONE; +fentaNYL-PF 50 mCg/mL 2 mL Inj IVPUSH PRN; +fentaNYL-PF 50 mCg/mL 20 mL Inj ONE; +oxyCODONE-Acetamin 5-325 mg Tablet PO PRN
[2017-01-31] MEDS: Lactated Ringer's 1,000 ML IV SCH ×2 (10:28→11:38)
[2017-01-31 10:44] VITALS: BP 110/51; PULSE 43; RESP 15; O2SAT 95
--- NOTE | 2017-01-31 11:21 | PCM.HPANE ---
Patient Data Date of Service: Jan 31, 2017 Surgeon Admitting Provider: Attending Provider:Yesi Boo MD Primary Care Physician:Traci Samuel PA-C Other Provider:Daija Perez Anesthesia Reason for Visit Bladder Cancer Ht/WT & BMI Height (Feet): 5 Height (Inches): 6 Weight (Kilograms): 85.7 Body Mass Index 30.00 Allergies Coded Allergies: No Known Allergies (Verified Allergy, Unknown, 01/19/17) Past Anesthesia History Anesthesia History: Denies:: Abnormal Airway, Anesthesia Reactions, Difficult Intubation, Malignant Hyperthermia Diabetes History Hx Diabetes?: Yes Type of Diabetes: Type II Glycemic Control: Oral Medication Current Bedside Blood Glucose: 97 MRSA MRSA: No Medications Blood Thinner: Aspirin Hypertension Medication: Yes Home Meds Incl Beta Akilah: Yes Date Beta Akilah Taken: Jan 31, 2017 Time Beta Akilah Taken: 0800 Active Scripts Atorvastatin Calcium 10 Mg Venbri62 Mg PO HS #30 TABLET Ref 5 Prov:Reagan Lopez DO 03/12/16 Aspirin Chew 81 Mg Chew81 Mg PO DAILY 90 Days Prov:Ravinder Hernandez 03/07/16 Reported Medications Clopidogrel 75 Mg Zxtwug78 Mg PO DAILY Ref 0 01/19/17 Tramadol 50 Mg Odkqqi16 Mg PO BID PRN For Pain Ref 0 06/12/16 Metoprolol Tartrate 25 Mg Zkhbzk04 Mg PO BID 30 Days Ref 0 06/12/16 Isosorbide MN ER 60 Mg Tab.er.24h60 Mg PO DAILY 06/12/16 Amlodipine 2.5 Mg Tablet2.5 Mg PO BID Ref 0 06/12/16 Phenazopyridine (Azo Urinary Pain Relief)97.5 Mg Tablet2 Each PO TID PRN urinary burning 02/22/16 Dextran 70/Hypromellose/Pf (Artificial Tears Drops)1 Each Droperette1 Drop BOTH_ EYES BID PRN For Eye Irritation 02/22/16 Metformin 500 Mg Hcgcgr131 Mg PO DAILY 02/22/16 Nitroglycerin SL (Nitrostat)0.4 Mg Tab.subl0.4 Mg SL Q5MIN PRN For Chest Pain 08/31/15 History History of ENT Problems?: Yes HEENT History: Positive for:: Cataracts Dysphagia Sinus Problem (seasonal allergies) Denies:: Abnormal Airway Difficult Intubation Denture Type: Full- Upper Full- Lower Teeth Condition: Missing Teeth Hx of Heart Problems?: Yes Cardiovascular History: Positive for:: Chest Pain (recent hosp admission 2016. wnl. known cardiac disease) Hypertension Valvular Heart Disease (echo 01/2017) Denies:: Cardiac Surgery ([facility] to [facility]- 2015) Congestive Heart Failure Heart Murmur Irregular Heartbeat Hx of Respiratory Problem?: Yes Respiratory History: Positive for:: Dyspnea Pneumonia ( past hx of) Denies:: COPD Oxygen Administration Tuberculosis Use of C-PAP Machine Hx Neurologic Problems?: Yes Neurological History: Positive for:: CVA Denies:: Alzheimer's Disease Headaches Multiple Sclerosis Parkinson's Disease Seizures Hx of GI Problems?: Yes Hx of Problems?: Yes Genitourinary History: Positive for:: Kidney Stones (past hx of) Denies:: Urinary Tract Infection Other Pertinent History: bladder cancer Male Hx: Positive for:: Prostate Problems (TURP x 2) Denies:: Scrotal Mass Testicular Surgery Skin History: Positive for:: History Skin Disorders? (pruritis) Denies:: Pressure Ulcers Hx Musculoskeletal Problems?: Yes Musculoskeletal History: Positive for:: Back Injury (chronic back pain) Hx of Psycho/Social Problems?: No Psycho Social History: Denies:: Anxiety Hx Depression Hx Surgeries?: Yes (appy, TURPx2, r.eyeball enucleation, kira) Hx Any Other Health Problems?: Yes Other History: Positive for:: Cancer (bladder ca) Hospitalization (06/2015 PNEUMONIA) Denies:: Endocrine Disease Thyroid Disease History Blood Transfusions: Denies:: Blood Transfuse Reaction Blood Transfusions Hx Diabetes: YesBedside Blood Glucose: 97 Hx Alcohol Use: Yes (Drinks 1 beer per month)Hx Substance Use: No Smoking Status: Former Smoker Have You Smoked inLast 12 mo: No Stop/Bang P-Blood Pressure: treated: Yes B- Body Mass Index > 35 kg/m2: No A- Age over 50: Yes N- Neck Large Circumference: No G- Gender Male: Yes NIA Risk Assessment: High Risk, =/>3 Yes NIA Category 4 OutPt Procedure: Yes Risk Assessment Category Category 1A: Patient has history of documented sleep apnea, and HAS NOT received any narcotic, sedative or anesthesia administration during this stay. Category 1B: Patient has history of documented sleep apnea, and HAS received any narcotic , sedative or anesthesia administration during this stay Category 2: Patient has SUSPECTED Obstructive Sleep Apnea, and HAS received any narcotic , sedative or anesthesia administration during this stay. Category 3: Patient has SUSPECTED Obstructive Sleep Apnea and HAS NOT received narcotic, sedative or anesthesia administration during this stay. Category 4: Outpatient in Procedural Areas with known sleep apnea or who screen positive for High Risk via the STOP/BANG questionnaire. Exam Exam Vital Signs Vital Signs Date Time Temp Pulse Resp B/P Pulse Ox O2 Delivery O2 Flow Rate FiO2 01/31/17 10:44 36.5 43 15 110/51 95 Room Air General Appearance: Alert, Oriented X3, Cooperative HEENT/AIRWAY: MP 3, Neck Movement (ok) Lungs: Clear to Auscultation, Normal Air Movement Heart: Normal S1, Normal S2, Other (bradycarduia) Meds/Labs/Diagnostics Admission Meds Current Medications Lactated Ringer's (Lr) 1,000 ml @ 120 mls/hr Q8H20M IV Last administered on t 10:28; Start 01/31/17 at 05:00; Stop 01/31/17 at 13:19 Bedside Blood Glucose: 97 Plan Impression Patient chart reviewed, patient interviewed and anesthestic plan with risks, benefits, and alternatives discussed, and informed consent obtained. NPO per Anesth. 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 Known cardiac disease with stents in [place]. Off plavix 8 days. Worked for cardiac issues during admission last week Cassius Shafer MD Jan 31, 2017 11:21
[2017-01-31 12:40] VITALS: BP 114/52; PULSE 50; RESP 16; O2SAT 98
--- NOTE | 2017-01-31 12:46 | PCM.SURGOP ---
Surgical Operative Report Date of Service: Jan 31, 2017 Pre Operative Diagnosis Bladder cancer Post Operative Diagnosis Bladder cancer Procedure: Right internal jugular port placement with ultrasound guidance with interpretation, and with fluoroscopic guidance with interpretation. Surgeon and Smt Technician: Surgeon: Yesi Boo MD Assistants: Marissa Cabrera MS3 Indication for Procedure This is an 81-year-old man who was diagnosed with bladder cancer and was pending chemotherapy. Port placement was requested by his oncologist. Findings: The port tip was at the cavoatrial junction at the end of the procedure. The port aspirated and flushed easily. It was flushed with 10 mL of heparin solution, 100U/mL, at the end of the case. Procedure Details The patient was brought to the operating room and placed in supine position. General anesthesia with a LMA was smoothly induced. Antibiotics were infused. A warming blanket and SCDs were placed. The operative field was prepped and draped in sterile fashion. A pause was performed to confirm the correct patient , procedure, site, and side. The right internal jugular vein was identified with the ultrasound. It was then accessed with a single stick, and a wire was threaded. Fluoroscopy confirmed the wires presence on the right side of the heart. The position of the tip of the wire at the cavoatrial junction was measured. A pocket was made in the tissue overlying the right pectoralis. The port was inserted and sewn into place with two interrupted Prolene stitches. It was then tunneled to the site of the wire using a small counter incision. The port catheter was then cut to the appropriate size as previously measured by the wires position on fluoroscopy. Dilation was then performed under fluoroscopic guidance. The sheath was left in place and the catheter was inserted. The sheath was removed and the two sides were found to be completely intact. The tip of the port was found to be positioned at the cavoatrial junction on fluoroscopy. The catheter was not kinked on fluoroscopy. The port aspirated and flushed easily at the end of the case. It was infused with 10 mL of 100 units/mL heparin solution. The subcutaneous tissue overlying the port was closed with a 3-0 Vicryl stitch. The skin at the port site, the wire access site, and counter incision was closed with a 4-0 subcuticular Monocryl stitch. Marcaine 0.5% with epinephrine was injected in the skin overlying the port as well as the stick site. A sterile dressing was placed. The patient tolerated the procedure well, and was awakened from general anesthesia and taken to the postoperative care unit in good condition. Complications There were no periprocedural complications identified. Surgical Specimen Removed: No Specimen sent to Pathology: No Anesthetic Plan: MAC Grafts, Implants: Implants-See Implant Record Output, Estimated Blood Loss: 5 (ml) Blood Administration during orourke: No Yesi Boo MD Jan 31, 2017 12:46
--- NOTE | 2017-01-31 12:49 | PCM.ANEP1 ---
Post Anesthesia PACU Phase 1 Assessment Date of Service: Jan 31, 2017 Vital Signs Vital Signs Date Time Temp Pulse Resp B/P Pulse Ox O2 Delivery O2 Flow Rate FiO2 01/31/17 12:40 36.1 50 16 114/52 98 Room Air 01/31/17 10:44 36.5 43 15 110/51 95 Room Air Anesthetic Administered: MAC Level of Alertness: Sleepy, easy to arouse HULL's with Equal Strength: Yes Pain: No Nausea or Vomiting: No CV Function & Hydration Stable: Yes Airway Device: Oxygen Delivery: Room Air Lungs: Normal Air Movement Dermatome Level: Full Sensation PACU Phase 2 Assessment Complications: No Follow up Care: N/A Patient Instructions Provided: N/A Cassius Shafer MD Jan 31, 2017 12:49
[2017-01-31 13:07] VITALS: BP 132/60; PULSE 44; RESP 18; O2SAT 98
--- NOTE | 2017-01-31 13:17 | DRSVH ---
PROCEDURE: X-RAY CHEST ONE VIEW, PORTABLE ([id number]) INDICATIONS: port TECHNIQUE: One view of the chest was acquired. COMPARISON: [facility], CR, XR CHEST 1VW (PORTABLE), 01/19/2017, 8:23. FINDINGS: Surgical changes and devices: Right-sided central line catheter is positioned with the tip overlying the superior vena cava. Lungs and pleura: Mild bibasilar atelectasis versus scarring is identified. There is no focal consol idation, large effusion, or pneumothorax. Mediastinum: Mediastinal contours appear normal. Heart size is normal. There is aortic atheroscler osis. Bones and chest wall: No suspicious bony lesions. Overlying soft tissues appear unremarkable. IMPRESSION: Right-sided central line catheter is positioned with the tip overlying the low superior v amna cava. No pneumothorax. Dictated by: Tico Benavides M.D. on 01/31/2017 at 12:14 Approved by: Tico Benavides M.D. on 01/31/2017 at 12:15
== END | disposition home or self-care (01) ==
LOC: SAS 10:08
PROVIDERS: ATTEND Surgery
DX: C67.2 Malignant neoplasm of lateral wall of bladder (principal); E11.9 Type 2 diabetes mellitus without complications; I10 Essential (primary) hypertension; E78.5 Hyperlipidemia, unspecified; I25.10 Atherosclerotic heart disease of native coronary artery without angina pectoris; Z95.5 Presence of coronary angioplasty implant and graft; I65.23 Occlusion and stenosis of bilateral carotid arteries; Z86.73 Personal history of transient ischemic attack (TIA), and cerebral infarction without residual deficits; F32.9 Major depressive disorder, single episode, unspecified; F41.9 Anxiety disorder, unspecified; K27.9 Peptic ulcer, site unspecified, unspecified as acute or chronic, without hemorrhage or perforation; Z87.891 Personal history of nicotine dependence; Z79.02 Long term (current) use of antithrombotics/antiplatelets; Z79.84 Long term (current) use of oral hypoglycemic drugs; Z79.82 Long term (current) use of aspirin

== ENCOUNTER 2017-02-09 12:04 | Emergency (ER) | payer SELFPAY ==
[~2017-02-09] VITALS: Ht 180.3 cm; Wt 86.4 kg
[~2017-02-09 12:04] MED LIST changes: -Bupivacaine-MPF 0.25% 30 mL Inj INFILTRATE ONE; -CeFAZolin 2 Gm/50 mL D5W Duplex Bag IV ONE; -CeFAZolin 2 Gm/50 mL D5W IV Premix IV SCH; -CeFAZolin Inj 2 GM in IV Premix 1 EACH IV ONE; -Dexamethasone 4 mg/mL Inj IVPUSH PRN; -EPHEDrine Sulfate 50 mg/mL Inj IVPUSH PRN; -EPHEDrine/NS 5 mg/mL 5 mL Syringe ONE; -HYDROmorphone 1 mg/mL Inj IVPUSH PRN; -HepLOK Flush 100 unit/mL 5 mL Inj IVFLUSH ONE; -Lactated Ringer's 1,000 ML IV SCH; -Lactated Ringer's 500 ML IV PRN; -MetoCLOpramide 5 mg/mL 2 mL Inj IVPUSH PRN; -Ondansetron 2 mg/mL 2 mL Inj IVPUSH PRN; -Phenylephrine 10,000 mCg/mL Inj IVPUSH PRN; -Propofol 10 mg/mL 20 mL Inj ONE; -fentaNYL-PF 50 mCg/mL 2 mL Inj IVPUSH PRN; -fentaNYL-PF 50 mCg/mL 20 mL Inj ONE; -oxyCODONE-Acetamin 5-325 mg Tablet PO PRN
[2017-02-09 12:10] VITALS: BP 144/69; PULSE 59; RESP 15; O2SAT 96
--- NOTE | 2017-02-09 12:18 | ED.REPORT ---
HPI- Male Date of Service Feb 09, 2017 ED Provider: Mark Choudhary MD The pt is a 81 y/o male w/ a hx of HTN, bladder cancer, Type 2 diabetes, a MS, stage 2 chronic kidney disease, a prostatectomy, hyperlipidemia, and multiple other chronic conditions presenting to the ED due to hematuria onset last night. He has had difficulty urinating and a "fullness" in his abdomen for the last two years. Denies fever, vomiting, or nausea. The pt has bladder cancer and last had chemotherapy treatment yesterday. Nursing Notes Stated Complaint: URINARY ISSUE Chief Complaint: Hematuria Nursing Notes Reviewed: Yes Allergies: Coded Allergies: No Known Allergies (Verified Allergy, Unknown, 01/19/17) Scheduled Amlodipine (Amlodipine) 2.5 Mg Tablet 2.5 MG PO BID Aspirin Chew (Aspirin Chew) 81 Mg Chew 81 MG PO DAILY Atorvastatin Calcium (Atorvastatin Calcium) 10 Mg Tablet 10 MG PO HS Clopidogrel (Clopidogrel) 75 Mg Tablet 75 MG PO DAILY Isosorbide MN ER (Isosorbide MN ER) 60 Mg Tab.er.24h 60 MG PO DAILY Metformin (Metformin) 500 Mg Tablet 500 MG PO DAILY Metoprolol Tartrate (Metoprolol Tartrate) 25 Mg Tablet 25 MG PO BID Scheduled PRN Dextran 70/Hypromellose/Pf (Artificial Tears Drops) 1 Each Droperette 1 DROP BOTH_EYES BID PRN PRN For Eye Irritation Nitroglycerin SL (Nitrostat) 0.4 Mg Tab.subl 0.4 MG SL Q5MIN PRN PRN For Chest Pain Phenazopyridine (Azo Urinary Pain Relief) 97.5 Mg Tablet 2 EACH PO TID PRN PRN urinary burning Tramadol (Tramadol) 50 Mg Tablet 50 MG PO BID PRN PRN For Pain General Time Seen by MD: 12:18 Chief Complaint Blood in urine Hx Obtained From: Patient Arrived By: Walk-in Onset Occurred: Yesterday Symptom Duration: Since onset Recent Healthcare: No recent hospitalization, Recent doctor visit Past Medical History Past Medical History Notes: Urologist Dr. Toscano Past Medical History h/o E Coli ESBL UTI 10/2015 h/o Anemia secondary to upper GI bleed with gastric antral ulcer June 2015, attributed to NSAIDS CAD w/N STEMI in June 2015, h/o cardiac stents History of aortic valve insufficiency Diabetes Type II CVA Chronic kidney disease, Stage II Hypertension Bladder CA (recurrent, high grade transitional cell) -> chemoradiation planned Pruritus Chronic Back Pain History of carotid artery stenosis, with July 2016 ultrasound revealing 70% to near occlusion of the left internal carotid, 50-60% occlusion of the right internal carotid History of CVA MS Reports: COPD, Coronary artery disease, Hyperlipidemia, Hypertension Past Surgical History Enucleation of right eyeball Endoscopy June 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 Physical Exam Initial Vital Signs Vital Signs (First) Date Time Temp Pulse Resp B/P Pulse Ox O2 Delivery O2 Flow Rate FiO2 02/09/17 12:10 36.3 59 15 144/69 96 Room Air Initial VS: Reviewed General/Constitutional: Well-developed, Well-nourished Head / Eyes: Atraumatic, Normocephalic, PERRL ENT: Mucous membranes moist, Conjunctiva normal, No scleral icterus Neck: Supple, Non-tender, Full range of motion Respiratory: Breath sounds normal, Clear to auscultation, No respiratory distress Cardiovascular: Regular rate & rhythm, Heart sounds normal, Intact distal pulses Extremities: Vascular intact, Neuro intact, No swelling, No tenderness Neurologic: Alert, Oriented, Nonfocal Psychiatric: Mood/affect normal, Behavior normal, Normal thought content Male Genitourinary: Patient refused exam Skin: Warm, Dry Excoriations on abdomen from the pt repeatedly itching himself Interpretation & Diagnostics Lab Results Interpretation Test 02/09/17 13:00 Urine Color Bloody (YELLOW) Urine Appearance Turbid (CLEAR,HAZY) Urine pH 6.0 (5.0-8.0) Urine Specific [place] 1.030 (1.003-1.035) Urine Protein >=300mg/dL (NEG,TRACE) Urine Glucose (UA) Negativemg/dL (NEGATIVE) Urine Ketones Negativemg/dL (NEGATIVE) Urine Occult Blood Large (NEGATIVE) Urine Nitrite Negative (NEGATIVE) Urine Bilirubin Small (NEGATIVE) Urine Ictotest Negative (Negative) Urine Urobilinogen Normalmg/dL (NORMAL) Urine Leukocyte Esterase Negative (NEGATIVE) Urine RBC Packed/hpf (0-2) Urine WBC 0-5/hpf (0-5) Urine Epithelial Cells None/hpf (NONE-MOD) Urine Crystals None seen (NONE SEEN) Urine Bacteria None/hpf (NONE-FEW) Urine Hyaline Casts None/lpf (NONE) Urine Granular Casts None seen (NONE SEEN) Urine Waxy Casts None seen (NONE SEEN) Urine Red Blood Cell Casts None seen (NONE SEEN) Urine White Blood Cell Casts None seen (NONE SEEN) Urine Mucus None seen (None Seen) Urine Trichomonas None seen (NONE SEEN) Urine Yeast None (NONE SEEN) Urinalysis Comment None Urine Culture Reflexed Not indicated US Renal/Urinary Tract Exam Performed by: ED physician Exam Interpreted by: ED physician Indication: Urinary retention Findings: Bladder / Dimensions: Volume (72 ml ) Re-Eval/Medical Decision Med Decision/Clinical Course The patient's family was concerned that he may have had radiation therapy yesterday causing the hematuria. He did not have radiation therapy yesterday. The degree of blood in his urine is not entirely unexpected given the diagnosis and I see no evidence of acute blood loss but rather mild hematuria. I recommend outpatient follow-up as previously established unless the blood loss becomes more dramatic. Source of Hx: Old records Re-Evaluation/Progress : Time of Eval: 13:05 Re-Evaluation/Progress Note: Pt rechecked. Took an ultrasound of the pt's bladder. Roughly 72 ml of urine was shown to be in the bladder. Consultation : Referral / Consult Name: Joshua Garibay MD Call Returned at: 14:16 Note: Discussed pt's case w/ Dr. Garibay, a radiation oncologist. She says the pt did not receive radiation but did get chemotherapy. Some degree of hematuria is not entirely unexpected unless blood loss is a concern in of itself. Counseled Regarding: Diagnosis, Lab results, Need for follow-up, When/why to return to ED Discharge & Departure Impression: Primary Impression: Hematuria Disposition: Home Discharge Condition All VS Reviewed: Yes Condition: Stable Patient Instructions: Hematuria (ED) Additional Instructions: Thank you for coming into the emergency department today. The blood in your urine is not cause for any serious concern and I do not see any signs of infection. Please return to the emergency department if you experience any new or worsening symptoms. Return to the emergency department if you cannot urinate or if you feel that your blood loss through your urine is significant. I hope you feel better soon. Google translate Rosa por venir hoy en la vasquez de emergencias. La kimmie en la orina no es motivo de grave preocupacin y no veo ningn signo de infeccin. Por favor devuelva al servicio de urgencias si tiene cualquier sntoma nuevo o que empeora. Vuelva al departamento de emergencia si no puede orinar o si siente que orourke p rdida de kimmie a travs de orourke orina es significativa. Espero que se sienta mejor pronto. Referrals: Traci Samuel PA-C (PCP) Scribe Attestation Portions of this note were transcribed by Ivan Pittman. I, Dr. Choudhary personally performed the history, physical exam and medical decision-making; I reviewed and confirmed the accuracy of the information in the transcribed note. copies to: Traci Samuel PA-C, Kirk H MD Feb 09, 2017 12:18 Ivan Pittman Feb 09, 2017 12:49
[2017-02-09 13:49] LABS: APPEARANCE,URINE TURBID (CLEAR,HAZY); COLOR,URINE BLOODY (YELLOW); OCCULT BLOOD,URINE LARGE (NEGATIVE); UROBILINOGEN,URINE NORMAL (NORMAL)
[2017-02-09 13:50] LABS: ICTOTEST,URINE NEGATIVE (Negative)
[2017-02-09 14:36] VITALS: BP 144/69; PULSE 59; RESP 15; O2SAT 96
== END 2017-02-09 14:41 | disposition home or self-care (01) ==
LOC: SED 12:04
DX: R31.9 Hematuria, unspecified (principal); E78.5 Hyperlipidemia, unspecified; E11.9 Type 2 diabetes mellitus without complications; C67.9 Malignant neoplasm of bladder, unspecified; I25.2 Old myocardial infarction; I12.0 Hypertensive chronic kidney disease with stage 5 chronic kidney disease or end stage renal disease; N18.2 Chronic kidney disease, stage 2 (mild); J44.9 Chronic obstructive pulmonary disease, unspecified; I25.10 Atherosclerotic heart disease of native coronary artery without angina pectoris; Z95.5 Presence of coronary angioplasty implant and graft; Z87.891 Personal history of nicotine dependence; Z90.89 Acquired absence of other organs; Z90.49 Acquired absence of other specified parts of digestive tract; Z79.82 Long term (current) use of aspirin; Z79.84 Long term (current) use of oral hypoglycemic drugs

== ENCOUNTER 2017-02-19 12:01 | Inpatient (IN) | payer SELFPAY ==
[~2017-02-19] VITALS: Ht 167.6 cm; Wt 83.9 kg
[2017-02-19] VITALS (11 sets, daily range): BP systolic 154–209; BP diastolic 61–98; PULSE 66–99; RESP 18–24; O2SAT 94–98
[~2017-02-19 12:01] MED LIST changes: +Vancomycin Dose per Pharmacist XX ONE
--- NOTE | 2017-02-19 12:11 | ED.REPORT ---
HPI-Abd Pain M 40 and Over Date of Service Feb 19, 2017 ED Provider: Zach Carlos DO The pt is an 81 y/o male w/ a hx of Type 2 diabetes, HTN, bladder cancer, stage 2 kidney disease, and multiple other chronic conditions presenting to the ED complaining of abdominal pain onset 2100 last night. The pain is described as severe, diffuse, and he has not had pain like this in the past. The pt is also feeling nauseated and is unable to urinate. Denies vomiting, diarrhea, or dysuria. Nursing Notes Stated Complaint: ABDOMINAL PAIN Chief Complaint: Abdominal pain Nursing Notes Reviewed: Yes Allergies: Coded Allergies: No Known Allergies (Verified Allergy, Unknown, 02/19/17) Scheduled Amlodipine (Amlodipine) 2.5 Mg Tablet 2.5 MG PO BID Aspirin Chew (Aspirin Chew) 81 Mg Chew 81 MG PO DAILY Atorvastatin Calcium (Atorvastatin Calcium) 10 Mg Tablet 10 MG PO HS Clopidogrel (Clopidogrel) 75 Mg Tablet 75 MG PO DAILY Isosorbide MN ER (Isosorbide MN ER) 30 Mg Tab.er.24h 60 MG PO QAM Metformin (Metformin) 500 Mg Tablet 500 MG PO DAILY Metoprolol Tartrate (Metoprolol Tartrate) 25 Mg Tablet 25 MG PO BID Scheduled PRN Dextran 70/Hypromellose/Pf (Artificial Tears Drops) 1 Each Droperette 1 DROP BOTH_EYES BID PRN PRN For Eye Irritation Nitroglycerin SL (Nitrostat) 0.4 Mg Tab.subl 0.4 MG SL Q5MIN PRN PRN For Chest Pain Ondansetron (Ondansetron) 8 Mg Tablet 8 MG PO BID PRN PRN For Nausea Tramadol (Tramadol) 50 Mg Tablet 50 MG PO BID PRN PRN For Pain General Time Seen by MD: 12:10 Chief Complaint Abdominal pain Hx Obtained From: Patient Arrived By: Walk-in Sudden in Onset?: Yes Onset Occurred: 13 - 16 hours ago Recent Healthcare: No recent hospitalization, Recent doctor visit Similar Sx Previous: No Past Medical History Past Medical History Notes: Urologist Dr. Toscano Past Medical History h/o E Coli ESBL UTI 10/2015 h/o Anemia secondary to upper GI bleed with gastric antral ulcer June 2015, attributed to NSAIDS CAD w/N STEMI in June 2015, h/o cardiac stents History of aortic valve insufficiency Diabetes Type II CVA Chronic kidney disease, Stage II Hypertension Bladder CA (recurrent, high grade transitional cell) -> chemoradiation planned Pruritus Chronic Back Pain History of carotid artery stenosis, with July 2016 ultrasound revealing 70% to near occlusion of the left internal carotid, 50-60% occlusion of the right internal carotid History of CVA [facility] Reports: COPD, Coronary artery disease, Hyperlipidemia, Hypertension Past Surgical History Enucleation of right eyeball Endoscopy June 2059 Cardiac Cath 2005 Artificial eye on right side Reports: Angioplasty, Appendectomy, Cholecystectomy, Prostatectomy Smoking History Former Smoker Social History [employer] used for [employer] Alcohol Use: Denies alcohol use Drug Use: Denies drug use Other Social History: Good social support, , Local resident Ambulatory Status Independent Review of Systems GI: Reports: Abdominal pain, Nausea, Denies: Diarrhea, Vomiting Male: Reports Urination decreased, Denies Dysuria Complete sys rev & neg: except as marked. Physical Exam Initial Vital Signs Vital Signs (First) Date Time Temp Pulse Resp B/P Pulse Ox O2 Delivery O2 Flow Rate FiO2 02/19/17 12:14 35.8 85 18 209/77 98 Room Air Initial VS: Reviewed Head / Eyes: Atraumatic, Normocephalic, PERRL ENT: Mucous membranes moist, Conjunctiva normal, No scleral icterus Neck: Supple, Non-tender, Full range of motion Extremities: Vascular intact, Neuro intact, No swelling, No tenderness Skin: Warm, Dry, No cyanosis Neurologic: Alert, Oriented, Nonfocal Psychiatric: Mood/affect normal, Behavior normal, Normal thought content General/Constitutional: Awake, Alert Respiratory / Chest: Atraumatic, Breath sounds NL, Breath sounds = bilat Cardiovascular: Heart rate NL, Regular rhythm, Heart sounds NL Abdomen: Soft Diffuse abdominal pain w/ rebound and guarding Back: Atraumatic, Full range of motion Interpretation & Diagnostics Lab Results Interpretation Result Diagram: 02/19/17 1230 02/19/17 1230 Test 02/19/17 12:30 02/19/17 14:10 White Blood Count 1.8th/mm3 (3.8-10.1) Red Blood Count 3.03mil/mm3 (4.40-5.80) Hemoglobin 8.7g/dL (13.8-17.2) Hematocrit 26.3% (41.0-50.0) Mean Corpuscular Volume 86.8fL (81-100) Mean Corpuscular Hemoglobin 28.7pg (27.0-35.0) Mean Corpuscular Hemoglobin Concent 33.1% (32.0-37.0) Red Cell Distribution Width 12.8% (12.3-15.4) Platelet Count 265bil/L (150-400) Neutrophils (%) (Auto) 19.7% (40-74) Lymphocytes (%) (Auto) 25.7% (14-46) Monocytes (%) (Auto) 31.1% (4-12) Eosinophils (%) (Auto) 1.6% (0-5) Basophils (%) (Auto) 4.4% (0-3) Sodium Level 135mEq/L (134-144) Potassium Level 3.9mEq/L (3.5-5.2) Chloride Level 97mEq/L (97-108) Carbon Dioxide Level 21mmol/L (18-29) Blood Urea Nitrogen 14mg/dL (8-27) Creatinine 1.19mg/dL (0.76-1.27) Estimat Glomerular Filtration Rate 62mL/min (>59) Glucose Level 239mg/dL (60-99) Lactic Acid Level 2.3mmol/L (0.4-2.0) Calcium Level 8.7mg/dL (8.5-10.1) Magnesium Level 1.6mg/dL (1.6-2.6) Total Bilirubin 1.3mg/dL (0.0-1.2) Aspartate Amino Transf (AST/SGOT) 136U/L (0-50) Alanine Aminotransferase (ALT/SGPT) 84U/L (0-44) Alkaline Phosphatase 219U/L (25-160) Total Protein 7.7g/dL (6.4-8.4) Albumin 4.0g/dL (3.4-5.0) Lipase 5242U/L (13-60) Urine Color Straw (YELLOW) Urine Appearance Hazy (CLEAR,HAZY) Urine pH 7.0 (5.0-8.0) Urine Specific [place] 1.020 (1.003-1.035) Urine Protein 100mg/dL (NEG,TRACE) Urine Glucose (UA) 100mg/dL (NEGATIVE) Urine Ketones Negativemg/dL (NEGATIVE) Urine Occult Blood Moderate (NEGATIVE) Urine Nitrite Negative (NEGATIVE) Urine Bilirubin Negative (NEGATIVE) Urine Urobilinogen Normalmg/dL (NORMAL) Urine Leukocyte Esterase Negative (NEGATIVE) Urine RBC 11-50/hpf (0-2) Urine WBC 0-5/hpf (0-5) Urine Epithelial Cells Occasional/hpf (NONE-MOD) Urine Crystals None seen (NONE SEEN) Urine Bacteria Few/hpf (NONE-FEW) Urine Hyaline Casts None/lpf (NONE) Urine Granular Casts None seen (NONE SEEN) Urine Waxy Casts None seen (NONE SEEN) Urine Red Blood Cell Casts None seen (NONE SEEN) Urine White Blood Cell Casts None seen (NONE SEEN) Urine Mucus None seen (None Seen) Urine Trichomonas None seen (NONE SEEN) Urine Yeast None (NONE SEEN) Urinalysis Comment None Urine Culture Reflexed Not indicated ECG Interpretation ECG Interpretation: Rate 67 NSR RBBB Time: 12:35 Interpreted by: ED physician CT Abd / Pelvis Interpretation IMPRESSION: 1. Interval development of mild interstitial edematous pancreatitis, without acute peripancreatic fluid collections. 2. Multiple small dependent calcified gallstones as before. Gallbladder hydrops is also now present, which may reflect gallbladder outlet obstruction and incipient acute cholecystitis, versus a fasting state. 3. Persistent bilateral hydroureteronephrosis, probably secondary to vesicoureteral reflux. 2.9 cm right bladder diverticulum as before. 4. Ruiz colonic diverticulosis, without acute diverticulitis. 5. Small retrocardiac hiatal hernia as before. 6. Small fat containing periumbilical ventral hernia. Dictated by: Zachery Wolfe M.D. on 02/19/2017 at 14:13 Approved by: Zachery Wolfe M.D. on 02/19/2017 at 14:28 Study type: Abdom CT oral contrast Interpretation / Wet Read by: Interpret - Radiologist Re-Eval/Medical Decision Med Decision/Clinical Course Findings of pancreatitis which may either be gallstone pancreatitis or possibly cholecystitis. Patient is given broad-spectrum antibiotics given his low white blood cell count. He has been treated with multiple IV doses of labetalol and Dilaudid. Patient will be admitted. Source of Hx: Old records Time of Eval: 14:40 Re-Evaluation/Progress Note: Pt rechecked. Informed pt of need for admission. Pt understands and agrees with plan for admission. All questions addressed. Consultation #1: Referral / Consult Name: Viet Sheikh MD Consulted With: Hospitalist Call Returned at: 14:55 Eviction Specialist: Will see patient, Agrees with eval, Agrees with plan, Accepts admit Note: Spoke with pavan Nguyễn, regarding pt's case. Dr. Sheikh accepts admission. Consultation #2: Referral / Consult Name: Ravinder Hernandez Consulted With: Hospitalist Call Returned at: 15:12 Eviction Specialist: Agrees with eval, Agrees with plan Note: Spoke with pavan Elder, when it is determined that the pt will be admitted to a different floor. Dr. Hernandez recommends GI consult. Consultation #3: Referral / Consult Name: Rolf Chase MD Call Returned at: 15:16 Note: Spoke with Dr. Chase, GI, regarding pt's case. Dr. Chase agrees with the evaluation and plan for admission. Consultation #4: Referral / Consult Name: Ravinder Hernandez Consulted With: Hospitalist Call Returned at: 15:20 Eviction Specialist: Agrees with eval, Agrees with plan, Accepts admit Note: Updated Dr. Hernandez on GI consult. Dr. Hernandez agrees with the plan and accepts admission. Counseled Regarding: Diagnosis, Lab results, Need for admission Discharge & Departure Primary Impression: Pancreatitis Chronicity: acute Pancreatitis type: unspecified pancreatitis type Acute pancreatitis complication: unspecified Qualified Code: K85.90 - Acute pancreatitis without necrosis or infection, unspecified Additional Impression: Neutropenia Disposition: ADMITTED TO HOSPITAL Vital Signs - All Vital Signs Date Time Temp Pulse Resp B/P Pulse Ox O2 Delivery O2 Flow Rate FiO2 02/19/17 15:06 66 24 154/61 96 Room Air 02/19/17 15:03 67 23 200/74 94 Room Air 02/19/17 13:42 99 203/98 02/19/17 13:11 81 192/89 98 Room Air 02/19/17 12:14 35.8 85 18 209/77 98 Room Air )( All Prior VS Reviewed: Yes Condition: Stable Referrals: Traci Samuel PA-C (PCP) Ivis Lau MD (Family) Crit Care Except Billable Proc Time Spent: 30-74 minutes (35) Services Performed: Patient management by me, Time spent at bedside, Reviewing test results Critical Care Notes: See MDM Scribe Attestation Portions of this note were transcribed by Ivan Pittman. I, Dr. Carlos personally performed the history, physical exam and medical decision-making; I reviewed and confirmed the accuracy of the information in the transcribed note. Portions of this note were transcribed by Bart Barriga. I, Dr. Carlos personally performed the history, physical exam and medical decision-making; I reviewed and confirmed the accuracy of the information in the transcribed note. copies to: Traci Samuel PA-C; Ivis Lau MD, Timothy S DO Feb 19, 2017 12:11 Ivan Pittman Feb 19, 2017 12:32 BART BARRIGA Feb 19, 2017 15:16
[2017-02-19] MEDS ORDERED: 0.9% Sodium Chloride 1,000 ML IV ONE (12:22)
[2017-02-19] MEDS ORDERED: Ondansetron 2 mg/mL 2 mL Inj IVPUSH PRN ×2 (12:25→15:25)
[2017-02-19] MEDS: HYDROmorphone 0.5 mg/0.5 mL iSecure Syringe IVPUSH PRN ×3 (12:40→17:29)
[2017-02-19 12:41] LABS: BASOPHILS % (AUTO) 4.4 % (0-3); EOSINOPHILS % (AUTO) 1.6 % (0-5); MONOCYTES % (AUTO) 31.1 % (4-12); Mean Corpuscular Hemoglobin 28.7 pg (27.0-35.0); Mean Corpuscular Volume 86.8 fL (81-100); NEUTROPHILS % (AUTO) 19.7 % (40-74); Platelet Count 265 bil/L (150-400)
[2017-02-19 13:01] LABS: Magnesium 1.6 mg/dL (1.6-2.6)
[2017-02-19] MEDS ORDERED: Labetalol 5 mg/mL 20 mL Inj IVPUSH ONE ×3 (13:35→14:55)
--- NOTE | 2017-02-19 14:30 | DRSVH ---
PROCEDURE: CT ABDOMEN AND PELVIS WITH CONTRAST ([id number]) INDICATIONS: 81 year-old male with bladder carcinoma and lower abdominal pain. TECHNIQUE: After the administration of intravenous contrast, 5 mm thick sections acquired from the diaphragm to the symphysis. 5 mm coronal and sagittal reformats were acquired. For radiation dose reduction, the following was used: automated exposure control, adjustment of mA and/or kV according to patient jessica st. COMPARISON: [facility], CT, CT ABD PELVIS W CON, 01/11/2017, 14:29. FINDINGS: Image quality: Excellent. ABDOMEN: Lung bases: Lung bases are clear. Mild cardiomegaly is unchanged, as well as small retrocardiac hiat al hernia. Solid organs: Liver and spleen are normal in size and enhancement. Gallbladder contains multiple sm all calcified gallstones as before. Gallbladder lumen is prominent at 11.6 x 5.5 cm axial dimensions , without pericholecystic inflammatory fat stranding. Biliary system is non dilated. Pancreas enhanc es normally, with newly apparent peripancreatic inflammatory fat stranding around the head and body. No peripancreatic fluid collections. No adrenal nodules. Kidneys demonstrate normal size and enhanc ement, with persistent bilateral hydroureteronephrosis. Peritoneum and bowel: Bowel loops demonstrate normal wall thickness and caliber. There is pancoloni c diverticulosis. No free fluid or air. Nodes and vessels: No retroperitoneal or mesenteric adenopathy by size criteria. Aorta and inferior vena cava are normal in size, with widespread aortoiliac atherosclerosis. Miscellaneous: Tiny fat-containing periumbilical ventral hernia is again noted. PELVIS: Genitourinary: 2.9 cm right bladder diverticulum is again noted, with adjacent localized wall thicken ing around its neck. The prostate gland is normal in overall size. Miscellaneous: No inguinal hernias or adenopathy. Bones: No suspicious bony lesions. No vertebral body compression fractures. There is lower lumbar and thoracolumbar spine disc degeneration. There is grade one L4-L5 spondylolisthesis from facet join t degeneration. IMPRESSION: 1. Interval development of mild interstitial edematous pancreatitis, without acute peripancreatic flu id collections. 2. Multiple small dependent calcified gallstones as before. Gallbladder hydrops is also now present, which may reflect gallbladder outlet obstruction and incipient acute cholecystitis, versus a fasting state. 3. Persistent bilateral hydroureteronephrosis, probably secondary to vesicoureteral reflux. 2.9 cm ri ght bladder diverticulum as before. 4. Ruiz colonic diverticulosis, without acute diverticulitis. 5. Small retrocardiac hiatal hernia as before. 6. Small fat containing periumbilical ventral hernia. Dictated by: Zachery Wolfe M.D. on 02/19/2017 at 14:13 Approved by: Zachery Wolfe M.D. on 02/19/2017 at 14:28
[2017-02-19] MEDS ORDERED: Piperacillin-Tazo 3.375 Gm Inj 3.375 GM in Dextrose 5% Minibag Plus 50 ML IV ONE (14:35)
[2017-02-19 14:38] LABS: APPEARANCE,URINE HAZY (CLEAR,HAZY); COLOR,URINE STRAW (YELLOW); OCCULT BLOOD,URINE MODERATE (NEGATIVE); UROBILINOGEN,URINE NORMAL (NORMAL)
[2017-02-19] MEDS ORDERED: 0.9% Sodium Chloride 1,000 ML IV SCH (15:25)
[2017-02-19] MEDS ORDERED: Alum-Mag Hydrox-Simeth 30 mL Suspension PO PRN (15:25)
[2017-02-19] MEDS ORDERED: ONDA-54 PO (15:34)
[2017-02-19] MEDS ORDERED: ISOS30TA4 PO (15:34)
[2017-02-19] MEDS ORDERED: Vancomycin Inj 1,750 MG in 0.9% Sodium Chloride 500 ML IV ONE (15:45)
[2017-02-19] MEDS ORDERED: Polyethylene Glycol (PEG) 17 Gm Powder PO PRN (17:35)
[2017-02-19] MEDS ORDERED: Dextrose 5% 0.45% NaCl 1,000 ML IV SCH (17:40)
--- NOTE | 2017-02-19 17:44 | DRSVH ---
PROCEDURE: MR ABDOMEN MRCP INDICATIONS: upper abd pain, possible gallstone pancreatitis TECHNIQUE: Coronal HASTE through the abdomen, axial 2-D FLASH in- and [id number], and breath-hold T2 FSE with fat saturation through the biliary system and pancreas. Oblique coronal and axial thin-slice HASTE, radial thick-slab HASTE centered on the extrahepatic bile ducts. Intravenous secretin: Not requested. COMPARISON: CT from 02/19/2017. FINDINGS: Image quality: Degraded by motion. The patient terminated the study prior to completion. Pancreas and biliary system: The gallbladder is enlarged with pericholecystic fluid overall measuring at least 12.9 x 5.5 CM. There is cholelithiasis. The intra-and extrahepatic bile ducts are nondilate d where seen. Mildly prominent pancreatic duct are with no filling defects. Please note the patient t erminated the study prior to obtaining dedicated MRCP images. Other solid organs: Minimal edema about the pancreas consistent with pancreatitis. Bilateral hydrour eteronephrosis partially visualized. Otherwise the kidneys are radiographically normal. Normal spleen and liver. Adrenal glands are obscured by motion. Nodes and vessels: No retroperitoneal or mesenteric adenopathy by size criteria. Aorta and inferior vena cava are normal in size. Bowel and peritoneum: Grossly normal where seen are. Lung bases: No basal pleural effusions. Heart size is normal. Bones and soft tissues: No ventral hernias. Bone marrow is of normal overall signal. IMPRESSION: 1. Study is degraded by patient motion and was terminated by the patient prior to obtaining dedicated MRCP images. 2. Enlarged gallbladder containing cholelithiasis with pericholecystic fluid most consistent with acu te cholecystitis. 3. No intra-or extrahepatic hepatic bile duct dilatation. Grossly there is no choledocholithiasis alt levi imaging is limited by motion and lack of MRCP images. 4. Peripancreatic edema consistent with pancreatitis. Dictated by: Michael Hand M.D. on 02/19/2017 at 17:31 Approved by: Michael Hand M.D. on 02/19/2017 at 17:43
[2017-02-19] MEDS ORDERED: Dextrose 10% 250 ML IV PRN (17:45)
[2017-02-19] MEDS ORDERED: Labetalol 5 mg/mL 20 mL Inj IVPUSH PRN (17:50)
--- NOTE | 2017-02-19 18:09 | PCM.HPMED ---
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 He reports some associated chills but denies any significant nausea, vomiting, fever, or diarrhea. He denies any similar symptoms in the past. He reports ongoing urinary hesitancy but otherwise denies any dysuria. He further denies any melena or hematochezia. In the ED his workup was notable for significantly elevated Lipase and abdominal CT suggestive of acute pancreatitis and possible acute cholecystitis. MRCP was ordered in the ED and GI was consulted. Review of Systems: Constitutional: Negative, except as otherwise mentioned in the history above. Ophthalmologic: Negative, except as otherwise mentioned in the history above. Cardiovascular: Negative, except as otherwise mentioned in the history above. Respiratory: Negative, except as otherwise mentioned in the history above. Gastrointestinal: Negative, except as otherwise mentioned in the history above. Genitourinary: Negative, except as otherwise mentioned in the history above. Musculoskeletal: Negative, except as otherwise mentioned in the history above. Neurological: Negative, except as otherwise mentioned in the history above. Psychiatric: Negative, except as otherwise mentioned in the history above. Hematologic/Lymphatic: Negative, except as otherwise mentioned in the history above. Allergic/Immunologic: Negative, except as otherwise mentioned in the history above. Allergies Coded Allergies: No Known Allergies (Verified Allergy, Unknown, 02/19/17) Home Medications Scheduled Amlodipine (Amlodipine) 2.5 Mg Tablet 2.5 MG PO BID Aspirin Chew (Aspirin Chew) 81 Mg Chew 81 MG PO DAILY Atorvastatin Calcium (Atorvastatin Calcium) 10 Mg Tablet 10 MG PO HS Clopidogrel (Clopidogrel) 75 Mg Tablet 75 MG PO DAILY Isosorbide MN ER (Isosorbide MN ER) 30 Mg Tab.er.24h 60 MG PO QAM Metformin (Metformin) 500 Mg Tablet 500 MG PO DAILY Metoprolol Tartrate (Metoprolol Tartrate) 25 Mg Tablet 25 MG PO BID Scheduled PRN Dextran 70/Hypromellose/Pf (Artificial Tears Drops) 1 Each Droperette 1 DROP BOTH_EYES BID PRN PRN For Eye Irritation Nitroglycerin SL (Nitrostat) 0.4 Mg Tab.subl 0.4 MG SL Q5MIN PRN PRN For Chest Pain Ondansetron (Ondansetron) 8 Mg Tablet 8 MG PO BID PRN PRN For Nausea Tramadol (Tramadol) 50 Mg Tablet 50 MG PO BID PRN PRN For Pain Exam Vital Signs & I/O Vital Sign- Last 8 Hours Date Time Temp Pulse Resp B/P Pulse Ox O2 Delivery O2 Flow Rate FiO2 02/19/17 16:00 36.5 68 18 189/82 97 Room Air 02/19/17 15:06 66 24 154/61 96 Room Air 02/19/17 15:03 67 23 200/74 94 Room Air 02/19/17 13:42 99 203/98 02/19/17 13:11 81 192/89 98 Room Air 02/19/17 12:14 35.8 85 18 209/77 98 Room Air Lab & Micro Results Laboratory Tests Test 02/19/17 12:30 02/19/17 14:10 02/19/17 17:49 White Blood Count 1.8th/mm3 (3.8-10.1) Red Blood Count 3.03mil/mm3 (4.40-5.80) Hemoglobin 8.7g/dL (13.8-17.2) Hematocrit 26.3% (41.0-50.0) Mean Corpuscular Volume 86.8fL (81-100) Mean Corpuscular Hemoglobin 28.7pg (27.0-35.0) Mean Corpuscular Hemoglobin Concent 33.1% (32.0-37.0) Red Cell Distribution Width 12.8% (12.3-15.4) Platelet Count 265bil/L (150-400) Neutrophils (%) (Auto) 19.7% (40-74) Lymphocytes (%) (Auto) 25.7% (14-46) Monocytes (%) (Auto) 31.1% (4-12) Eosinophils (%) (Auto) 1.6% (0-5) Basophils (%) (Auto) 4.4% (0-3) Sodium Level 135mEq/L (134-144) Potassium Level 3.9mEq/L (3.5-5.2) Chloride Level 97mEq/L (97-108) Carbon Dioxide Level 21mmol/L (18-29) Blood Urea Nitrogen 14mg/dL (8-27) Creatinine 1.19mg/dL (0.76-1.27) Estimat Glomerular Filtration Rate 62mL/min (>59) Glucose Level 239mg/dL (60-99) Lactic Acid Level 2.3mmol/L (0.4-2.0) Calcium Level 8.7mg/dL (8.5-10.1) Magnesium Level 1.6mg/dL (1.6-2.6) Total Bilirubin 1.3mg/dL (0.0-1.2) Aspartate Amino Transf (AST/SGOT) 136U/L (0-50) Alanine Aminotransferase (ALT/SGPT) 84U/L (0-44) Alkaline Phosphatase 219U/L (25-160) Total Protein 7.7g/dL (6.4-8.4) Albumin 4.0g/dL (3.4-5.0) Lipase 5242U/L (13-60) Urine Color Straw (YELLOW) Urine Appearance Hazy (CLEAR,HAZY) Urine pH 7.0 (5.0-8.0) Urine Specific [place] 1.020 (1.003-1.035) Urine Protein 100mg/dL (NEG,TRACE) Urine Glucose (UA) 100mg/dL (NEGATIVE) Urine Ketones Negativemg/dL (NEGATIVE) Urine Occult Blood Moderate (NEGATIVE) Urine Nitrite Negative (NEGATIVE) Urine Bilirubin Negative (NEGATIVE) Urine Urobilinogen Normalmg/dL (NORMAL) Urine Leukocyte Esterase Negative (NEGATIVE) Urine RBC 11-50/hpf (0-2) Urine WBC 0-5/hpf (0-5) Urine Epithelial Cells Occasional/hpf (NONE-MOD) Urine Crystals None seen (NONE SEEN) Urine Bacteria Few/hpf (NONE-FEW) Urine Hyaline Casts None/lpf (NONE) Urine Granular Casts None seen (NONE SEEN) Urine Waxy Casts None seen (NONE SEEN) Urine Red Blood Cell Casts None seen (NONE SEEN) Urine White Blood Cell Casts None seen (NONE SEEN) Urine Mucus None seen (None Seen) Urine Trichomonas None seen (NONE SEEN) Urine Yeast None (NONE SEEN) Urinalysis Comment None Urine Culture Reflexed Not indicated Microbiology 02/19/17 Blood Culture, Received Pending Result Diagram: 02/19/17 1230 02/19/17 1230 PMH T3 N0 bladder cancer, status post one cycle of carboplatin/gemcitabine chemotherapy and followed by Dr. Evans Severe neutropenia post chemotherapy s/p Neupogen 480 mcg subcutaneously x 1 dose on 02/16/17 Chronic pruritic rash. Etiology is unclear. h/o E Coli ESBL UTI 10/2015 h/o Anemia secondary to upper GI bleed with gastric antral ulcer June 2015, attributed to NSAIDS CAD w/N STEMI in June 2015, h/o cardiac stents History of aortic valve insufficiency Diabetes Type II (non-Insulin dependent) CVA Chronic kidney disease, Stage II Hypertension Chronic Back Pain History of carotid artery stenosis, with July 2016 ultrasound revealing 70% to near occlusion of the left internal carotid, 50-60% occlusion of the right internal carotid Hyperlipidemia Surgical History Enucleation of right eyeball Endoscopy June 2059 Cardiac Cath 2005 Artificial eye on right side Reports: Angioplasty, Appendectomy, Cholecystectomy, Prostatectomy (TURP x2) Family History Denies any family history of heart disease. Social History Hx Alcohol Use: Yes (Drinks 1 beer per month) Hx Substance Use: No Hx Tobacco Use: Yes Smoking Status: Former Smoker (quit more than 15 years ago) Exam Vital Signs Vital Sign - Last Date Time Temp Pulse Resp B/P Pulse Ox O2 Delivery O2 Flow Rate FiO2 02/19/17 16:00 36.5 68 18 189/82 97 Room Air General: Alert, Oriented X3, Cooperative, No Acute Distress Head: Normal Eyes: PERRLA, EOMI, Scleral Anicteric Nose: Mucous Membr Moist/[place] Mouth: Mucous Membr Moist/[place] Neck: Supple Chest & Lungs: Chest Wall Normal, Clear to auscultation & percussion, Other ( port-cath noted on right upper chest wall) Cardiovascular: Regular Rate/Rhythm Pulses: NL carotid, radial, femoral, DP, PT Abdomen: Tender (diffuse but mostly mid-abd), Non-distended, Normoactive bowel tones, Soft Extremities: No cyanosis/clubbing/edma bilat Skin: Other (no significant ulcer/rash) Neurological: Grossly Neurologically Intact, Cranial Nerves 2-12 Intact, Normal Speech Additional Information: Psych: Calm, appropriate Lab and Diagnostics Result Diagram: 02/19/17 1230 02/19/17 1230 X-Rays, CTs and MRIs Date of Service: 02/19/17 1222 PROCEDURE: CT ABDOMEN AND PELVIS WITH CONTRAST ([id number]) IMPRESSION: 1. Interval development of mild interstitial edematous pancreatitis, without acute peripancreatic fluid collections. 2. Multiple small dependent calcified gallstones as before. Gallbladder hydrops is also now present, which may reflect gallbladder outlet obstruction and incipient acute cholecystitis, versus a fasting state. 3. Persistent bilateral hydroureteronephrosis, probably secondary to vesicoureteral reflux. 2.9 cm right bladder diverticulum as before. 4. Ruiz colonic diverticulosis, without acute diverticulitis. 5. Small retrocardiac hiatal hernia as before. 6. Small fat containing periumbilical ventral hernia. Dictated by: Zachery Wolfe M.D. on 02/19/2017 at 14:13 Approved by: Zachery Wolfe M.D. 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 - Possibly due to choledocholithiasis as noted on CT - NPO - Continue with supportive care including IVF, anti-emetics, and pain control with IV Morphine as needed - Per discussion with GI consult will followup repeat labs this afternoon to ensure labs remaining at least stable and rule out rapid dehydration or third spacing # Acute cholecystitis, present on admission. - Followup pending MRCP ordered in ED - Per discussion with GI consult, if evidence of CBD stone GI will move forward with ERCP if negative will consult surgery - Continue with empiric IV Zosyn started in ED on 02/19/17 - Continue with supportive care as noted above # Acute hypertensive urgency, present on admission - Likely exacerbation of underlying history of hypertension from acute abdominal pain noted above - Continue with supportive care and pain control noted above - Continue with home BP Meds - If SBP continue to remain greater than 180 despite adequate pain control will cover with IV Labetalol as needed # Acute mild lactic acid elevation, present on admission - Followup to ensure resolution after adequate hydration # History of coronary artery disease, presumed stable - Continue with home BP meds - Continue with home dose ASA - Hold home dose Plavix at least for now in case of needing more urgent or emergent surgery - Hold Statin for now given elevated LFTs # T3 N0 bladder cancer, present on admission. - Will defer further followup and management to oncology as outpatient for now. # Recent severe neutropenia post chemotherapy s/p Neupogen 480 mcg subcutaneously x 1 dose on 02/16/17 - Currently improved and only mild leukopenia and anemia persisting - Followup closely as these improved values may be due to hemoconcentration # Chronic pruritic rash. Etiology is unclear. - Currently denies any significant pruritus and no rash noted on exam # History of diabetes - Hold home Metformin - Cover with ISS for now - HgA1C Expected length of hospital stay is greater than 2 midnights and likely 3-4 days GI Prophylaxis: Proton Pump Inhibitor VTE Prophylaxis: Sub-Q Heparin (Unfractionated) Resuscitation Status: CPR: Attempt Resuscitation (discussed and verified with patient) Time spent 65 min Ravinder Hernandez Feb 19, 2017 18:09
[2017-02-19] MEDS: Dextrose 5% 0.9% NaCl 1,000 ML IV SCH (18:34)
[2017-02-19 18:47] LABS: Mean Corpuscular Hemoglobin 28.8 pg (27.0-35.0); Mean Corpuscular Volume 87.3 fL (81-100)
[2017-02-19 19:09] LABS: Magnesium 1.7 mg/dL (1.6-2.6)
[2017-02-19] MEDS ORDERED: Insulin Human REGular 300 Unit/3 mL Inj SUBQ SCH (22:00)
[2017-02-19] MEDS: Insulin LISPRO Low-Dose Scale SUBQ SCH (22:00)
[2017-02-19] MEDS: Piperacillin-Tazo 3.375 Gm Inj 3.375 GM in Dextrose 5% Minibag Plus 50 ML IV SCH (22:24)
[2017-02-19] MEDS: Ondansetron 2 mg/mL 2 mL Inj IVPUSH PRN (23:36)
[2017-02-20] VITALS (11 sets, daily range): BP systolic 137–190; BP diastolic 69–85; PULSE 67–96; RESP 16–20; O2SAT 93–95
[2017-02-20] MEDS: Heparin 5,000 Unit/mL Inj SUBQ SCH ×4 (00:22→23:56)
[2017-02-20 03:28] LABS: Mean Corpuscular Hemoglobin 29.2 pg (27.0-35.0); Mean Corpuscular Volume 87.5 fL (81-100); Platelet Count 311 bil/L (150-400)
[2017-02-20 03:51] LABS: BASOPHILS % (AUTO) 0 % (0-3); EOSINOPHILS % (AUTO) 0 % (0-5); MONOCYTES % (AUTO) 28 % (4-12); NEUTROPHILS % (AUTO) 35 % (40-74)
[2017-02-20 03:59] LABS: Magnesium 1.7 mg/dL (1.6-2.6)
[2017-02-20] MEDS ORDERED: 0.9% Sodium Chloride 500 ML IV ONE (04:25)
[2017-02-20] MEDS: Dextrose 5% 0.9% NaCl 1,000 ML IV SCH ×3 (05:15→23:55)
[2017-02-20] MEDS: Piperacillin-Tazo 3.375 Gm Inj 3.375 GM in Dextrose 5% Minibag Plus 50 ML IV SCH ×3 (06:36→22:58)
[2017-02-20] MEDS: Insulin LISPRO Low-Dose Scale SUBQ SCH ×4 (08:00→22:00)
[2017-02-20] MEDS: Pantoprazole 4 mg/mL 10 mL Inj IVPUSH SCH ×2 (08:13→16:48)
[2017-02-20] MEDS: Artificial Tears 15 mL Ophthalmic Solution BOTH_EYES PRN (08:17)
[2017-02-20] MEDS: Isosorbide Mononitrate 30 mg ER24 Tablet PO SCH (08:20)
--- NOTE | 2017-02-20 12:19 | PCM.CONSUR ---
Subjective Date of Service: Feb 20, 2017 History of Present Illness 81-year-old male with complicated past medical history including coronary artery disease, aortic valve insufficiency, type 2 diabetes, previous CVA, chronic kidney disease stage II, hypertension, carotid stenosis, hyperlipidemia, and recently diagnosed bladder carcinoma status post 1 cycle of chemotherapy initiated by Dr. Evans presents to the emergency department with midline abdominal pain. Patient states that overnight on 02/18 he experienced an episode of increased midline abdominal pain which and woke him up from sleep. Over the last 2-3 days the patient reports increased nausea, especially after eating however does not endorse pain associated with eating. Since the episode experienced on the night of 02/18 patient continues to have baseline pain 5/10 described as sharp, which starts midline and radiates to the left lower quadrant and at times to the back. He does not know anything that alleviates the pain, or makes his pain worse. He also reports pain to palpation of the right upper quadrant, but no pain outside of direct palpation. He states that he has had symptoms similar to this before but not of this gravity. In the emergency department the patient was found to have leukocytosis, anemia, neutropenia, hyperglycemia, lactic acidosis, with caicedo elevation in liver enzymes : total bilirubin 1.3, AST 136, PLT 84, alkaline phosphatase 219, lipase 5242. An abdominal CT was obtained which showed pancreatitis with acute peripancreatic fluid collections, multiple small calcified gallstones, possibly enlarged gallbladder. An MRCP was also obtained, but represents a poor study given patient movement. Study shows possible pericholecystic fluid with cholelithiasis, no evidence of bile duct dilatation, no choledocholithiasis appreciated, pancreatitis. Since admission patient has been managed with fluids, Zosyn, and other supportive care measures. Lipase appears to be trending down significantly at this time, with stable elevation in liver enzymes as compared to previous inpatient visits. Patient continues to endorse midline abdominal pain with radiation to the left lower quadrant worse with palpation, as well as right upper quadrant pain, worse with palpation. Reason for Consultation Acute pancreatitis, present on admission Acute cholecystitis, present on admission Allergy Allergies: Coded Allergies: No Known Allergies (Verified Allergy, Unknown, 02/19/17) Medications Blood Thinners: Aspirin, Plavix (discontinued during this visit) Last Dose Blood Thinner: Feb 20, 2017 Hypertension Medication: Yes Home Meds Incl Beta Blockers: Yes Amlodipine (Amlodipine) 2.5 Mg Tablet 2.5 MG PO BID (Reported) Last Taken: Unknown Dose on 02/19/17 Aspirin Chew (Aspirin Chew) 81 Mg Chew 81 MG PO DAILY Prescribed by: ANASTASIA JOHNSON MD Last Taken: Unknown Dose on 02/19/17 Atorvastatin Calcium (Atorvastatin Calcium) 10 Mg Tablet 10 MG PO HS Prescribed by: EMILIE DAVILA DO Last Taken: Unknown Dose on 02/18/17 Clopidogrel (Clopidogrel) 75 Mg Tablet 75 MG PO DAILY (Reported) Last Taken: Unknown Dose on 02/19/17 Dextran 70/Hypromellose/Pf (Artificial Tears Drops) 1 Each Droperette 1 DROP BOTH_EYES BID PRN PRN For Eye Irritation ( Reported) Last Taken: Unknown Dose on Unknown Date & Time Isosorbide MN ER ( Isosorbide MN ER) 30 Mg Tab.er.24h 60 MG PO QAM (Reported) Last Taken: Unknown Dose on 02/19/17 Metformin (Metformin) 500 Mg Tablet 500 MG PO DAILY (Reported) Last Taken: Unknown Dose on 02/19/17 Metoprolol Tartrate (Metoprolol Tartrate) 25 Mg Tablet 25 MG PO BID (Reported) Last Taken: Unknown Dose on 02/19/17 Nitroglycerin SL (Nitrostat) 0.4 Mg Tab.subl 0.4 MG SL Q5MIN PRN PRN For Chest Pain (Reported) Last Taken: Unknown Dose on Unknown Date & Time Ondansetron (Ondansetron) 8 Mg Tablet 8 MG PO BID PRN PRN For Nausea (Reported) Last Taken: Unknown Dose on Unknown Date & Time Tramadol (Tramadol) 50 Mg Tablet 50 MG PO BID PRN PRN For Pain (Reported) Last Taken: Unknown Dose on Unknown Date & Time Discontinued Medications Isosorbide MN ER (Isosorbide MN ER) 60 Mg Tab.er.24h 60 MG PO DAILY (Reported) Phenazopyridine (Azo Urinary Pain Relief) 97.5 Mg Tablet 2 EACH PO TID PRN PRN urinary burning (Reported) Past Surgical History Surgeries: Yes (appy, TURPx2, r.eyeball enucleation, kira) Patient/Family Past Surgical: Positive for:: Accept Blood Products?, Denies:: Anesthesia Reactions, Blood Transfuse Reaction, Blood Transfusions, Malignant Hyperthermia Social History Hx Alcohol Use: Yes (Drinks 1 beer per month) Hx Substance Use: No Hx Tobacco Use: Yes PMH HEENT History History of ENT Problems?: Yes HEENT History: Positive for:: Cataracts Denies:: Abnormal Airway Difficult Intubation Dysphagia Sinus Problem Cardiovascular History History of Heart Problems?: Yes Cardiovascular History: Positive for:: Chest Pain Congestive Heart Failure (family says yes) Hypertension Valvular Heart Disease (echo 01/2017) Denies:: Cardiac Surgery (stents) Edema Heart Murmur Irregular Heartbeat Pacemaker Respiratory History of Respiratory Problem: Yes Respiratory History: Positive for:: Dyspnea Pneumonia ( past hx of) Denies:: COPD Chest Surgery Emphysema Oxygen Administration Tuberculosis Use of C-PAP Machine Neurological History Hx Neurologic Problems?: Yes Neurological History: Positive for:: Dizziness (this admit) Denies:: Alzheimer's Disease CVA (no residual) Dementia Headaches Multiple Sclerosis Parkinson's Disease Seizures Other Neurological History: pt and family poor hisotrian Gastrointestinal History HX of GI Problems?: Yes Gastrointestinal History: Positive for:: Gastrointestinal Bleeding (hx of 2015) Heartburn Rectal Bleeding (hemorrhoids) Denies:: Diverticulitis Gastroesphageal Reflux Hepatitis Other GI Pertinent History: pt and family poor historian Genitourinary History Hx of Gu Problems?: Yes Genitourinary History: Positive for: Kidney Stones Denies: Urinary Tract Infection Female/Male History Reproductive History Male: Positive for: Prostate Problems (TURP x 2) Denies: Scrotal Mass Skin History Skin History: Positive for:: History Skin Disorders? (pruritis) Denies:: Pressure Ulcers Musculoskeletal History Hx Musculoskeletal Problems?: Yes Musculoskeletal History: Positive for:: Back Injury (chronic back pain) Denies:: Joint Replacement Musculoskeletal Trauma Psycho Social History Hx of Psycho/Social Problems?: Yes Psycho Social History: Positive for:: Hx Depression Denies:: Anxiety Bipolar Disorder Other History Hx Any Other Health Problems?: Yes Other History: Positive for:: Cancer (bladder ca) Hospitalization (06/2015 PNEUMONIA) Denies:: Endocrine Disease Thyroid Disease Diabetes: YesBedside Blood Glucose: 127 Social History Hx Alcohol Use: Yes (Drinks 1 beer per month)Hx Substance Use: NoHx Tobacco Use: Yes Smoking Status: Former Smoker Objective Exam Objective General: No acute distress, well-developed, well-nourished Head: Normocephalic, atraumatic. External ears without defect. Eyes: Pupils equal, round, and reactive to light and accommodation. Anicteric sclerae, moist conjunctivae. Neck: Normal range of motion, no lymphadenopathy noted Cardiovascular: Regular rate and rhythm with no murmurs, rubs, or gallops appreciated Pulmonary: Clear to auscultation bilaterally with no crackles, wheezes, or rhonchi. Normal respiratory effort with no use of accessory muscles. Poor catheter in place Abdomen: Bowel tones present. Soft, nondistended. Tender to palpation of the mid to lower abdomen especially of the left lower quadrant. Right upper quadrant tenderness, Garcia's sign positive. Extremities: No clubbing, cyanosis, edema Skin: Normal temperature, turgor, and texture; no rash, ulcers, or subcutaneous nodules appreciated. Neurological: Cranial nerves grossly intact. Reflexes, coordination, and sensory function within normal limits. Normal muscle strength, tone, and bulk. Psychiatric: Normal mood and affect. Alert and oriented to person, place, and time Vital Signs & I/O Vital Sign- Last 8 Hours Date Time Temp Pulse Resp B/P Pulse Ox O2 Delivery O2 Flow Rate FiO2 02/20/17 11:46 36.7 67 18 156/72 95 Room Air 02/20/17 10:37 80 02/20/17 09:33 37.2 77 16 164/70 94 Room Air 02/20/17 05:45 80 166/74 02/20/17 05:04 37.0 189/76 02/20/17 04:01 38.0 80 20 190/80 94 Room Air Intake and Output- Last 8 Hour 02/20/17 Cumulative From/Thru 07:00 02/19/17 12:14 - 02/20/17 06:16 Intake Total 1875 ml 4062 ml Output Total 500 ml 725 ml Balance 1375 ml 3337 ml Intake Oral 400 ml 400 ml IV Total 1475 ml 3662 ml Output Urine Total 500 ml 725 ml # Voids 3 3 Lab & Micro Results Laboratory Tests Test 02/19/17 12:30 02/19/17 14:10 02/19/17 17:49 02/19/17 18:44 White Blood Count 1.8th/mm3 (3.8-10.1) 2.2th/mm3 (3.8-10.1) Red Blood Count 3.03mil/mm3 (4.40-5.80) 3.06mil/mm3 (4.40-5.80) Hemoglobin 8.7g/dL (13.8-17.2) 8.8g/dL (13.8-17.2) Hematocrit 26.3% (41.0-50.0) 26.7% (41.0-50.0) Mean Corpuscular Volume 86.8fL (81-100) 87.3fL (81-100) Mean Corpuscular Hemoglobin 28.7pg (27.0-35.0) 28.8pg (27.0-35.0) Mean Corpuscular Hemoglobin Concent 33.1% (32.0-37.0) 33.0% (32.0-37.0) Red Cell Distribution Width 12.8% (12.3-15.4) 12.9% (12.3-15.4) Platelet Count 265bil/L (150-400) 298bil/L (150-400) Neutrophils (%) (Auto) 19.7% (40-74) Lymphocytes (%) (Auto) 25.7% (14-46) Monocytes (%) (Auto) 31.1% (4-12) Eosinophils (%) (Auto) 1.6% (0-5) Basophils (%) (Auto) 4.4% (0-3) Sodium Level 135mEq/L (134-144) 137mEq/L (134-144) Potassium Level 3.9mEq/L (3.5-5.2) 4.2mEq/L (3.5-5.2) Chloride Level 97mEq/L (97-108) 98mEq/L (97-108) Carbon Dioxide Level 21mmol/L (18-29) 22mmol/L (18-29) Blood Urea Nitrogen 14mg/dL (8-27) 13mg/dL (8-27) Creatinine 1.19mg/dL (0.76-1.27) 1.03mg/dL (0.76-1.27) Estimat Glomerular Filtration Rate 62mL/min (>59) 73mL/min (>59) Glucose Level 239mg/dL (60-99) 169mg/dL (60-99) Lactic Acid Level 2.3mmol/L (0.4-2.0) 2.3mmol/L (0.4-2.0) Calcium Level 8.7mg/dL (8.5-10.1) 8.4mg/dL (8.5-10.1) Magnesium Level 1.6mg/dL (1.6-2.6) 1.7mg/dL (1.6-2.6) Total Bilirubin 1.3mg/dL (0.0-1.2) 1.9mg/dL (0.0-1.2) Aspartate Amino Transf (AST/SGOT) 136U/L (0-50) 190U/L (0-50) Alanine Aminotransferase (ALT/SGPT) 84U/L (0-44) 127U/L (0-44) Alkaline Phosphatase 219U/L (25-160) 244U/L (25-160) Total Protein 7.7g/dL (6.4-8.4) 7.3g/dL (6.4-8.4) Albumin 4.0g/dL (3.4-5.0) 3.9g/dL (3.4-5.0) Lipase 5242U/L (13-60) 4791U/L (13-60) Urine Color Straw (YELLOW) Urine Appearance Hazy (CLEAR,HAZY) Urine pH 7.0 (5.0-8.0) Urine Specific [place] 1.020 (1.003-1.035) Urine Protein 100mg/dL (NEG,TRACE) Urine Glucose (UA) 100mg/dL (NEGATIVE) Urine Ketones Negativemg/dL (NEGATIVE) Urine Occult Blood Moderate (NEGATIVE) Urine Nitrite Negative (NEGATIVE) Urine Bilirubin Negative (NEGATIVE) Urine Urobilinogen Normalmg/dL (NORMAL) Urine Leukocyte Esterase Negative (NEGATIVE) Urine RBC 11-50/hpf (0-2) Urine WBC 0-5/hpf (0-5) Urine Epithelial Cells Occasional/hpf (NONE-MOD) Urine Crystals None seen (NONE SEEN) Urine Bacteria Few/hpf (NONE-FEW) Urine Hyaline Casts None/lpf (NONE) Urine Granular Casts None seen (NONE SEEN) Urine Waxy Casts None seen (NONE SEEN) Urine Red Blood Cell Casts None seen (NONE SEEN) Urine White Blood Cell Casts None seen (NONE SEEN) Urine Mucus None seen (None Seen) Urine Trichomonas None seen (NONE SEEN) Urine Yeast None (NONE SEEN) Urinalysis Comment None Urine Culture Reflexed Not indicated Hemoglobin A1c 6.8% (4.8-5.6) Test 02/20/17 03:17 02/20/17 06:00 White Blood Count 2.2th/mm3 (3.8-10.1) Red Blood Count 3.12mil/mm3 (4.40-5.80) Hemoglobin 9.1g/dL (13.8-17.2) Hematocrit 27.3% (41.0-50.0) Mean Corpuscular Volume 87.5fL (81-100) Mean Corpuscular Hemoglobin 29.2pg (27.0-35.0) Mean Corpuscular Hemoglobin Concent 33.3% (32.0-37.0) Red Cell Distribution Width 13.0% (12.3-15.4) Platelet Count 311bil/L (150-400) Neutrophils (%) (Auto) 35% (40-74) Lymphocytes (%) (Auto) 30% (14-46) Monocytes (%) (Auto) 28% (4-12) Eosinophils (%) (Auto) 0% (0-5) Basophils (%) (Auto) 0% (0-3) Band Neutrophils % 5% (1-5) Metamyelocytes % 2% (0-0) Prothrombin Time 10.7sec (8.1-12.5) Prothromb Time International Ratio 1.00ratio Activated Partial Thromboplast Time 30.8sec (22.8-33.0) Sodium Level 140mEq/L (134-144) Potassium Level 3.9mEq/L (3.5-5.2) Chloride Level 100mEq/L (97-108) Carbon Dioxide Level 22mmol/L (18-29) Blood Urea Nitrogen 12mg/dL (8-27) Creatinine 1.10mg/dL (0.76-1.27) Estimat Glomerular Filtration Rate 68mL/min (>59) Glucose Level 148mg/dL (60-99) Lactic Acid Level 3.0mmol/L (0.4-2.0) 1.3mmol/L (0.4-2.0) Calcium Level 8.3mg/dL (8.5-10.1) Magnesium Level 1.7mg/dL (1.6-2.6) Total Bilirubin 2.3mg/dL (0.0-1.2) Aspartate Amino Transf (AST/SGOT) 233U/L (0-50) Alanine Aminotransferase (ALT/SGPT) 175U/L (0-44) Alkaline Phosphatase 291U/L (25-160) Total Protein 6.8g/dL (6.4-8.4) Albumin 3.9g/dL (3.4-5.0) Lipase 1818U/L (13-60) Microbiology 02/19/17 Blood Culture, Received Pending Result Diagram: 02/20/1731602/20/17316 Review of Systems: Constitutional: Negative, except as otherwise mentioned in the history above. Ophthalmologic: Negative, except as otherwise mentioned in the history above. Cardiovascular: Negative, except as otherwise mentioned in the history above. Respiratory: Negative, except as otherwise mentioned in the history above. Gastrointestinal: Negative, except as otherwise mentioned in the history above. Genitourinary: Negative, except as otherwise mentioned in the history above. Musculoskeletal: Negative, except as otherwise mentioned in the history above. Neurological: Negative, except as otherwise mentioned in the history above. Psychiatric: Negative, except as otherwise mentioned in the history above. Hematologic/Lymphatic: Negative, except as otherwise mentioned in the history above. Allergic/Immunologic: Negative, except as otherwise mentioned in the history above. H&P Surgical Exam Exam General: Alert, Oriented X3, Cooperative, No Acute Distress Assessment & Plan Assessment Gallstone Pancreatitis, less likely to have acute cholecystitis simultaneously, though possible VTE Prophylaxis: Sub-Q Heparin (Unfractionated) Plan: HIDA scan Hold Plavix - D/W Cardiology about ongoing need for it Repeat Echocardiogram D/W Dr. Evans regarding leukopenia & considering additional G-CSF Continue Abx NPO Except sips of clears If patient proves to have cholecystitis, will plan operation as the leukopenia improves and 4-5 days of time off plavix Will Continue to follow Resuscitation Status: CPR: Attempt Resuscitation (discussed and verified with patient) Bola James DO Feb 20, 2017 12:18 Hector Shelley MD Feb 20, 2017 16:23 In the event of serious complications over the next 24-48 hours we will be glad to reassess the situation at that time. Patient should remain NPO Pancreatitis, present on admission, active Obvious pancreatitis visualized on CT imaging Likely secondary to choledocholithiasis, however with no evidence of stones indicated on imaging Lipase currently trending well GI team consulted, suggesting possible ERCP, this appears to be appropriate at this time Continue medical management VTE Prophylaxis: Sub-Q Heparin (Unfractionated) Resuscitation Status: CPR: Attempt Resuscitation (discussed and verified with patient) Bola James DO Feb 20, 2017 12:18
[2017-02-20] MEDS ORDERED: HepLOK Flush 100 unit/mL 5 mL Inj IVFLUSH PRN (15:35)
[2017-02-20] MEDS: 0.9% Sodium Chloride 250 ML IV SCH (15:35)
[2017-02-20] MEDS ORDERED: Sodium Chloride LOK Flush 10 mL Syringe IVFLUSH PRN ×2 (15:35)
--- NOTE | 2017-02-20 16:22 | PCM.PNMED ---
Subjective Date of Service Feb 20, 2017 Subjective The patient continues to complain of epigastric abdominal pain and LLQ pain that is worse with motion. He denies nausea, vomiting, or diarrhea. He states that he would like for his gallbladder to be removed as it has been giving him trouble for some time now. He states that he is otherwise well and has no focal complaints at this time. No significant overnight events. Exam Vital Signs Vital Sign - Last Date Time Temp Pulse Resp B/P Pulse Ox O2 Delivery O2 Flow Rate FiO2 02/20/17 16:06 38.5 78 20 168/77 93 Room Air Intake and Output 02/19/17 02/19/17 02/20/17 Cumulative From/Thru 15:00 23:00 07:00 02/19/17 12:14 - 02/20/17 06:16 Intake Total 1000 ml 1207 ml 1875 ml 4082 ml Output Total 225 ml 500 ml 725 ml Balance 1000 ml 982 ml 1375 ml 3357 ml Intake Oral 0 ml 400 ml 400 ml IV Total 1000 ml 1207 ml 1475 ml 3682 ml Output Urine Total 225 ml 500 ml 725 ml Bladder Scan Volume Amount 0.0 # Voids 3 3 Exam Gen: A/O x3 pleasant cooperative elderly gentleman in NAD Neck: Supple, non tender, no thyromegaly HEENT: PERRL, EOMI, no scleral icterus, no conjunctival pallor. CV: RRR, no murmurs rubs or gallops Resp: Diffuse mild expiratory wheezing, no rales or rhonchi Abd: Diffusely tender to palpation, most focused in epigastric region, RUQ, and LLQ; positive Garcia sign Extr: Good muscle tone for age, no clubbing cyanosis or edema. Neuro: CN 2-12, no focal neurologic deficit Psych: Pleasant and appropriate mood and affect. . IVs and Medications Medications Reviewed: Medications were reviewed in detail Lab and Diagnostics Item Value Date Time Red Blood Count 3.12 mil/mm3 L 02/20/17316 Mean Corpuscular Volume 87.5 fL 02/20/17316 Mean Corpuscular Hemoglobin 29.2 pg 02/20/17316 Mean Corpuscular Hemoglobin Concent 33.3 % 02/20/17316 Red Cell Distribution Width 13.0 % 02/20/17316 Neutrophils (%) (Auto) 35 % L 02/20/17 031 Lymphocytes (%) (Auto) 30 % 02/20/17 031 Monocytes (%) (Auto) 28 % H 02/20/17 031 Eosinophils (%) (Auto) 0 % 02/20/17 031 Basophils (%) (Auto) 0 % 02/20/17316 Band Neutrophils % 5 % 02/20/17316 Metamyelocytes % 2 % H 02/20/17316 Estimat Glomerular Filtration Rate 68 mL/min 02/20/17316 Lactic Acid Level 3.0 mmol/L H 02/20/17316 Calcium Level 8.3 mg/dL L 02/20/17316 Magnesium Level 1.7 mg/dL 02/20/17316 Total Bilirubin 2.3 mg/dL H 02/20/17316 Aspartate Amino Transf (AST/SGOT) 233 U/L H 02/20/17316 Alanine Aminotransferase (ALT/SGPT) 175 U/L H 02/20/17316 Alkaline Phosphatase 291 U/L H 02/20/17316 Total Protein 6.8 g/dL 02/20/17316 Albumin 3.9 g/dL 02/20/17316 Lipase 1818 U/L H 02/20/17316 Result Diagram: 02/20/1731602/20/17316 Microbiology Blood cultures pending X-Rays, CTs and MRIs Date of Service: 02/19/17 1222 PROCEDURE: CT ABDOMEN AND PELVIS WITH CONTRAST ([id number]) IMPRESSION: 1. Interval development of mild interstitial edematous pancreatitis, without acute peripancreatic fluid collections. 2. Multiple small dependent calcified gallstones as before. Gallbladder hydrops is also now present, which may reflect gallbladder outlet obstruction and incipient acute cholecystitis, versus a fasting state. 3. Persistent bilateral hydroureteronephrosis, probably secondary to vesicoureteral reflux. 2.9 cm right bladder diverticulum as before. 4. Ruiz colonic diverticulosis, without acute diverticulitis. 5. Small retrocardiac hiatal hernia as before. 6. Small fat containing periumbilical ventral hernia. Dictated by: Zachery Wolfe M.D. on 02/19/2017 at 14:13 Approved by: Zachery Wolfe M.D. on 02/19/2017 at 14:28 MR ABDOMEN MRCP IMPRESSION: 1. Study is degraded by patient motion and was terminated by the patient prior to obtaining dedicated MRCP images. 2. Enlarged gallbladder containing cholelithiasis with pericholecystic fluid most consistent with acute cholecystitis. 3. No intra-or extrahepatic hepatic bile duct dilatation. Grossly there is no choledocholithiasis although imaging is limited by motion and lack of MRCP images. 4. Peripancreatic edema consistent with pancreatitis. Dictated by: Michael Hand M.D. on 02/19/2017 at 17:31 Approved by: Michael Hand M.D. on 02/19/2017 at 17:43 . 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 - MRCP not indicative of choledocholithiasis - NPO per GI recommendations - Continue with supportive care including IVF, anti-emetics, and pain control with IV Morphine as needed - Per discussion with general surgery, surgical intervention will be postponed until the acute phase of pancreatitis has passed. Acute cholecystitis, present on admission. - MRCP with results as above - Will proceed with HIDA scan to further delineate gallbladder process - Continue with empiric IV Zosyn started in ED on 02/19/17 - Continue with supportive care as noted above Acute hypertensive urgency, present on admission - Likely exacerbation of underlying history of hypertension from acute abdominal pain noted above - Continue with supportive care and pain control noted above - Continue with home BP Meds - If SBP continue to remain greater than 180 despite adequate pain control will cover with IV Labetalol as needed Acute mild lactic acid elevation, present on admission - trended back to normal History of coronary artery disease, presumed stable - Continue with home BP meds - Continue with home dose ASA - Hold home dose Plavix at least for now in case of needing more urgent or emergent surgery - Hold Statin for now given elevated LFTs T3 N0 bladder cancer, present on admission. - Will defer further followup and management to oncology as outpatient for now. - Dr Evans has been made aware of the patient's admission and will be available for consult if required. Recent severe neutropenia post chemotherapy s/p Neupogen 480 mcg subcutaneously x 1 dose on 02/16/17 - Currently improved and only mild leukopenia and anemia persisting - Followup closely as these improved values may be due to hemoconcentration Chronic pruritic rash. Etiology is unclear. - Currently denies any significant pruritus and no rash noted on exam History of diabetes - Hold home Metformin - Cover with ISS for now - HgA1C Disposition: Cannot accurately predict anticipated length of stay, will likely be 2-3 days until pancreas has sufficiently calmed to proceed with surgery, at which time his age and co-morbid conditions may complicate the recovery process. Anticipate at least 5 more days of hospitalization. Pain Evaluation: Adequate Pain Control GI Prophylaxis: Proton Pump Inhibitor VTE Prophylaxis: Sub-Q Heparin (Unfractionated) Resuscitation Status: CPR: Attempt Resuscitation (discussed and verified with patient) Attending Statement The patient was seen and examined together with Dr. Watson on 02/20/17 and I agree with the history, exam and plan as outlined in the note above. Robbie Watson DO Feb 20, 2017 16:22 Ravinder Hernandez Feb 21, 2017 14:46
--- NOTE | 2017-02-20 16:41 | DRSVH ---
PROCEDURE: NM HIDA SCAN WITHOUT CCK RADIOPHARMACEUTICAL: 5.5 mCi Tc-99m mebrofenin IV. INDICATIONS: POSSIBLE BILIARY OBSTRUCTION/ACUTE PANCREATITIS. TECHNIQUE: Following intravenous administration of Tc-99m mebrofenin, sequential anterior abdominal images were obtained through at least 60 minutes. COMPARISON: None. FINDINGS: There is normal tracer uptake and excretion by the liver. There is normal visualization o f intrahepatic ducts and common bile duct. There is non-filling of the gallbladder through 120 minute s. There is normal tracer excretion into duodenum. There is reflux of bile into the stomach. IMPRESSION: 1. Nonfilling of gallbladder consistent with cystic duct obstruction. This finding is highly compatib le with acute cholecystitis. 2. Patent common bile duct. No evidence for biliary obstruction. 3. Reflux of bile into the stomach. Dictated by: Anastacio Bales M.D. on 02/20/2017 at 16:36 Approved by: Anastacio Bales M.D. on 02/20/2017 at 16:39
--- NOTE | 2017-02-20 16:49 | PCM.PNMED ---
Subjective Date of Service Feb 20, 2017 Subjective H and P dictated yesterday after patient seen. but not in EMR i have redictated Hand P again today From yesterday pain has improved and he states it is "poquito" denies nausea or vomiting states he is hungry Exam Vital Signs Vital Sign - Last Date Time Temp Pulse Resp B/P Pulse Ox O2 Delivery O2 Flow Rate FiO2 02/20/17 16:06 38.5 78 20 168/77 93 Room Air Intake and Output 02/19/17 02/19/17 02/20/17 Cumulative From/Thru 15:00 23:00 07:00 02/19/17 12:14 - 02/20/17 06:16 Intake Total 1000 ml 1207 ml 1875 ml 4082 ml Output Total 225 ml 500 ml 725 ml Balance 1000 ml 982 ml 1375 ml 3357 ml Intake Oral 0 ml 400 ml 400 ml IV Total 1000 ml 1207 ml 1475 ml 3682 ml Output Urine Total 225 ml 500 ml 725 ml Bladder Scan Volume Amount 0.0 # Voids 3 3 Exam Gen- in no apparent distress, he was eating elida crackers when i went into the room HEENT- no pallor, no icterus RESP- clear bilaterally CVS-RRR Abdomen- soft, non distended, diffuse tenderness improved from yesterday Lab and Diagnostics Result Diagram: 02/20/1731602/20/17316 Microbiology Blood cultures pending X-Rays, CTs and MRIs Date of Service: 02/19/17 1222 PROCEDURE: CT ABDOMEN AND PELVIS WITH CONTRAST ([id number]) IMPRESSION: 1. Interval development of mild interstitial edematous pancreatitis, without acute peripancreatic fluid collections. 2. Multiple small dependent calcified gallstones as before. Gallbladder hydrops is also now present, which may reflect gallbladder outlet obstruction and incipient acute cholecystitis, versus a fasting state. 3. Persistent bilateral hydroureteronephrosis, probably secondary to vesicoureteral reflux. 2.9 cm right bladder diverticulum as before. 4. Ruiz colonic diverticulosis, without acute diverticulitis. 5. Small retrocardiac hiatal hernia as before. 6. Small fat containing periumbilical ventral hernia. Dictated by: Zachery Wolfe M.D. on 02/19/2017 at 14:13 Approved by: Zachery Wolfe M.D. on 02/19/2017 at 14:28 MR ABDOMEN MRCP IMPRESSION: 1. Study is degraded by patient motion and was terminated by the patient prior to obtaining dedicated MRCP images. 2. Enlarged gallbladder containing cholelithiasis with pericholecystic fluid most consistent with acute cholecystitis. 3. No intra-or extrahepatic hepatic bile duct dilatation. Grossly there is no choledocholithiasis although imaging is limited by motion and lack of MRCP images. 4. Peripancreatic edema consistent with pancreatitis. Dictated by: Michael Hand M.D. on 02/19/2017 at 17:31 Approved by: Michael Hand M.D. on 02/19/2017 at 17:43 . Assessment & Plan Acute gallstone pancreatitis -imaging without biliary dilation or findings of choledocholithiasis -LFT's up today -pain is improved -per primary team patient seen by surgery but recommended until pancreatitis improves before cholecystectomy -continue to follow LFT's, may need to consider ERCP if LFT's continue to rise -HIDA scan ordered by primary team, will await results - I am not here tomorrow, Dr Robbie Solorzano will be covering the GI service tomorrow and Saturday, followed by Dr Alonzo on Saturday. I will return Saturday. GI Prophylaxis: Proton Pump Inhibitor VTE Prophylaxis: Sub-Q Heparin (Unfractionated) Resuscitation Status: CPR: Attempt Resuscitation (discussed and verified with patient) Rolf Chase MD Feb 20, 2017 16:49
--- NOTE | 2017-02-20 17:36 | CONS ---
[address] [address] CONSULTATION REPORT PATIENT: RANDY DRISCOLL : 1935 MR#: [id number] ADMIT: 02/19/2017 JOB ID: [id number] DATE OF SERVICE: 02/19/2017 REASON FOR CONSULTATION: Acute abdominal pain with elevated liver function tests. This patient's consult note was initially dictated yesterday evening; however, I do not see the dictation report up. Therefore, I am dictating the H and P again. PERSON REQUESTING CONSULTATION: The ER physician. HISTORY OF PRESENTING ILLNESS: A transmission operator was present during my interview with the patient. The patient is an 81-year-old gentleman with a past medical history significant for papillary carcinoma of the urinary bladder, who is on gemcitabine and carboplatin. He states he was in his usual state of health up until the night before the day of admission when he had pain in the epigastric area that woke him up from sleep. This was associated without any nausea, vomiting, fevers, chills, or sweats. He denies any symptoms similar to this in the past. He reports no aggravating factors. The only relieving factor has been pain medicines that he has received since he has been in the hospital. He does have increased urinary frequency and hesitancy and dysuria which he states have been present for some time. He denies any melena or hematochezia. The patient had labs done in the emergency department which revealed that he was neutropenic with a white blood cell count of 1.8 with neutrophils of 19.7%. His hemoglobin was 8.7, his hematocrit was 26.3. His LFTs revealed total bili of 1.9 with an AST of 190, ALT of 127, alkaline phosphatase of 244, and a lipase of 4791. His BMP was normal aside from his glucose being elevated at 169. His PT was 10.7, PTT was 30.8, INR was 1. Imaging included a CT abdomen which revealed evidence of mild interstitial pancreatitis, multiple small dependent calcified gallstones and gallbladder hydrops, persistent bilateral hydronephrosis, pancolonic diverticulosis, a small retrocardiac hiatal hernia, and a small fat-containing periumbilical ventral hernia. He then subsequently had an MRCP that was a poor study but no obvious intra- or extrahepatic biliary dilation noted and no obvious findings of choledocholithiasis though the study was limited by motion. PAST MEDICAL HISTORY: Significant for coronary artery disease, with non-STEMI for which he underwent cardiac catheterization and stent placement in June 2015, history of aortic valve insufficiency, history of type 2 diabetes, CVA, chronic kidney disease, hypertension, history of carotid artery stenosis, hyperlipidemia, history of anemia, and bladder cancer for which he is followed by Dr. Evans. PAST SURGICAL HISTORY: Includes appendectomy, prostatectomy, angioplasty, enucleation of right eye. FAMILY HISTORY: Noncontributory. SOCIAL HISTORY: He drinks very rarely. Denies any history of illicit drug use. He used to smoke but quit more than 15 years ago. MEDICATIONS: Home medications include amlodipine, aspirin 81 mg, atorvastatin, clopidogrel, isosorbide, metformin, metoprolol. Hospital medications include aspirin 81 mg, indoor 60 mg p.o. daily, metoprolol 50 mg p.o. b.i.d., pantoprazole 40 mg IV b.i.d., heparin 5000 units subcu q.8, Zosyn 3.37 mg IV q.8, Norvasc 2.5 mg b.i.d., nitroglycerin 0.4 mg q.5 minutes p.r.n., Artificial Tears one drop b.i.d. both eyes, Maalox p.r.n., Zofran p.r.n., Senokot p.r.n., MiraLAX p.r.n., Tylenol p.r.n., morphine 1-4 mg q.2 h. p.r.n., and insulin as needed. ALLERGIES: He has no known drug allergies. REVIEW OF SYSTEMS: His 10-point review of systems is negative except as mentioned in the HPI. PHYSICAL EXAMINATION: His vital signs were the following: Temperature is 36.5, his pulse is 68, blood pressure is 189/82, respiratory rate is 18, O2 saturation is 97% on room air. Generally, he is an elderly-appearing gentleman who appears to be in some mild distress secondary to abdominal pain but is oriented to person, place, and time. He answers questions appropriately. HEENT: No pallor. No icterus. Oropharynx is clear. Chest: Clear to auscultation bilaterally. Cardiovascular: S1 and S2 heard. Abdomen: Obese, soft. He does diffuse abdominal tenderness. There is no rebound or guarding. Bowel sounds are appreciated. Extremities with trace edema. LABORATORY DATA: As discussed above. ASSESSMENT AND PLAN: 1. An 81-year-old gentleman with advanced urinary bladder cancer presenting with pancreatitis and elevated LFTs which is suggestive of gallstone pancreatitis. However, based on the imaging that we have currently, there is no evidence of choledocholithiasis. MRI does show findings suggestive of cholecystitis and therefore would recommend IV antibiotics which have already been started by the primary team, surgical consultation, and continue to follow his LFTs. If LFTs should continue to rise, we may need to consider ERCP. In the meantime would also check a hepatitis panel. Aggressive IV fluid hydration, monitor I's and O's, and follow electrolytes closely. 2. Normocytic anemia. I suspect this is multifactorial. Would continue to follow and transfuse blood products as needed. Thank you for allowing me to participate in this patient's care. If you have any further questions, please do not hesitate to contact me.
--- NOTE | 2017-02-20 17:49 | PROG NOTE ---
[address] [address] PROGRESS NOTE PATIENT: RANDY DRISCOLL : 1935 MR#: [id number] ADMIT: 02/19/2017 JOB ID: [id number] DATE: 02/20/2017 INPATIENT MEDICAL ONCOLOGY PROGRESS REPORT: DIAGNOSIS: 1. Current admission for gallstone acute pancreatitis and acute cholecystitis. 2. T3 N0 bladder cancer, undergoing neoadjuvant chemotherapy. HISTORY OF PRESENT ILLNESS: The patient is an 81-year-old gentleman with a large right-sided bladder tumor, high-grade papillary carcinoma with apparent infiltration into adjacent right-sided perivesical fat on CT scan in January 2017, currently undergoing neoadjuvant chemotherapy with carboplatin/gemcitabine. He has completed one cycle. He presented to hospital yesterday with sudden abdominal pain that woke him up from sleep, associated with chills and nausea. The pain has been primarily located in the epigastric area. At ED lipase was markedly high at 4800, although improved to 1800 today. Bilirubin was 1.9, and 2.3 today. AST, ALT, and alkaline phosphatase have been elevated and higher today than yesterday. CT scan of abdomen and pelvis with contrast showed acute pancreatitis, gallbladder hydrops, and multiple small gallstones. An MRCP was a limited study but re-demonstrates acute pancreatitis, without obvious stone in common bile duct. HIDA scan is consistent with acute cholecystitis. OBJECTIVE: Currently he appears comfortable, resting in bed. He complains of mild residual pain in epigastric area, and on examination there is tenderness without rebound. He has had intermittent fever including 38.5 at 4 p.m. today. The rest of vitals are normal and he is not septic. LABORATORY DATA: Reviewed. Leukocyte count has been gradually rising. Absolute neutrophil count has been gradually rising. IMPRESSION AND RECOMMENDATIONS: This gentleman has acute cholecystitis and gallstone pancreatitis. Lipase has improved. The bilirubin and liver function tests have worsened today as compared to yesterday. The plan is to proceed with cholecystectomy when his acute pancreatitis resolves. As far as neutropenia, this is improving, and I do not see any reason to give him G-CSF at this point. He is on IV antibiotics for acute cholecystitis. I will follow up on his serial daily neutrophil count as well. On a side note, CT scan of the abdomen obtained yesterday shows improvement in right-sided bladder tumor. Currently it shows a bladder diverticulum, with some irregular wall thickening, but not a solid mass like before.
[2017-02-21] VITALS (8 sets, daily range): BP systolic 127–180; BP diastolic 71–99; PULSE 69–110; RESP 18–22; O2SAT 94–97
[2017-02-21 04:44] LABS: Mean Corpuscular Hemoglobin 29.3 pg (27.0-35.0); Mean Corpuscular Volume 88.5 fL (81-100); Platelet Count 430 bil/L (150-400)
[2017-02-21 05:01] LABS: INR 1.02 ratio
[2017-02-21] MEDS: Dextrose 5% 0.9% NaCl 1,000 ML IV SCH ×3 (05:10→16:18)
[2017-02-21 05:20] LABS: NEUTROPHILS % (AUTO) 57 % (40-74)
[2017-02-21 05:21] LABS: BASOPHILS % (AUTO) 0 % (0-3); EOSINOPHILS % (AUTO) 0 % (0-5); MONOCYTES % (AUTO) 14 % (4-12)
[2017-02-21 05:34] LABS: Magnesium 1.6 mg/dL (1.6-2.6); Phosphorus 2.3 mg/dL (2.5-4.9)
[2017-02-21] MEDS: Piperacillin-Tazo 3.375 Gm Inj 3.375 GM in Dextrose 5% Minibag Plus 50 ML IV SCH ×2 (06:30→17:30)
[2017-02-21] MEDS: Insulin LISPRO Low-Dose Scale SUBQ SCH ×4 (08:00→21:21)
[2017-02-21] MEDS: Isosorbide Mononitrate 30 mg ER24 Tablet PO SCH (09:07)
[2017-02-21] MEDS: Heparin 5,000 Unit/mL Inj SUBQ SCH ×2 (09:08→17:31)
[2017-02-21] MEDS: Pantoprazole 4 mg/mL 10 mL Inj IVPUSH SCH ×2 (09:14→17:32)
--- NOTE | 2017-02-21 09:15 | PCM.PNSURG ---
Subjective Date of Service: Feb 21, 2017 Date of Service: Feb 21, 2017 Visit Information: Reason for Visit Pancreatis Date of Admission: Feb 19, 2017 at 15:35 Hospital Day #2 Subjective: Subjective: Patient continues to report pain in the midline abdomen radiating to the left lower quadrant as well as right upper quadrant pain. States that he continues to be nauseous, however denies vomiting. Events Overnight: No acute events overnight. ROS: Abdominal pain, nausea Denies fever/chills, vomiting, headache, weakness, chest pain, shortness of breath, increased swelling in hands or feet. Objective Objective General: No acute distress, well-developed, well-nourished Head: Normocephalic, atraumatic. External ears without defect. Eyes: Pupils equal, round, and reactive to light and accommodation. Anicteric sclerae, moist conjunctivae. Neck: Normal range of motion, no lymphadenopathy noted Cardiovascular: Regular rate and rhythm with no murmurs, rubs, or gallops appreciated Pulmonary: Clear to auscultation bilaterally with no crackles, wheezes, or rhonchi. Normal respiratory effort with no use of accessory muscles. Port catheter in place Abdomen: Bowel tones present. Soft, nondistended. Tender to palpation of the mid to lower abdomen especially of the left lower quadrant. Right upper quadrant tenderness, Garcia's sign positive. Extremities: No clubbing, cyanosis, edema Skin: Normal temperature, turgor, and texture; no rash, ulcers, or subcutaneous nodules appreciated. Neurological: Cranial nerves grossly intact. Reflexes, coordination, and sensory function within normal limits. Normal muscle strength, tone, and bulk. Psychiatric: Normal mood and affect. Alert and oriented to person, place, and time Vital Sign- Last 8 Hours Date Time Temp Pulse Resp B/P Pulse Ox O2 Delivery O2 Flow Rate FiO2 02/21/17 08:00 101 02/21/17 05:44 89 02/21/17 04:37 37.6 89 20 164/80 94 Room Air Intake and Output- Last 8 Hour 02/21/17 Cumulative From/Thru 07:00 02/19/17 12:14 - 02/21/17 06:38 Intake Total 2399 ml 7497 ml Output Total 1350 ml 2525 ml Balance 1049 ml 4972 ml Intake Oral 650 ml 1050 ml IV Total 1749 ml 6447 ml Output Urine Total 1350 ml 2525 ml # Voids 3 Result Diagram: 02/21/17 0435 02/21/17 0435 Assessment & Plan Impression 81-year-old male with complicated past medical history including recent diagnosis of bladder cancer post one cycle chemotherapy presents with abdominal pain secondary to pancreatitis and cholecystitis Problems: Plan Gallstone Pancreatitis - resolving Acute Cholecystitis - Scheduled for Lap Simin with grams Saturday Continue Sips of Clears with Abx until operation Ambulate Please call us if any clinical deterioration VTE Prophylaxis: Sub-Q Heparin (Unfractionated) Resuscitation Status: CPR: Attempt Resuscitation (discussed and verified with patient) Bola James DO Feb 21, 2017 09:02 Hector Shelley MD Feb 23, 2017 06:10 Resuscitation Status: CPR: Attempt Resuscitation (discussed and verified with patient) Bola James DO Feb 21, 2017 09:02
--- NOTE | 2017-02-21 10:33 | DRSVH ---
[facility] [address] [place] [address] Echocardiogram Report Name: RANDY DRISCOLL Study Date: 02/21/2017 Height: 66 in Hospital Exam Location: [facility] Weight: 182 lb Gender: Male BSA: 1.9 m2 : 1935 Age: 81 yrs BP: 164/80 mmHg Reason For Study: Congestive Heart Failure Ordering Physician: Performed By: [facility] Staff Referring Physician: RENATO LONGORIA Interpretation Summary The ejection fraction is estimated to be 60-65%. There are no obvious focal wall motion abnormalities noted but poor endocardial definition reduces the sensitivity for the detection of such. Procedure: A two-dimensional transthoracic echocardiogram with color flow and Doppler was performed in limited views only. The study quality was technically difficult. Comparison is made with the echocardiogram of 01/20/17. The patient was in normal sinus rhythm during the exam. Left Ventricle: The left ventricle is normal in size. There is normal left ventricular wall thickness. The ejection fraction is estimated to be 60-65%. There are no obvious focal wall motion abnormalities noted but poor endocardial definition reduces the sensitivity for the detection of such. Tricuspid Valve: Pulmonary artery pressures cannot be estimated because of the lack of a measurable TR jet velocity. Great Vessels: The IVC appears to fully collapse with respiration, suggesting normal central venous pressure. Doppler Measurements & Calculations MV E max leonardo: 39.7 cm/sec MV E/A: 0.33 MV A max leonardo: 121.0 cm/sec Med Peak E' Leonardo: 5.3 cm/sec E/E' med: 7.5 Lat Peak E' Leonardo: 6.1 cm/sec E/E' lat: 6.5 E/e' average: 7.0 MV dec time: 0.06 sec Electronically signed by: Han Nunez on Reading Physician:02/21/2017 10:33 AM
--- NOTE | 2017-02-21 11:08 | PCM.PNMED ---
Subjective Date of Service Feb 21, 2017 Subjective The patient continues to complain of abdominal pain located in the epigastric region and RUQ. He otherwise denies chest pain, SOB, nausea, vomiting, or diarrhea. We had an extensive conversation about the patient's goals of care, which he chose to defer until he could confer with his children, who are out working in the mack into late in the evening. There were no significant overnight events. Exam Vital Signs Vital Sign - Last Date Time Temp Pulse Resp B/P Pulse Ox O2 Delivery O2 Flow Rate FiO2 02/21/17 08:57 38.8 110 20 180/99 94 Room Air Intake and Output 02/20/17 02/20/17 02/21/17 Cumulative From/Thru 15:00 23:00 07:00 02/19/17 12:14 - 02/21/17 06:38 Intake Total 1016 ml 2399 ml 7497 ml Output Total 450 ml 1350 ml 2525 ml Balance 566 ml 1049 ml 4972 ml Intake Oral 0 ml 650 ml 1050 ml IV Total 1016 ml 1749 ml 6447 ml Output Urine Total 450 ml 1350 ml 2525 ml # Voids 3 Exam Gen: A/O x3 pleasant cooperative elderly gentleman in NAD Neck: Supple, non tender, no thyromegaly HEENT: PERRL, EOMI, no scleral icterus, no conjunctival pallor. CV: RRR, no murmurs rubs or gallops Resp: Diffuse mild expiratory wheezing, no rales or rhonchi Abd: Diffusely tender to palpation, most focused in epigastric region, RUQ, and LLQ; positive Garcia sign Extr: Good muscle tone for age, no clubbing cyanosis or edema. Neuro: CN 2-12, no focal neurologic deficit Psych: The patient did become emotional and tearful during goals of care discussion. . IVs and Medications Medications Reviewed: Medications were reviewed in detail Lab and Diagnostics Item Value Date Time Red Blood Count 2.87 mil/mm3 L 02/21/17434 Mean Corpuscular Volume 88.5 fL 02/21/17434 Mean Corpuscular Hemoglobin 29.3 pg 02/21/17434 Mean Corpuscular Hemoglobin Concent 33.1 % 02/21/17434 Red Cell Distribution Width 13.5 % 02/21/17434 Neutrophils (%) (Auto) 57 % 02/21/17434 Lymphocytes (%) (Auto) 24 % 02/21/17434 Monocytes (%) (Auto) 14 % H 02/21/17434 Eosinophils (%) (Auto) 0 % 02/21/17434 Basophils (%) (Auto) 0 % 02/21/17434 Band Neutrophils % 5 % 02/21/17434 Nucleated Red Blood Cells 1 /100 WBC 02/21/17434 Estimat Glomerular Filtration Rate 63 mL/min 02/21/17434 Calcium Level 7.9 mg/dL L 02/21/17434 Phosphorus Level 2.3 mg/dL L 02/21/17434 Magnesium Level 1.6 mg/dL 02/21/17434 Total Bilirubin 0.7 mg/dL 02/21/17434 Aspartate Amino Transf (AST/SGOT) 93 U/L H 02/21/17434 Alanine Aminotransferase (ALT/SGPT) 127 U/L H 02/21/17434 Alkaline Phosphatase 243 U/L H 02/21/17434 Total Protein 6.8 g/dL 02/21/17434 Albumin 3.3 g/dL L 02/21/17434 Lipase 379 U/L H 02/21/17434 Procalcitonin 0.22 ng/mL H 02/21/17434 Result Diagram: 02/21/1743402/21/17434 Microbiology Blood cultures pending X-Rays, CTs and MRIs Date of Service: 02/19/17 1222 PROCEDURE: CT ABDOMEN AND PELVIS WITH CONTRAST IMPRESSION: 1. Interval development of mild interstitial edematous pancreatitis, without acute peripancreatic fluid collections. 2. Multiple small dependent calcified gallstones as before. Gallbladder hydrops is also now present, which may reflect gallbladder outlet obstruction and incipient acute cholecystitis, versus a fasting state. 3. Persistent bilateral hydroureteronephrosis, probably secondary to vesicoureteral reflux. 2.9 cm right bladder diverticulum as before. 4. Ruiz colonic diverticulosis, without acute diverticulitis. 5. Small retrocardiac hiatal hernia as before. 6. Small fat containing periumbilical ventral hernia. Dictated by: Zachery Wolfe M.D. on 02/19/2017 at 14:13 Approved by: Zachery Wolfe M.D. on 02/19/2017 at 14:28 MR ABDOMEN MRCP IMPRESSION: 1. Study is degraded by patient motion and was terminated by the patient prior to obtaining dedicated MRCP images. 2. Enlarged gallbladder containing cholelithiasis with pericholecystic fluid most consistent with acute cholecystitis. 3. No intra-or extrahepatic hepatic bile duct dilatation. Grossly there is no choledocholithiasis although imaging is limited by motion and lack of MRCP images. 4. Peripancreatic edema consistent with pancreatitis. Dictated by: Michael Hand M.D. on 02/19/2017 at 17:31 Approved by: Michael Hand M.D. on 02/19/2017 at 17:43 . Cardiac Echo Impressions Interpretation Summary The ejection fraction is estimated to be 60-65%. There are no obvious focal wall motion abnormalities noted but poor endocardial definition reduces the sensitivity for the detection of such. Electronically signed by: Han Nunez on Reading Physician:02/21/2017 10:33 AM . Additional Diagnostics NM HIDA SCAN WITHOUT CCK IMPRESSION: 1. Nonfilling of gallbladder consistent with cystic duct obstruction. This finding is highly compatible with acute cholecystitis. 2. Patent common bile duct. No evidence for biliary obstruction. 3. Reflux of bile into the stomach. Dictated by: Anastacio Bales M.D. on 02/20/2017 at 16:36 Approved by: Anastacio Bales M.D. on 02/20/2017 at 16:39 . 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 Per surgery they will likely defer cholecystitis until 02/24 in order to have 5 days off of plavix and for his pancreatitis to calm down. The patient will be maintained NPO with ice chips until that time. Acute pancreatitis, present on admission. - MRCP not indicative of choledocholithiasis - NPO per GI recommendations - Continue with supportive care including IVF, anti-emetics, and pain control with IV Morphine as needed - Per discussion with general surgery, surgical intervention will be postponed until the acute phase of pancreatitis has passed Acute cholecystitis, present on admission. - MRCP with results as above - Will proceed with HIDA scan to further delineate gallbladder process - Continue with empiric IV Zosyn started in ED on 02/19/17 - Continue with supportive care as noted above - Surgery will likely defer cholecystectomy until 02/21/17 - Continue to hold Plavix in anticipation of surgery Acute hypertensive urgency, present on admission - Likely exacerbation of underlying history of hypertension from acute abdominal pain noted above - Continue with supportive care and pain control noted above - Continue with home BP Meds - If SBP continue to remain greater than 180 despite adequate pain control will cover with IV Labetalol as needed Acute mild lactic acid elevation, present on admission - trended back to normal History of coronary artery disease, presumed stable - Continue with home BP meds - Continue with home dose ASA - Hold home dose Plavix at least for now - Hold Statin for now given elevated LFTs T3 N0 bladder cancer, present on admission. - Will defer further followup and management to oncology as outpatient for now. - Dr Evans has been made aware of the patient's admission - does not recommend Neupogen at this time for neutropenia Recent severe neutropenia post chemotherapy s/p Neupogen 480 mcg subcutaneously x 1 dose on 02/16/17 - Currently improved and only mild leukopenia and anemia persisting - Followup closely as these improved values may be due to hemoconcentration Chronic pruritic rash. Etiology is unclear. - Currently denies any significant pruritus and no rash noted on exam History of diabetes - Hold home Metformin - Cover with ISS for now - HgA1C Disposition: Cannot accurately predict anticipated length of stay, surgery tentatively plans to take the patient to the OR on 02/24/17. Anticipate at least 5 more days of hospitalization. Pain Evaluation: Adequate Pain Control GI Prophylaxis: Proton Pump Inhibitor VTE Prophylaxis: Sub-Q Heparin (Unfractionated) Resuscitation Status: CPR: Attempt Resuscitation (discussed and verified with patient) Attending Statement The patient was seen and examined together with Dr. Watson on 02/21/17 and I agree with the history, exam and plan as outlined in the note above. Robbie Watson DO Feb 21, 2017 11:08 Ravinder Hernandez Feb 22, 2017 10:23
--- NOTE | 2017-02-21 14:14 | PCM.PNSURG ---
Subjective Date of Service: Feb 21, 2017 Date of Service: Feb 21, 2017 Visit Information: Subjective: pt reports continued diffuse abdominal pain 02/10. currently npo. Postop General: No Complaints Objective Vital Sign- Last 8 Hours Date Time Temp Pulse Resp B/P Pulse Ox O2 Delivery O2 Flow Rate FiO2 02/21/17 12:30 36.3 69 19 136/71 95 Room Air 02/21/17 08:57 38.8 110 20 180/99 94 Room Air 02/21/17 08:00 101 Intake and Output- Last 8 Hour 02/21/17 Cumulative From/Thru 07:00 02/19/17 12:14 - 02/21/17 06:38 Intake Total 2399 ml 7497 ml Output Total 1350 ml 2525 ml Balance 1049 ml 4972 ml Intake Oral 650 ml 1050 ml IV Total 1749 ml 6447 ml Output Urine Total 1350 ml 2525 ml # Voids 3 General: Oriented X3 Neck: Supple Lungs: Clear to Auscultation Heart: Exam Unremarkable Abdomen: Benign, Soft, Appropriately tender, Non-distended, Normoactive bowel tones Extremities: Distal Pulses Palpable Result Diagram: 02/21/17 0435 02/21/17 0435 Assessment & Plan Impression 81-year-old gentleman with advanced urinary bladder cancer presenting with abdominal pain, epigastric with lipase 1818 c/w acute gallstone pancreatitis and nonfilling gallbladder due to cystic duct obstruction on cck hida scan 2016 c/w acute cholecystitis. ct abdomen pelvis contrast 02/19/2017- IMPRESSION: 1. Interval development of mild interstitial edematous pancreatitis, without acute peripancreatic fluid collections. 2. Multiple small dependent calcified gallstones as before. Gallbladder hydrops is also now present, which may reflect gallbladder outlet obstruction and incipient acute cholecystitis, versus a fasting state. 3. Persistent bilateral hydroureteronephrosis, probably secondary to vesicoureteral reflux. 2.9 cm right bladder diverticulum as before. 4. Ruiz colonic diverticulosis, without acute diverticulitis. 5. Small retrocardiac hiatal hernia as before. 6. Small fat containing periumbilical ventral hernia. mrcp 02/19/2017- IMPRESSION: 1. Study is degraded by patient motion and was terminated by the patient prior to obtaining dedicated MRCP images. 2. Enlarged gallbladder containing cholelithiasis with pericholecystic fluid most consistent with acute cholecystitis. 3. No intra-or extrahepatic hepatic bile duct dilatation. Grossly there is no choledocholithiasis although imaging is limited by motion and lack of MRCP images. 4. Peripancreatic edema consistent with pancreatitis. cck hida scan 02/20/2017- IMPRESSION: 1. Nonfilling of gallbladder consistent with cystic duct obstruction. This finding is highly compatible with acute cholecystitis. 2. Patent common bile duct. No evidence for biliary obstruction. 3. Reflux of bile into the stomach. Recs: - npo, ivfs, pain control - recs per Gen surgery - cont trend transaminases will continue to follow. Problems: VTE Prophylaxis: Sub-Q Heparin (Unfractionated) Resuscitation Status: CPR: Attempt Resuscitation (discussed and verified with patient) Robbie Solorzano MD Feb 21, 2017 14:14
[2017-02-21] MEDS: 0.9% Sodium Chloride 250 ML IV SCH (15:35)
--- NOTE | 2017-02-21 17:45 | PCM.ADCARE ---
Advance Care Planning Note Purpose of Encounter: Goals of care regarding history of bladder cancer and other chronic medical issues Parties in Attendance: Patient, his , used car salesperson Decisional Capacity: decisional Subjective: abdominal pain Objective: Gen: pleasant cooperativ, NAD Neck: Supple, non tender, no thyromegaly HEENT: no scleral icterus CV: RRR Resp: Diffuse mild expiratory wheezing, no rales or rhonchi Abd: Diffusely tender to palpation, most focused in epigastric region Goals of Care Determinations: Patient and his acknowledge that patient has history of bladder cancer and other medical issues however they note that they do not wish to make any definite decisions about his code status without his children present. They do not that they wish for patient to be full code for now and their goals from this hospitalization is for patient to recover from his acute pancreatitis and cholecystitis and to return to his previous home setting Plan: Continue with current medical management and tentative plan for surgical cholecystectomy in the next couple of days CODE STATUS: Full code Time Spent Adv.Care Plannin min Ravinder Hernandez Feb 21, 2017 17:45
[2017-02-22] VITALS (7 sets, daily range): BP systolic 142–162; BP diastolic 68–82; PULSE 71–107; RESP 18–20; O2SAT 91–95
[2017-02-22] MEDS: Heparin 5,000 Unit/mL Inj SUBQ SCH ×3 (01:09→17:59)
[2017-02-22] MEDS: Dextrose 5% 0.9% NaCl 1,000 ML IV SCH ×3 (04:32→17:32)
[2017-02-22] MEDS: Piperacillin-Tazo 3.375 Gm Inj 3.375 GM in Dextrose 5% Minibag Plus 50 ML IV SCH ×3 (04:35→20:19)
[2017-02-22 05:02] LABS: Mean Corpuscular Hemoglobin 29.3 pg (27.0-35.0); Mean Corpuscular Volume 87.9 fL (81-100); Platelet Count 570 bil/L (150-400)
[2017-02-22 05:29] LABS: BASOPHILS % (AUTO) 0 % (0-3); EOSINOPHILS % (AUTO) 0 % (0-5); MONOCYTES % (AUTO) 15 % (4-12); NEUTROPHILS % (AUTO) 60 % (40-74)
[2017-02-22 05:34] LABS: Magnesium 1.6 mg/dL (1.6-2.6); Phosphorus 2.4 mg/dL (2.5-4.9)
[2017-02-22] MEDS ORDERED: Potassium Phos (mEq) Inj 40 MEQ in Dextrose 5% 500 ML IV ONE (07:50)
--- NOTE | 2017-02-22 07:58 | PCM.PNSURG ---
Subjective Date of Service: Feb 22, 2017 Date of Service: Feb 22, 2017 Visit Information: Reason for Visit Pancreatis Surgery/Surgery Date Date of Admission: Feb 19, 2017 at 15:35 Hospital Day #3 Subjective: Subjective: Patient continues to report pain in the abdomen which is been constant since arrival. Patient reports that this pain is not well-controlled with oral medications. Events Overnight: No acute events overnight. ROS: Abdominal pain, nausea Denies fever/chills, nausea/vomiting, headache, weakness, abdominal pain, chest pain, shortness of breath, increased swelling in hands or feet. Objective Objective General: No acute distress, well-developed, well-nourished Head: Normocephalic, atraumatic. External ears without defect. Eyes: Pupils equal, round, and reactive to light and accommodation. Anicteric sclerae, moist conjunctivae. Neck: Normal range of motion, no lymphadenopathy noted Cardiovascular: Regular rate and rhythm with no murmurs, rubs, or gallops appreciated Pulmonary: Clear to auscultation bilaterally with no crackles, wheezes, or rhonchi. Port catheter in place Abdomen: Bowel tones present. Soft, nondistended. Tender to palpation of the mid to lower abdomen especially of the left lower quadrant. Right upper quadrant tenderness, Garcia's sign positive. Extremities: No clubbing, cyanosis, edema Skin: Normal temperature, turgor, and texture; no rash, ulcers, or subcutaneous nodules appreciated. Neurological: Cranial nerves grossly intact. Reflexes, coordination, and sensory function within normal limits. Normal muscle strength, tone, and bulk. Psychiatric: Normal mood and affect. Alert and oriented to person, place, and time Vital Sign- Last 8 Hours Date Time Temp Pulse Resp B/P Pulse Ox O2 Delivery O2 Flow Rate FiO2 02/22/17 04:42 107 02/22/17 03:52 37.3 77 18 155/82 94 Room Air 02/22/17 00:35 37.4 87 20 142/68 95 Room Air Intake and Output- Last 8 Hour 02/22/17 Cumulative From/Thru 07:00 02/19/17 12:14 - 02/22/17 06:52 Intake Total 1267 ml 02668 ml Output Total 1625 ml 5470 ml Balance -358 ml 5066 ml Intake Oral 40 ml 1450 ml IV Total 1227 ml 9086 ml Output Urine Total 1625 ml 5470 ml # Voids 3 Result Diagram: 02/22/1743102/22/17431 Assessment & Plan Impression 81-year-old male with complicated past medical history including recent diagnosis of bladder cancer post one cycle chemotherapy presents with abdominal pain secondary to pancreatitis and cholecystitis Problems: Plan Sips of clears with Abx Ambulate Lap Simin with grams scheduled for Saturday Please call if any clinical deterioration in the interim VTE Prophylaxis: Sub-Q Heparin (Unfractionated) Resuscitation Status: CPR: Attempt Resuscitation (discussed and verified with patient) Bola James DO Feb 22, 2017 07:58 Hector Shelley MD Feb 23, 2017 06:13 patient) Bola James DO Feb 22, 2017 07:58
[2017-02-22] MEDS: Insulin LISPRO Low-Dose Scale SUBQ SCH ×4 (08:00→22:00)
[2017-02-22] MEDS: Isosorbide Mononitrate 30 mg ER24 Tablet PO SCH (08:03)
[2017-02-22] MEDS: Pantoprazole 4 mg/mL 10 mL Inj IVPUSH SCH ×2 (08:03→16:30)
--- NOTE | 2017-02-22 13:40 | PCM.PNMED ---
Subjective Date of Service Feb 22, 2017 Subjective Today the patient states that he continues to suffer from abdominal pain which he states is essentially unchanged since admission. There was an extensive discussion about code status and goals of care, see advance care planning note for further details; essentially the patient elected to convert to DNR/DNI after his surgical procedure which is anticipated to occur on Saturday02/24/17. No significant overnight events. Exam Vital Signs Vital Sign - Last Date Time Temp Pulse Resp B/P Pulse Ox O2 Delivery O2 Flow Rate FiO2 02/22/17 12:19 37.7 71 20 162/76 94 Room Air Intake and Output 02/21/17 02/21/17 02/22/17 Cumulative From/Thru 15:00 23:00 07:00 02/19/17 12:14 - 02/22/17 06:52 Intake Total 1772 ml 1267 ml 28073 ml Output Total 1320 ml 1625 ml 5470 ml Balance 452 ml -358 ml 5066 ml Intake Oral 360 ml 40 ml 1450 ml IV Total 1412 ml 1227 ml 9086 ml Output Urine Total 1320 ml 1625 ml 5470 ml # Voids 3 Exam Gen: A/O x3 pleasant cooperative elderly gentleman in NAD Neck: Supple, non tender, no thyromegaly HEENT: PERRL, EOMI, no scleral icterus, no conjunctival pallor. CV: RRR, no murmurs rubs or gallops Resp: Diffuse mild expiratory wheezing, no rales or rhonchi Abd: Diffusely tender to palpation, most focused in epigastric region, RUQ, and LLQ; positive Garcia sign Extr: Good muscle tone for age, no clubbing cyanosis or edema. Neuro: CN 2-12, no focal neurologic deficit Psych: Appropriate mood and affect . IVs and Medications Medications Reviewed: Medications were reviewed in detail Lab and Diagnostics Item Value Date Time Red Blood Count 2.97 mil/mm3 L 02/22/17 043 Mean Corpuscular Volume 87.9 fL 02/22/17431 Mean Corpuscular Hemoglobin 29.3 pg 02/22/17431 Mean Corpuscular Hemoglobin Concent 33.3 % 02/22/17 043 Red Cell Distribution Width 13.8 % 02/22/17 043 Neutrophils (%) (Auto) 60 % 02/22/17 043 Lymphocytes (%) (Auto) 17 % 02/22/17431 Monocytes (%) (Auto) 15 % H 02/22/17431 Eosinophils (%) (Auto) 0 % 02/22/17431 Basophils (%) (Auto) 0 % 02/22/17431 Band Neutrophils % 6 % H 02/22/17431 Estimat Glomerular Filtration Rate 65 mL/min 02/22/17431 Calcium Level 8.0 mg/dL L 02/22/17431 Phosphorus Level 2.4 mg/dL L 02/22/17431 Magnesium Level 1.6 mg/dL 02/22/17431 Total Bilirubin 0.5 mg/dL 02/22/17431 Aspartate Amino Transf (AST/SGOT) 46 U/L 02/22/17431 Alanine Aminotransferase (ALT/SGPT) 85 U/L H 02/22/17431 Alkaline Phosphatase 222 U/L H 02/22/17431 Total Protein 7.0 g/dL 02/22/17431 Albumin 3.2 g/dL L 02/22/17431 Procalcitonin 0.22 ng/mL H 02/22/17431 Result Diagram: 02/22/1743102/22/17431 Microbiology Blood cultures pending X-Rays, CTs and MRIs Date of Service: 02/19/17 1222 PROCEDURE: CT ABDOMEN AND PELVIS WITH CONTRAST IMPRESSION: 1. Interval development of mild interstitial edematous pancreatitis, without acute peripancreatic fluid collections. 2. Multiple small dependent calcified gallstones as before. Gallbladder hydrops is also now present, which may reflect gallbladder outlet obstruction and incipient acute cholecystitis, versus a fasting state. 3. Persistent bilateral hydroureteronephrosis, probably secondary to vesicoureteral reflux. 2.9 cm right bladder diverticulum as before. 4. Ruiz colonic diverticulosis, without acute diverticulitis. 5. Small retrocardiac hiatal hernia as before. 6. Small fat containing periumbilical ventral hernia. Dictated by: Zachery Wolfe M.D. on 02/19/2017 at 14:13 Approved by: Zachery Wolfe M.D. on 02/19/2017 at 14:28 MR ABDOMEN MRCP IMPRESSION: 1. Study is degraded by patient motion and was terminated by the patient prior to obtaining dedicated MRCP images. 2. Enlarged gallbladder containing cholelithiasis with pericholecystic fluid most consistent with acute cholecystitis. 3. No intra-or extrahepatic hepatic bile duct dilatation. Grossly there is no choledocholithiasis although imaging is limited by motion and lack of MRCP images. 4. Peripancreatic edema consistent with pancreatitis. Dictated by: Michael Hand M.D. on 02/19/2017 at 17:31 Approved by: Michael Hand M.D. on 02/19/2017 at 17:43 . Cardiac Echo Impressions Interpretation Summary The ejection fraction is estimated to be 60-65%. There are no obvious focal wall motion abnormalities noted but poor endocardial definition reduces the sensitivity for the detection of such. Electronically signed by: Han Nunez on Reading Physician:02/21/2017 10:33 AM . Additional Diagnostics NM HIDA SCAN WITHOUT CCK IMPRESSION: 1. Nonfilling of gallbladder consistent with cystic duct obstruction. This finding is highly compatible with acute cholecystitis. 2. Patent common bile duct. No evidence for biliary obstruction. 3. Reflux of bile into the stomach. Dictated by: Anastacio Bales M.D. on 02/20/2017 at 16:36 Approved by: Anastacio Bales M.D. on 02/20/2017 at 16:39 . 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 Per surgery they will likely defer cholecystitis until 02/24 in order to have 5 days off of plavix and for his pancreatitis to calm down. The patient will be maintained NPO with ice chips until that time. There was an extensive goals of care discussion conducted with the patient, his spouse, and daughter; essentially they elected to convert the patient to DNR/DNI following his anticipated surgery on 02/24/17. Acute pancreatitis, present on admission. - MRCP not indicative of choledocholithiasis - NPO per GI recommendations - Continue with supportive care including IVF, anti-emetics, and pain control with IV Morphine as needed - Per discussion with general surgery, surgical intervention will be postponed until the acute phase of pancreatitis has passed Acute cholecystitis, present on admission. - MRCP with results as above - Will proceed with HIDA scan to further delineate gallbladder process - Continue with empiric IV Zosyn started in ED on 02/19/17 - Continue with supportive care as noted above - Surgery will likely defer cholecystectomy until 02/24/17 - Continue to hold Plavix in anticipation of surgery Acute hypertensive urgency, present on admission - Likely exacerbation of underlying history of hypertension from acute abdominal pain noted above - Continue with supportive care and pain control noted above - Continue with home BP Meds - If SBP continue to remain greater than 180 despite adequate pain control will cover with IV Labetalol as needed Acute mild lactic acid elevation, present on admission - trended back to normal History of coronary artery disease, presumed stable - Continue with home BP meds - Continue with home dose ASA - Hold home dose Plavix at least for now - Hold Statin for now given elevated LFTs T3 N0 bladder cancer, present on admission. - Will defer further followup and management to oncology as outpatient for now. - Dr Evans has been made aware of the patient's admission - does not recommend Neupogen at this time for neutropenia Recent severe neutropenia post chemotherapy s/p Neupogen 480 mcg subcutaneously x 1 dose on 02/16/17 - Currently improved and only mild leukopenia and anemia persisting - Followup closely as these improved values may be due to hemoconcentration Chronic pruritic rash. Etiology is unclear. - Currently denies any significant pruritus and no rash noted on exam History of diabetes - Hold home Metformin - Cover with ISS for now - HgA1C Disposition: Cannot accurately predict anticipated length of stay, surgery tentatively plans to take the patient to the OR on 02/24/17. Anticipate at least 4 more days of hospitalization. Pain Evaluation: Adequate Pain Control GI Prophylaxis: Proton Pump Inhibitor VTE Prophylaxis: Sub-Q Heparin (Unfractionated) Resuscitation Status: CPR: Attempt Resuscitation (discussed and verified with patient) Attending Statement The patient was seen and examined together with Dr. Watson on 02/22/17 and I agree with the history, exam and plan as outlined in the note above. Robbie Watson DO Feb 22, 2017 13:40 Ravinder Hernandez Feb 22, 2017 18:22
[2017-02-22] MEDS: 0.9% Sodium Chloride 250 ML IV SCH (15:35)
--- NOTE | 2017-02-22 17:47 | PCM.ADCARE ---
Robbie Watson Sukumar DO 02/22/17 5177: Advance Care Planning Note Purpose of Encounter: Determine code status and goals of care Parties in Attendance: Dr. Robbie Watson Patient and his and daughter [employer] Marilyn Pankajosmani Decisional Capacity: Patient appears marginally decisional, defers to and daughter who are active in his care Subjective: A family meeting to clarify the patient's wishes in the event of adverse circumstances given his age and diagnosis of bladder cancer. A discussion about code status was initiated yesterday but the patient and his did not fully comprehend the message that was being delivered. We were attempting to clarify the patient's code status in light of his diagnoses, but he and his interpreted this encounter as us informing him he was likely to soon. After appropriate clarification the topic of code status was explored in more detail. The family was informed that his age and co-morbid conditions would make an acceptable outcome after a code situation very unlikely, and the code process would be very traumatic for all concerned. The family absorbed this information well and asked insightful and appropriate questions. Objective: After an in depth discussion in which the patient and family demonstrated a solid grasp on the intricacies of the situation; they elected that after the patient's upcoming surgical procedure they would like him to be converted to DNR /DNI status. They would like all other reasonable life prolonging measures such as antibiotics, supportive medical care, and non invasive positive pressure ventilation. They acknowledge that should his health continue to deteriorate they would be willing to explore options for comfort care/hospice; but feel such a conversion would be premature at this time. Goals of Care Determinations: -Patient would like to converted to DNR/DNI following anticipated surgery -should his health deteriorate such that a surgery would no longer be possible they would like to convert to DNR/DNI and discuss options for comfort care. CODE STATUS: -Currently Full Code -Will convert to DNR/DNI following anticipated surgery, likely 02/24/17 Time Spent Adv.Care Planning: Time spent in discussion with family and documenting results of the conversation > 35 minutes. Ravinder Hernandez 02/22/17 6808: Advance Care Planning Note Adv. Care Plan Documenation: The patient was seen and examined together with Dr. Watson on 02/22/17 and I agree with the history, exam and plan as outlined in the note above. Robbie Watson DO Feb 22, 2017 17:47 Ravinder Hernandez Feb 22, 2017 18:28
--- NOTE | 2017-02-22 18:17 | PCM.PNSURG ---
Subjective Date of Service: Feb 22, 2017 Date of Service: Feb 22, 2017 Visit Information: Subjective: abdominal pain unchanged from yesterday. Per surgery note, tentative to OR pm . pt spiking temps 38 on zosyn Postop General: No Complaints Objective Vital Sign- Last 8 Hours Date Time Temp Pulse Resp B/P Pulse Ox O2 Delivery O2 Flow Rate FiO2 02/22/17 17:56 38.0 02/22/17 12:19 37.7 71 20 162/76 94 Room Air Intake and Output- Last 8 Hour 02/22/17 Cumulative From/Thru 07:00 02/19/17 12:14 - 02/22/17 06:52 Intake Total 1267 ml 74147 ml Output Total 1625 ml 5470 ml Balance -358 ml 5066 ml Intake Oral 40 ml 1450 ml IV Total 1227 ml 9086 ml Output Urine Total 1625 ml 5470 ml # Voids 3 General: Oriented X3 Neck: Supple Lungs: Clear to Auscultation Heart: Exam Unremarkable Abdomen: Benign, Soft, Appropriately tender, Non-distended, Normoactive bowel tones Extremities: Distal Pulses Palpable Result Diagram: 02/22/17 0432 02/22/17 0432 Assessment & Plan Impression 81-year-old gentleman with advanced urinary bladder cancer presenting with abdominal pain, epigastric with lipase 1818 c/w acute gallstone pancreatitis and nonfilling gallbladder due to cystic duct obstruction on cck hida scan 2016 c/w acute cholecystitis. ct abdomen pelvis contrast 02/19/2017- IMPRESSION: 1. Interval development of mild interstitial edematous pancreatitis, without acute peripancreatic fluid collections. 2. Multiple small dependent calcified gallstones as before. Gallbladder hydrops is also now present, which may reflect gallbladder outlet obstruction and incipient acute cholecystitis, versus a fasting state. 3. Persistent bilateral hydroureteronephrosis, probably secondary to vesicoureteral reflux. 2.9 cm right bladder diverticulum as before. 4. Ruiz colonic diverticulosis, without acute diverticulitis. 5. Small retrocardiac hiatal hernia as before. 6. Small fat containing periumbilical ventral hernia. mrcp 02/19/2017- IMPRESSION: 1. Study is degraded by patient motion and was terminated by the patient prior to obtaining dedicated MRCP images. 2. Enlarged gallbladder containing cholelithiasis with pericholecystic fluid most consistent with acute cholecystitis. 3. No intra-or extrahepatic hepatic bile duct dilatation. Grossly there is no choledocholithiasis although imaging is limited by motion and lack of MRCP images. 4. Peripancreatic edema consistent with pancreatitis. cck hida scan 02/20/2017- IMPRESSION: 1. Nonfilling of gallbladder consistent with cystic duct obstruction. This finding is highly compatible with acute cholecystitis. 2. Patent common bile duct. No evidence for biliary obstruction. 3. Reflux of bile into the stomach. Recs: - npo, ivfs, pain control - recs per Gen surgery - cont trend transaminases - cont abx per hospitalist team. will continue to follow. Problems: VTE Prophylaxis: Sub-Q Heparin (Unfractionated) Resuscitation Status: CPR: Attempt Resuscitation (discussed and verified with patient) Robbie Solorzano MD Feb 22, 2017 18:17
[2017-02-23] VITALS (9 sets, daily range): BP systolic 109–171; BP diastolic 64–80; PULSE 72–111; RESP 18–22; O2SAT 95–99
[2017-02-23] MEDS: Heparin 5,000 Unit/mL Inj SUBQ SCH ×3 (00:43→18:10)
[2017-02-23] MEDS: Dextrose 5% 0.9% NaCl 1,000 ML IV SCH ×3 (03:31→20:21)
[2017-02-23] MEDS: Piperacillin-Tazo 3.375 Gm Inj 3.375 GM in Dextrose 5% Minibag Plus 50 ML IV SCH ×3 (04:37→21:04)
[2017-02-23 04:46] LABS: Mean Corpuscular Hemoglobin 29.7 pg (27.0-35.0); Mean Corpuscular Volume 87.5 fL (81-100); Platelet Count 652 bil/L (150-400)
[2017-02-23 05:00] LABS: MONOCYTES % (AUTO) 18 % (4-12); NEUTROPHILS % (AUTO) 70 % (40-74)
[2017-02-23 05:01] LABS: BASOPHILS % (AUTO) 0 % (0-3); EOSINOPHILS % (AUTO) 1 % (0-5)
[2017-02-23 05:08] LABS: Magnesium 1.5 mg/dL (1.6-2.6); Phosphorus 2.4 mg/dL (2.5-4.9)
--- NOTE | 2017-02-23 06:11 | PCM.PNSURG ---
Subjective Date of Service: Feb 23, 2017 Date of Service: Feb 23, 2017 Visit Information: Reason for Visit Pancreatis S Subjective: pt spiked temp 38 overnight. no change abdominal pain. transaminses cont to trend lower. Postop General: No Complaints Objective Intake and Output- Last 8 Hour 02/23/17 Cumulative From/Thru 07:00 02/19/17 12:14 - 02/23/17 03:25 Intake Total 10818 ml Output Total 6320 ml Balance 4336 ml Intake Oral 1570 ml IV Total 9086 ml Output Urine Total 6320 ml # Voids 3 # Bowel Movements 0 General: Oriented X3 Neck: Supple Lungs: Clear to Auscultation Heart: Exam Unremarkable Abdomen: Benign, Soft, Appropriately tender, Non-distended, Normoactive bowel tones Extremities: Distal Pulses Palpable Result Diagram: 02/23/1743902/23/17439 Assessment & Plan Impression 81-year-old gentleman with advanced urinary bladder cancer presenting with abdominal pain, epigastric with lipase 1818 c/w acute gallstone pancreatitis and nonfilling gallbladder due to cystic duct obstruction on cck hida scan 2016 c/w acute cholecystitis. ct abdomen pelvis contrast 02/19/2017- IMPRESSION: 1. Interval development of mild interstitial edematous pancreatitis, without acute peripancreatic fluid collections. 2. Multiple small dependent calcified gallstones as before. Gallbladder hydrops is also now present, which may reflect gallbladder outlet obstruction and incipient acute cholecystitis, versus a fasting state. 3. Persistent bilateral hydroureteronephrosis, probably secondary to vesicoureteral reflux. 2.9 cm right bladder diverticulum as before. 4. Ruiz colonic diverticulosis, without acute diverticulitis. 5. Small retrocardiac hiatal hernia as before. 6. Small fat containing periumbilical ventral hernia. mrcp 02/19/2017- IMPRESSION: 1. Study is degraded by patient motion and was terminated by the patient prior to obtaining dedicated MRCP images. 2. Enlarged gallbladder containing cholelithiasis with pericholecystic fluid most consistent with acute cholecystitis. 3. No intra-or extrahepatic hepatic bile duct dilatation. Grossly there is no choledocholithiasis although imaging is limited by motion and lack of MRCP images. 4. Peripancreatic edema consistent with pancreatitis. cck hida scan 02/20/2017- IMPRESSION: 1. Nonfilling of gallbladder consistent with cystic duct obstruction. This finding is highly compatible with acute cholecystitis. 2. Patent common bile duct. No evidence for biliary obstruction. 3. Reflux of bile into the stomach. Recs: - npo, ivfs, pain control - recs per Gen surgery. - cont trend transaminases - cont abx per hospitalist team. will continue to follow. Problems: VTE Prophylaxis: Sub-Q Heparin (Unfractionated) Resuscitation Status: CPR: Attempt Resuscitation (discussed and verified with patient) Robbie Solorzano MD Feb 23, 2017 06:11
[2017-02-23] MEDS: Insulin LISPRO Low-Dose Scale SUBQ SCH ×4 (08:00→22:00)
[2017-02-23] MEDS ORDERED: Sodium-Potassium Phosphorus Packet PO ONE (08:05)
[2017-02-23] MEDS ORDERED: 0.9% Sodium Chloride 250 ML IV SCH (08:20)
[2017-02-23] MEDS ORDERED: HepLOK Flush 100 unit/mL 5 mL Inj IVFLUSH PRN (08:20)
[2017-02-23] MEDS ORDERED: Sodium Chloride LOK Flush 10 mL Syringe IVFLUSH PRN ×2 (08:20)
[2017-02-23] MEDS: Isosorbide Mononitrate 30 mg ER24 Tablet PO SCH (10:22)
[2017-02-23] MEDS: Pantoprazole 40 mg ER24 Tablet PO SCH ×2 (10:26→16:30)
--- NOTE | 2017-02-23 10:32 | PCM.PNMED ---
Subjective Date of Service Feb 23, 2017 Subjective Patient is in the bed, complaining o abdominal pain, distention. Exam Vital Signs Vital Sign - Last Date Time Temp Pulse Resp B/P Pulse Ox O2 Delivery O2 Flow Rate FiO2 02/23/17 07:20 37.0 93 20 164/76 95 Room Air Intake and Output 02/22/17 02/22/17 02/23/17 Cumulative From/Thru 15:00 23:00 07:00 02/19/17 12:14 - 02/23/17 06:46 Intake Total 120 ml 2282 ml 04313 ml Output Total 850 ml 6320 ml Balance -730 ml 2282 ml 6618 ml Intake Oral 120 ml 1570 ml IV Total 2282 ml 60253 ml Output Urine Total 850 ml 6320 ml # Voids 3 # Bowel Movements 0 0 Exam GENERAL: Alert, not in distress, cooperative HEAD: atraumatic, normocephalic, no bruises. EYES: BIRD, EOMI, anicteric, able to fully open and close eyelids SKIN: Skin color normal, turgor normal. No visible rashes or lesions. EAR, NOSE, MOUTH, THROAT: Lips, oral mucosa, tongue gums, oropharynx are moist , pink, no lesions. Ears normal appearance, no lesions. NECK: no jugulovenous distention; supple ROM normal. RESPIRATORY: Lungs clear to auscultation. Good diaphragmatic excursion. CARDIAC: normal S1 and S2; no rubs, murmurs, or gallops; regular rate and rhythm ABDOMEN: Abdomen soft, tender. BS normal. No masses or organomegaly. MUSCULOSKELETAL: ROM full, muscles are not tender EXTREMITIES: no pitting edema in LE, no new deformities or skin discoloration. NEURO: Alert, oriented X 3, Sensation grossly intact., Cranial nerves II-XII intact, Grossly normal motor function. PULSES: 2+ radial, 2+ carotid REVIEW OF SYSTEMS: GENERAL: + malaise, no fevers., SEE HPI HEENT: Negative for frequent or significant headaches All other reviewed and negative other than HPI. IVs and Medications Medications Reviewed: Medications were reviewed in detail Lab and Diagnostics Result Diagram: 02/23/170 02/23/17 0440 Microbiology Blood cultures pending X-Rays, CTs and MRIs Date of Service: 02/19/17 1222 PROCEDURE: CT ABDOMEN AND PELVIS WITH CONTRAST IMPRESSION: 1. Interval development of mild interstitial edematous pancreatitis, without acute peripancreatic fluid collections. 2. Multiple small dependent calcified gallstones as before. Gallbladder hydrops is also now present, which may reflect gallbladder outlet obstruction and incipient acute cholecystitis, versus a fasting state. 3. Persistent bilateral hydroureteronephrosis, probably secondary to vesicoureteral reflux. 2.9 cm right bladder diverticulum as before. 4. Ruiz colonic diverticulosis, without acute diverticulitis. 5. Small retrocardiac hiatal hernia as before. 6. Small fat containing periumbilical ventral hernia. Dictated by: Zachery Wolfe M.D. on 02/19/2017 at 14:13 Approved by: Zachery Wolfe M.D. on 02/19/2017 at 14:28 MR ABDOMEN MRCP IMPRESSION: 1. Study is degraded by patient motion and was terminated by the patient prior to obtaining dedicated MRCP images. 2. Enlarged gallbladder containing cholelithiasis with pericholecystic fluid most consistent with acute cholecystitis. 3. No intra-or extrahepatic hepatic bile duct dilatation. Grossly there is no choledocholithiasis although imaging is limited by motion and lack of MRCP images. 4. Peripancreatic edema consistent with pancreatitis. Dictated by: Michael Hand M.D. on 02/19/2017 at 17:31 Approved by: Michael Hand M.D. on 02/19/2017 at 17:43 . Cardiac Echo Impressions Interpretation Summary The ejection fraction is estimated to be 60-65%. There are no obvious focal wall motion abnormalities noted but poor endocardial definition reduces the sensitivity for the detection of such. Electronically signed by: Han Nunez on Reading Physician:02/21/2017 10:33 AM . Additional Diagnostics NM HIDA SCAN WITHOUT CCK IMPRESSION: 1. Nonfilling of gallbladder consistent with cystic duct obstruction. This finding is highly compatible with acute cholecystitis. 2. Patent common bile duct. No evidence for biliary obstruction. 3. Reflux of bile into the stomach. Dictated by: Anastacio Bales M.D. on 02/20/2017 at 16:36 Approved by: Anastacio Bales M.D. on 02/20/2017 at 16:39 . 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 Per surgery they will likely defer cholecystitis until 02/24 in order to have 5 days off of plavix and for his pancreatitis to calm down. The patient will be maintained NPO with ice chips until that time. There was an extensive goals of care discussion conducted with the patient, his spouse, and daughter; essentially they elected to convert the patient to DNR/DNI following his anticipated surgery on 02/24/17. Acute pancreatitis. Acute cholecystitis - Improving - MRCP not indicative of choledocholithiasis Plan - NPO per GI recommendations - Continue with supportive care including IVF, anti-emetics, and pain control with IV Morphine as needed - Continue with antibiotics - Cholecystectomy on Saturday Hypertension - Stable blood pressures are higher side Plan - Continue with current meds History of coronary artery disease - stable - Continue with home BP meds - Continue with home dose ASA - Hold home dose Plavix at least for now - Hold Statin for now given elevated LFTs T3 N0 bladder cancer, present on admission. - Will defer further followup and management to oncology as outpatient for now. - Dr Evans has been made aware of the patient's admission - does not recommend Neupogen at this time for neutropenia Recent severe neutropenia post chemotherapy s/p Neupogen 480 mcg subcutaneously x 1 dose on 02/16/17 - Currently improved and only mild leukopenia and anemia persisting - Followup closely as these improved values may be due to hemoconcentration Chronic pruritic rash - Improved - Currently denies any significant pruritus and no rash noted on exam Diabetes type 2 - Stable - Hold home Metformin - Cover with ISS for now DVT PROPHYLAXIS: Heparin Code status: Patient would like to be full code for now. Disposition: discharge after patient improves. Plan of care discussed with treatment team; Labs, radiology tests reviewed. Plan of care, medication side effects, home medication, diagnostic procedures and available alternatives were discussed and reviewed with patient/family. All questions answered. Patient/family verbalized understanding, approved and agreed to plan of care. GI Prophylaxis: Proton Pump Inhibitor VTE Prophylaxis: Sub-Q Heparin (Unfractionated) Resuscitation Status: CPR: Attempt Resuscitation (discussed and verified with patient) Phi Zheng MD Feb 23, 2017 10:32
[2017-02-23] MEDS: Ondansetron 2 mg/mL 2 mL Inj IVPUSH PRN (10:39)
[2017-02-23] MEDS: 0.9% Sodium Chloride 250 ML IV SCH (15:35)
[2017-02-23] MEDS ORDERED: Magnesium Sulf 4 Gm/100 mL H2O 4 GM in IV Premix 1 EACH IV ONE (18:20)
[2017-02-24] VITALS (11 sets, daily range): BP systolic 131–164; BP diastolic 64–87; PULSE 59–91; RESP 14–18; O2SAT 97–100
[2017-02-24] MEDS: Heparin 5,000 Unit/mL Inj SUBQ SCH ×3 (01:11→17:20)
[2017-02-24] MEDS: Piperacillin-Tazo 3.375 Gm Inj 3.375 GM in Dextrose 5% Minibag Plus 50 ML IV SCH ×3 (04:30→20:50)
[2017-02-24] MEDS: Dextrose 5% 0.9% NaCl 1,000 ML IV SCH ×3 (04:33→18:23)
[2017-02-24 07:03] LABS: BASOPHILS % (AUTO) 0.1 % (0-3); EOSINOPHILS % (AUTO) 0.6 % (0-5); MONOCYTES % (AUTO) 19.5 % (4-12); Mean Corpuscular Hemoglobin 29.2 pg (27.0-35.0); Mean Corpuscular Volume 88.7 fL (81-100); Platelet Count 558 bil/L (150-400)
[2017-02-24 07:31] LABS: TROPONIN T 0.022 ug/L (0.0-0.011)
[2017-02-24 07:42] LABS: Magnesium 2.2 mg/dL (1.6-2.6); Phosphorus 2.5 mg/dL (2.5-4.9)
[2017-02-24] MEDS: Insulin LISPRO Low-Dose Scale SUBQ SCH ×4 (07:49→22:00)
[2017-02-24] MEDS ORDERED: Sodium-Potassium Phosphorus Packet PO ONE (08:05)
[2017-02-24] MEDS ORDERED: KCl 40 mEq/100 mL (CENTRAL) 40 MEQ in IV Premix 1 EACH IV ONE ×2 (08:30→13:30)
[2017-02-24] MEDS: Pantoprazole 40 mg ER24 Tablet PO SCH ×2 (09:25→17:19)
[2017-02-24] MEDS: Isosorbide Mononitrate 30 mg ER24 Tablet PO SCH (09:27)
[2017-02-24] MEDS ORDERED: 0.9% Sodium Chloride 250 ML IV SCH (09:35)
--- NOTE | 2017-02-24 10:03 | PCM.PNSURG ---
Subjective Date of Service: Feb 24, 2017 Visit Information: Cholecystitis, Coronary artery disease Date of Admission: Feb 19, 2017 at 15:35 Hospital Day # 6 Subjective: Episode of tachycardia and chest pain overnight, Now feeling better Abdomen feeling better, steaming cabinet tender. Objective Vital Sign- Last 8 Hours Date Time Temp Pulse Resp B/P Pulse Ox O2 Delivery O2 Flow Rate FiO2 02/24/17 09:38 91 02/24/17 08:36 37.6 83 14 144/87 99 Nasal Cannula 4.00 02/24/17 05:59 37.1 78 18 164/87 100 Nasal Cannula 6.00 Intake and Output- Last 8 Hour 02/24/17 Cumulative From/Thru 07:00 02/19/17 12:14 - 02/24/17 05:59 Intake Total 1433 ml 84279 ml Output Total 675 ml 7395 ml Balance 758 ml 7026 ml Intake Oral 0 ml 1620 ml IV Total 1433 ml 08302 ml Output Urine Total 675 ml 7395 ml # Voids 7 # Bowel Movements 0 0 Abdomen: Soft (tender in RUQ) Result Diagram: 02/24/17 0840 02/24/17 0644 Assessment & Plan Impression Cholecystitis with CAD Problems: Plan Discussed case with Dr. Raya from Cardiology & Dr. Zheng Transfusion and Correction of electrolyte abnormalities today Will postpone cholecystectomy for tomorrow - D/W Dr. Mills Continue IV Antibiotics, NPO at midnight Hector Shelley MD Feb 24, 2017 10:03
--- NOTE | 2017-02-24 10:11 | CONS ---
[address] [address] CONSULTATION REPORT PATIENT: RANDY DRISCOLL : 1935 MR#: [id number] ADMIT: 02/19/2017 JOB ID: [id number] DATE OF SERVICE: 02/24/2017 I was asked by Dr. Shelley to see the patient emergently this morning due to symptoms of angina and an abnormal troponin prior to anticipated gallbladder surgery this morning. HISTORY OF PRESENT ILLNESS: The patient was admitted to [facility] five days ago on February 19 with acute gallstone pancreatitis and cholecystitis. He has been treated medically over the past five days as his Plavix was discontinued and his hope was to be able to take him to surgery this morning. Yesterday afternoon about 3 o'clock he complained of symptoms of chest discomfort and was thought to be in atrial flutter, although review of his EKG shows sinus tachycardia with occasional PACs without diagnostic ST-segment changes. He was treated with nitrates and morphine with improvement. Troponin levels were drawn and his troponin at 6 p.m. three hours after the event was indeterminate at 0.021. Subsequent troponins 0.016, 0.018, and 0.022. There is a subtle variation in troponins, but nothing diagnostic. This morning he is examined along briefly with Dr. Shelley and the surgical team notes that his abdomen is less tender today. I interviewed him through a video stringed instrument repairer and since he is non-Wolof speaking and the patient is a difficult historian he is hard of hearing and provides fairly vague answers, but suggests that he has not had recurrent anginal chest discomfort. He does state that he feels somewhat short of breath and has a deep rhonchorous cough. Review of his hospital records show that on telemetry for the and of this month before he was taken off telemetry he had sinus rhythm with paroxysms of sinus tachycardia, which I think are consistent with intermittent colic pain and discomfort. He has been admitted to the hospital on several occasions in the past year with anginal chest discomfort and in February of last year was taken to the catheterization laboratory. Coronary angiography at that time showed moderate diffuse coronary disease as expected in an individual his age with diabetes. He has a couple of small diagonal vessels, which have significant lesions and a posterolateral branch fills by collateral filling, but the origin of this vessel was never clearly identified, and I suspect it relates to a distal circumflex vessel. His right coronary artery was large and supplies a large PDA and posterolateral branch and had moderately severe diffuse disease proximal to the PDA which was stented. He also has a history of previous LAD stent and on review of the records it looks like this is probably sometime around 2005 and most likely done in [place]. Again it is history is quite difficult I cannot really gauge what his overall exercise tolerance is and whether he develops exertional angina at home. PAST MEDICAL HISTORY: Notable for recent diagnosis of high-grade invasive papillary bladder cancer and with recent institution of chemotherapy with carboplatin and gemcitabine. He received his first dose of chemotherapy. He saw us fairly recently with a substantial drop in his hematocrit and hemoglobin over the past month as a result. PAST MEDICAL HISTORY: Also includes a previous upper GI bleed, chronic type 2 diabetes, non-insulin dependent. There is a reported history of CVA. He has a history of chronic hypertension. He has a history of known peripheral arterial disease with carotid ultrasound in July of this year showing high-grade stenosis involving the left internal carotid artery and moderately severe disease involving the right internal carotid artery. He also has a history of COPD. MEDICATIONS ON ADMISSION: 1. Amlodipine 2.5 mg b.i.d. 2. Aspirin 81 mg daily. 3. Clopidogrel 75 mg daily. 4. Atorvastatin 10 mg daily. 5. Isosorbide mononitrate 60 mg daily. 6. Metformin 500 mg daily. 7. Metoprolol tartrate 25 mg twice a day. 8. Sublingual nitroglycerin as needed. 9. Tramadol as needed. SOCIAL HISTORY: The patient moved from [place] three to four years ago to live with his family here. He is a former smoker. REVIEW OF SYSTEMS: Quite challenging. Complete review of systems is not possible. PHYSICAL EXAMINATION: Shows elderly edentulous Albanian speaking male who does not appear in acute distress. HEENT examination is notable for the absence of scleral icterus. He does not have any teeth. Neck is difficult to examine. His central venous pressure cannot be estimated. His carotid upstroke is normal in amplitude and upstroke velocity. He has bilateral carotid bruits audible. He also has a grade 3/6 systolic ejection murmur at the left upper sternal border radiating to the carotids. I do not hear diastolic murmur. Abdomen is not otherwise examined. Distal extremities are warm and well perfused without edema. Right pedal pulses are faintly palpable. I do not feel pulses on the left. No obvious gross neurologic findings seen. He is awake. Appears to be alert and oriented, but again exam is hampered by language even with excellent video stringed instrument repairer present. CURRENT LABORATORY: Notable for fairly severe anemia with a hemoglobin today of 7.5 and hematocrit of 22.8, platelet count is 558,000. His chemistries are abnormal with a potassium at 3.0. BUN and creatinine are low. Blood sugar is mildly elevated. Troponins are nonspecific as mentioned. LFTs on admission were significantly elevated, but are improved. Serum lipase was also quite high and has markedly improved. Chest x-ray has not been obtained. IMPRESSION: 1. Coronary artery disease: This patient has chronic ischemic heart disease with small vessel disease, and I think a posterolateral branch which fills by collateral circulation. He has been off Plavix for five days, but his current symptoms do not reflect stent thrombosis or an acute coronary syndrome and simply represents a stress related myocardial ischemia due to severe anemia and the stress of his acute illness. At this point, I would recommend that he be transfused with at least a couple of units of packed red blood cells prior to surgery to reduce his risks. His hemoglobin should be probably kept above 9 if possible. group home, I think he would benefit from an increase in his beta kaci medications, nitrates, and statin therapy and probably should be on an RAFFY inhibitor if he has not been on an RAFFY inhibitor previously. I will follow up with his care and make further recommendations and will ask my partner to follow up prior to his hospital discharge to ensure that he is on appropriate cardiac medications. I have spoken with Dr. Shleley and his team regarding these recommendations and will check back with his progress tomorrow either myself or one of my associates. 2. Acute gallstone pancreatitis. 3. Invasive papillary bladder cancer with recent initiation a chemotherapy. 4. Severe anemia progressed over the last month related to his chemo likely. He does have a history of peptic ulcer disease and certainly want to make sure that he does not have recurrent gastrointestinal bleeding. 5. Peripheral arterial disease with high-grade left internal carotid artery stenosis and moderate right carotid stenosis. 6. Echocardiographic and clinical examination consistent with moderate aortic stenosis. 7. Chronic hypertension. 8. [id number] diabetes. I appreciate the opportunity of seeing this patient and will be happy to assist further with his care in the coming days.
--- NOTE | 2017-02-24 13:39 | PCM.PNMED ---
Subjective Date of Service Feb 24, 2017 Subjective Patient is in bed, chest pain improved, patient is complaining of intermittent back pain, pain in the right breast. His hemoglobin decreased below 8. I discussed that with the surgery, they advised to transfuse the patient reaches reasonable as he has coronary artery disease and intermittent chest pain secondary to it, elevated troponin. Potassium is low today can, well replenished with IV potassium, phosphorus as low, we will add by mouth phosphorus. Exam Vital Signs Vital Sign - Last Date Time Temp Pulse Resp B/P Pulse Ox O2 Delivery O2 Flow Rate FiO2 02/24/17 12:40 37.2 59 16 131/67 02/24/17 12:17 97 Nasal Cannula 4.00 Intake and Output 02/23/17 02/23/17 02/24/17 Cumulative From/Thru 15:00 23:00 07:00 02/19/17 12:14 - 02/24/17 05:59 Intake Total 50 ml 0 ml 1433 ml 58118 ml Output Total 400 ml 675 ml 7395 ml Balance 50 ml -400 ml 758 ml 7026 ml Intake Oral 50 ml 0 ml 0 ml 1620 ml IV Total 1433 ml 79875 ml Output Urine Total 400 ml 675 ml 7395 ml # Voids 4 7 # Bowel Movements 0 0 0 Exam GENERAL: Alert, not in distress HEAD: atraumatic, normocephalic EYES: BIRD, EOMI, anicteric, able to fully open and close eyelids SKIN: Skin color normal, turgor normal. No visible rashes or lesions. EAR, NOSE, MOUTH, THROAT: Lips, oral mucosa, tongue are moist, pink, no lesions. NECK: no jugulovenous distention; supple ROM normal. RESPIRATORY: Lungs clear to auscultation. Good diaphragmatic excursion. CARDIAC: normal S1 and S2; no rubs, murmurs, or gallops; regular rate and rhythm ABDOMEN: Abdomen soft, tender. BS normal. No masses or organomegaly. MUSCULOSKELETAL: ROM full, muscles are not tender, R wrist mildly swollen , painful to palpation EXTREMITIES: no pitting edema in LE, no new deformities or skin discoloration. NEURO: Alert, oriented X 3, Sensation grossly intact., Cranial nerves II-XII intact, Grossly normal motor function. PULSES: 2+ radial, 2+ carotid REVIEW OF SYSTEMS: GENERAL: + malaise, no fevers., SEE HPI HEENT: Negative for frequent or significant headaches All other reviewed and negative other than HPI. Lab and Diagnostics Result Diagram: 02/24/17 0840 02/24/17 0644 Microbiology Blood cultures pending X-Rays, CTs and MRIs Date of Service: 02/19/17 1222 PROCEDURE: CT ABDOMEN AND PELVIS WITH CONTRAST IMPRESSION: 1. Interval development of mild interstitial edematous pancreatitis, without acute peripancreatic fluid collections. 2. Multiple small dependent calcified gallstones as before. Gallbladder hydrops is also now present, which may reflect gallbladder outlet obstruction and incipient acute cholecystitis, versus a fasting state. 3. Persistent bilateral hydroureteronephrosis, probably secondary to vesicoureteral reflux. 2.9 cm right bladder diverticulum as before. 4. Ruiz colonic diverticulosis, without acute diverticulitis. 5. Small retrocardiac hiatal hernia as before. 6. Small fat containing periumbilical ventral hernia. Dictated by: Zachery Wolfe M.D. on 02/19/2017 at 14:13 Approved by: Zachery Wolfe M.D. on 02/19/2017 at 14:28 MR ABDOMEN MRCP IMPRESSION: 1. Study is degraded by patient motion and was terminated by the patient prior to obtaining dedicated MRCP images. 2. Enlarged gallbladder containing cholelithiasis with pericholecystic fluid most consistent with acute cholecystitis. 3. No intra-or extrahepatic hepatic bile duct dilatation. Grossly there is no choledocholithiasis although imaging is limited by motion and lack of MRCP images. 4. Peripancreatic edema consistent with pancreatitis. Dictated by: Michael Hand M.D. on 02/19/2017 at 17:31 Approved by: Michael Hand M.D. on 02/19/2017 at 17:43 . Cardiac Echo Impressions Interpretation Summary The ejection fraction is estimated to be 60-65%. There are no obvious focal wall motion abnormalities noted but poor endocardial definition reduces the sensitivity for the detection of such. Electronically signed by: Han Nunez on Reading Physician:02/21/2017 10:33 AM . Additional Diagnostics NM HIDA SCAN WITHOUT CCK IMPRESSION: 1. Nonfilling of gallbladder consistent with cystic duct obstruction. This finding is highly compatible with acute cholecystitis. 2. Patent common bile duct. No evidence for biliary obstruction. 3. Reflux of bile into the stomach. Dictated by: Anastacio Bales M.D. on 02/20/2017 at 16:36 Approved by: Anastacio Bales M.D. on 02/20/2017 at 16:39 . 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 Per surgery they will likely defer cholecystitis until 02/24 in order to have 5 days off of plavix and for his pancreatitis to calm down. The patient will be maintained NPO with ice chips until that time. There was an extensive goals of care discussion conducted with the patient, his spouse, and daughter; essentially they elected to convert the patient to DNR/DNI following his anticipated surgery on 02/24/17. Acute pancreatitis. Acute cholecystitis - Improving - MRCP not indicative of choledocholithiasis Plan - liquid diet - Continue with supportive care including IVF, anti-emetics, and pain control with IV Morphine as needed - Continue with antibiotics - Cholecystectomy soon Coronary artery disease. Stable angina. Paroxysmal A-fib. - stable - Troponin elevated - patient is on ASA for CVA prophylaxis. Plan - Continue with home BP meds - Hold home dose Plavix at least for now for planed surgery - Hold Statin for now given elevated LFTs - rate control Hypokalemia, low phosphorus - We will replace - Monitor Anemia - Worsening - I discussed risks and benefits of blood product transfusion the patient. The risks of severe allergic reactions, possible lung damage, possibly hepatitis B, C, HIV were discussed in details. Patient consented to blood product transfusion Plan - Transfuse with 2 units of RBC - Monitor CBC Hypertension - Stable blood pressures are higher side Plan - Continue with current meds T3 N0 bladder cancer, present on admission. - Will defer further followup and management to oncology as outpatient for now. - Dr Evans has been made aware of the patient's admission - does not recommend Neupogen at this time for neutropenia Recent severe neutropenia post chemotherapy s/p Neupogen 480 mcg subcutaneously x 1 dose on 02/16/17 - Currently improved and only mild leukopenia and anemia persisting - Followup closely as these improved values may be due to hemoconcentration Chronic pruritic rash - Improved - Currently denies any significant pruritus and no rash noted on exam Diabetes type 2 - Stable - Hold home Metformin - Cover with ISS for now DVT PROPHYLAXIS: Heparin Code status: Patient would like to be full code for now. Disposition: discharge after patient improves. Plan of care discussed with treatment team; Labs, radiology tests reviewed. Plan of care, alternatives were discussed and reviewed with patient/family. All questions answered. Patient/family verbalized understanding, approved and agreed to plan of care. GI Prophylaxis: Proton Pump Inhibitor Phi Zheng MD Feb 24, 2017 13:39
--- NOTE | 2017-02-24 14:14 | PCM.PNMED ---
Subjective Date of Service Feb 24, 2017 Subjective very mild abdominal pain had large non blood BM today no nausea or vomiting Exam Vital Signs Vital Sign - Last Date Time Temp Pulse Resp B/P Pulse Ox O2 Delivery O2 Flow Rate FiO2 02/24/17 12:40 37.2 59 16 131/67 02/24/17 12:17 97 Nasal Cannula 4.00 Intake and Output 02/23/17 02/23/17 02/24/17 Cumulative From/Thru 15:00 23:00 07:00 02/19/17 12:14 - 02/24/17 05:59 Intake Total 50 ml 0 ml 1433 ml 67153 ml Output Total 400 ml 675 ml 7395 ml Balance 50 ml -400 ml 758 ml 7026 ml Intake Oral 50 ml 0 ml 0 ml 1620 ml IV Total 1433 ml 34200 ml Output Urine Total 400 ml 675 ml 7395 ml # Voids 4 7 # Bowel Movements 0 0 0 Exam GEN0 no apparent distress abdomen- soft, non distended, epigastric and RUQ tenderness Lab and Diagnostics Result Diagram: 02/24/17 0840 02/24/17 0644 Microbiology Blood cultures pending X-Rays, CTs and MRIs Date of Service: 02/19/17 1222 PROCEDURE: CT ABDOMEN AND PELVIS WITH CONTRAST IMPRESSION: 1. Interval development of mild interstitial edematous pancreatitis, without acute peripancreatic fluid collections. 2. Multiple small dependent calcified gallstones as before. Gallbladder hydrops is also now present, which may reflect gallbladder outlet obstruction and incipient acute cholecystitis, versus a fasting state. 3. Persistent bilateral hydroureteronephrosis, probably secondary to vesicoureteral reflux. 2.9 cm right bladder diverticulum as before. 4. Ruiz colonic diverticulosis, without acute diverticulitis. 5. Small retrocardiac hiatal hernia as before. 6. Small fat containing periumbilical ventral hernia. Dictated by: Zachery Wolfe M.D. on 02/19/2017 at 14:13 Approved by: Zachery Wolfe M.D. on 02/19/2017 at 14:28 MR ABDOMEN MRCP IMPRESSION: 1. Study is degraded by patient motion and was terminated by the patient prior to obtaining dedicated MRCP images. 2. Enlarged gallbladder containing cholelithiasis with pericholecystic fluid most consistent with acute cholecystitis. 3. No intra-or extrahepatic hepatic bile duct dilatation. Grossly there is no choledocholithiasis although imaging is limited by motion and lack of MRCP images. 4. Peripancreatic edema consistent with pancreatitis. Dictated by: Michael Hand M.D. on 02/19/2017 at 17:31 Approved by: Michael Hand M.D. on 02/19/2017 at 17:43 . Cardiac Echo Impressions Interpretation Summary The ejection fraction is estimated to be 60-65%. There are no obvious focal wall motion abnormalities noted but poor endocardial definition reduces the sensitivity for the detection of such. Electronically signed by: Han Nunez on Reading Physician:02/21/2017 10:33 AM . Additional Diagnostics NM HIDA SCAN WITHOUT CCK IMPRESSION: 1. Nonfilling of gallbladder consistent with cystic duct obstruction. This finding is highly compatible with acute cholecystitis. 2. Patent common bile duct. No evidence for biliary obstruction. 3. Reflux of bile into the stomach. Dictated by: Anastacio Bales M.D. on 02/20/2017 at 16:36 Approved by: Anastacio Bales M.D. on 02/20/2017 at 16:39 . Assessment & Plan Acute Cholecystitis -cholecystectomy as per surgery, -cont IV antibiotics -keep NPO Acute Pancreatitis -resolving -recommend IOC during cholecystectomy to rule out CBD stones -no evidence of CBD stones on CT, MRI and HIDA Anemia -no clinical evidence of GI bleeding -follow H/H and transfuse as needed GI Prophylaxis: Proton Pump Inhibitor Rolf Chase MD Feb 24, 2017 14:14
[2017-02-24] MEDS: 0.9% Sodium Chloride 250 ML IV SCH (15:38)
[2017-02-24] MEDS: Ondansetron 2 mg/mL 2 mL Inj IVPUSH PRN (20:54)
[2017-02-25] VITALS (11 sets, daily range): BP systolic 142–178; BP diastolic 59–80; PULSE 64–102; RESP 18–32; O2SAT 90–100
[2017-02-25] MEDS: Heparin 5,000 Unit/mL Inj SUBQ SCH ×3 (01:28→16:39)
[2017-02-25] MEDS: Piperacillin-Tazo 3.375 Gm Inj 3.375 GM in Dextrose 5% Minibag Plus 50 ML IV SCH ×3 (04:57→19:51)
[2017-02-25 07:20] LABS: Mean Corpuscular Volume 86.4 fL (81-100)
[2017-02-25] MEDS: Pantoprazole 40 mg ER24 Tablet PO SCH ×2 (07:30→16:39)
[2017-02-25] MEDS ORDERED: fentaNYL-PF 50 mCg/mL 2 mL Inj ONE (07:50)
[2017-02-25] MEDS ORDERED: Glycopyrrolate 0.2 MG/ML 1mL Inj ONE (07:50)
[2017-02-25] MEDS ORDERED: Ondansetron 2 mg/mL 2 mL Inj ONE (07:50)
[2017-02-25] MEDS ORDERED: MeTOProlol 1 mg/mL 5 mL Inj ONE (07:50)
[2017-02-25] MEDS ORDERED: Neostigmine 1 mg/mL 10 mL Inj ONE (07:50)
[2017-02-25] MEDS ORDERED: Phenylephrine/NS 100 mCg/mL 10 mL Syringe IVPUSH ONE (07:50)
[2017-02-25] MEDS ORDERED: Propofol 10,000 mCg/mL 20 mL Inj ONE (07:50)
[2017-02-25] MEDS ORDERED: Rocuronium 10 mg/mL 5 mL Inj ONE (07:50)
[2017-02-25] MEDS: Insulin LISPRO Low-Dose Scale SUBQ SCH ×4 (08:00→22:00)
[2017-02-25] MEDS: Isosorbide Mononitrate 30 mg ER24 Tablet PO SCH (08:30)
--- NOTE | 2017-02-25 08:55 | PCM.PNSURG ---
Subjective Date of Service: Feb 25, 2017 Date of Service: Feb 25, 2017 Visit Information: Reason for Visit Pancreatis Surgery/Surgery Date planned for 02/25 Date of Admission: Feb 19, 2017 at 15:35 Hospital Day # Subjective: Subjective: Patient continues with abdominal pain in the same regions as previous. Surgery postponed due to low blood count and concern for increased ischemic demand noted on labs 02/24, patient transfused 2 units of blood. Currently denies chest pain. Patient also reports pain in the neck which she attributes to bed positioning. Events Overnight: No acute events overnight. ROS: Neck pain, Abdominal pain Denies fever/chills, nausea/vomiting, headache, weakness, chest pain, shortness of breath, increased swelling in hands or feet. Objective Objective General: No acute distress, well-developed, well-nourished Head: Normocephalic, atraumatic. External ears without defect. Eyes: Pupils equal, round, and reactive to light and accommodation. Anicteric sclerae, moist conjunctivae. Neck: Normal range of motion, no lymphadenopathy noted Cardiovascular: Regular rate and rhythm with no murmurs, rubs, or gallops appreciated Pulmonary: Clear to auscultation bilaterally with no crackles, wheezes, or rhonchi. Port catheter in place Abdomen: Bowel tones present. Soft, nondistended. Tender to palpation of the mid to lower abdomen especially of the left lower quadrant. Right upper quadrant tenderness, Garcia's sign positive. Extremities: No clubbing, cyanosis, edema Skin: Normal temperature, turgor, and texture; no rash, ulcers, or subcutaneous nodules appreciated. Neurological: Cranial nerves grossly intact. Reflexes, coordination, and sensory function within normal limits. Normal muscle strength, tone, and bulk. Psychiatric: Normal mood and affect. Alert and oriented to person, place, and time Vital Sign- Last 8 Hours Date Time Temp Pulse Resp B/P Pulse Ox O2 Delivery O2 Flow Rate FiO2 02/25/17 04:58 36.9 77 18 163/78 94 Nasal Cannula 6.00 Intake and Output- Last 8 Hour 02/25/17 Cumulative From/Thru 07:00 02/19/17 12:14 - 02/25/17 05:36 Intake Total 1320 ml 68338 ml Output Total 7395 ml Balance 1320 ml 77978 ml Intake Oral 100 ml 1990 ml IV Total 1220 ml 85787 ml Packed Cells 600 ml Output Urine Total 7395 ml # Voids 1 9 # Bowel Movements 0 1 Result Diagram: 02/25/17 0716 02/25/17 0716 Assessment & Plan Impression 81-year-old male with complicated past medical history including recent diagnosis of bladder cancer post one cycle chemotherapy presents with abdominal pain secondary to pancreatitis and cholecystitis Problems: Plan Continue Abx NPO other than sips of clears Hemoglobin and troponin stable Ambulate with PT Lap Simin with grams scheduled for 02/25 Resuscitation Status: CPR: Attempt Resuscitation ,Bola Raza DO Feb 25, 2017 08:55
[2017-02-25] MEDS ORDERED: Phenylephrine 10,000 mCg/mL Inj IVPUSH PRN (09:45)
[2017-02-25] MEDS ORDERED: Labetalol 5 mg/mL 20 mL Inj IV PRN (09:45)
[2017-02-25] MEDS ORDERED: Lactated Ringer's 500 ML IV PRN (09:45)
[2017-02-25] MEDS ORDERED: EPHEDrine Sulfate 50 mg/mL Inj IVPUSH PRN (09:45)
[2017-02-25] MEDS ORDERED: Ondansetron 2 mg/mL 2 mL Inj IVPUSH PRN (09:45)
[2017-02-25] MEDS ORDERED: MetoCLOpramide 5 mg/mL 2 mL Inj IVPUSH PRN (09:45)
[2017-02-25] MEDS ORDERED: Atropine 0.4 mg/mL Inj IVPUSH PRN (09:45)
[2017-02-25] MEDS ORDERED: HYDROmorphone 1 mg/mL Inj IVPUSH PRN (09:45)
[2017-02-25] MEDS ORDERED: Lactated Ringer's 1,000 ML IV SCH (09:45)
--- NOTE | 2017-02-25 09:45 | PCM.HPANE ---
Patient Data Surgeon Admitting Provider:aRvinder Hernandez Attending Provider:Phi Zheng MD Primary Care Physician:Traci Samuel PA-C Other Provider:Daija Perez Anesthesia Reason for Visit Pancreatis PANCREATIS Ht/WT & BMI Height (Feet): 5 Height (Inches): 6.00 Weight (Kilograms): 83.400 Body Mass Index 29.44 Allergies Coded Allergies: No Known Allergies (Verified Allergy, Unknown, 02/19/17) Past Anesthesia History Anesthesia History: Denies:: Abnormal Airway, Anesthesia Reactions, Difficult Intubation, Malignant Hyperthermia Additional Information: Information obtained through [employer]. Diabetes History Hx Diabetes?: Yes Type of Diabetes: Type II Glycemic Control: Oral Medication Current Bedside Blood Glucose: 133 MRSA MRSA: No Medications Blood Thinner: Aspirin Last Dose Blood Thinner: Feb 20, 2017 Hypertension Medication: Yes Home Meds Incl Beta [place]il[place]: Yes Previous Beta [place]il[place] Dose >24: Previous Dose <24 Hours Active Scripts Atorvastatin Calcium 10 Mg Mitbyn34 Mg PO HS #30 TABLET Ref 5 Prov:Reagan Lopez DO 03/12/16 Aspirin Chew 81 Mg Chew81 Mg PO DAILY 90 Days Prov:Ravinder Hernandez 03/07/16 Reported Medications Ondansetron 8 Mg Tablet8 Mg PO BID PRN For Nausea #30 02/19/17 Isosorbide MN ER 30 Mg Tab.er.24h60 Mg PO QAM #180 02/19/17 Clopidogrel 75 Mg Izicap33 Mg PO DAILY Ref 0 01/19/17 Tramadol 50 Mg Arzycy57 Mg PO BID PRN For Pain Ref 0 06/12/16 Metoprolol Tartrate 25 Mg Bovuwq31 Mg PO BID 30 Days Ref 0 06/12/16 Amlodipine 2.5 Mg Tablet2.5 Mg PO BID Ref 0 06/12/16 Dextran 70/Hypromellose/Pf (Artificial Tears Drops)1 Each Droperette1 Drop BOTH_ EYES BID PRN For Eye Irritation 02/22/16 Metformin 500 Mg Vrigod316 Mg PO DAILY 02/22/16 Nitroglycerin SL (Nitrostat)0.4 Mg Tab.subl0.4 Mg SL Q5MIN PRN For Chest Pain 08/31/15 Discontinued Reported Medications Isosorbide MN ER 60 Mg Tab.er.24h60 Mg PO DAILY 06/12/16 Phenazopyridine (Azo Urinary Pain Relief)97.5 Mg Tablet2 Each PO TID PRN urinary burning 02/22/16 History History of ENT Problems?: Yes HEENT History: Positive for:: Cataracts Denies:: Abnormal Airway Difficult Intubation Dysphagia Sinus Problem Denture Type: None Teeth Condition: Tooth Decay Missing Teeth Hx of Heart Problems?: Yes Cardiovascular History: Positive for:: Chest Pain Congestive Heart Failure (family says yes) Hypertension Valvular Heart Disease (echo 01/2017) Denies:: Cardiac Surgery (stents) Edema Heart Murmur Irregular Heartbeat Pacemaker Other Cardiac History: Moderate , preserved EF on most recent echo this admission, anemic, elevated TropI not deemed related to CAD Hx of Respiratory Problem?: Yes Respiratory History: Positive for:: Dyspnea Pneumonia ( past hx of) Denies:: COPD Chest Surgery Emphysema Oxygen Administration Tuberculosis Use of C-PAP Machine Hx Neurologic Problems?: Yes Neurological History: Positive for:: CVA (no residual) Dizziness (this admit) Denies:: Alzheimer's Disease Dementia Headaches Multiple Sclerosis Parkinson's Disease Seizures Other Neurological Pertinent: pt and family poor hisotrian Hx of GI Problems?: Yes Other GI Pertinent History: pt and family poor historian Hx of Problems?: Yes Genitourinary History: Positive for:: Kidney Stones Denies:: Urinary Tract Infection Male Hx: Positive for:: Prostate Problems (TURP x 2) Denies:: Scrotal Mass Testicular Surgery Skin History: Positive for:: History Skin Disorders? (pruritis) Denies:: Pressure Ulcers Hx Musculoskeletal Problems?: Yes Musculoskeletal History: Positive for:: Back Injury (chronic back pain) Denies:: Joint Replacement Musculoskeletal Trauma Hx of Psycho/Social Problems?: Yes Psycho Social History: Positive for:: Hx Depression Denies:: Anxiety Bipolar Disorder Hx Surgeries?: Yes (appy, TURPx2, r.eyeball enucleation, kira) Hx Any Other Health Problems?: Yes Other History: Positive for:: Cancer (bladder ca) Hospitalization (06/2015 PNEUMONIA) Denies:: Endocrine Disease Thyroid Disease History Blood Transfusions: Positive for:: Accept Blood Products? Denies:: Blood Transfuse Reaction Blood Transfusions Hx Diabetes: YesBedside Blood Glucose: 133 Hx Alcohol Use: Yes (Drinks 1 beer per month)Hx Substance Use: No Smoking Status: Former Smoker Have You Smoked inLast 12 mo: No Stop/Bang Treated for Sleep Apnea?: No Do You Have a CPAP Machine?: No S-Snoring: Do You Snore Loudly: No T-Tired: feel tired, fatigued: No O-Obsered: Observed not breath: No P-Blood Pressure: treated: Yes B- Body Mass Index > 35 kg/m2: No A- Age over 50: Yes N- Neck Large Circumference: No G- Gender Male: Yes NIA Total Score: 2 NIA Risk Assessment: High Risk, =/>3 Yes Risk Assessment Category Category 1A: Patient has history of documented sleep apnea, and HAS NOT received any narcotic, sedative or anesthesia administration during this stay. Category 1B: Patient has history of documented sleep apnea, and HAS received any narcotic , sedative or anesthesia administration during this stay Category 2: Patient has SUSPECTED Obstructive Sleep Apnea, and HAS received any narcotic , sedative or anesthesia administration during this stay. Category 3: Patient has SUSPECTED Obstructive Sleep Apnea and HAS NOT received narcotic, sedative or anesthesia administration during this stay. Category 4: Outpatient in Procedural Areas with known sleep apnea or who screen positive for High Risk via the STOP/BANG questionnaire. Exam Exam Vital Signs Vital Signs Date Time Temp Pulse Resp B/P Pulse Ox O2 Delivery O2 Flow Rate FiO2 02/25/17 04:58 36.9 77 18 163/78 94 Nasal Cannula 6.00 General Appearance: Alert, Oriented X3, Cooperative, Mild Distress HEENT/AIRWAY: MP 3 Lungs: Clear to Auscultation Heart: Regular Rate/Rhythm, Murmur (III/ systolic murmur) Meds/Labs/Diagnostics Admission Meds Current Medications Sodium Chloride (Normal Saline) 250 ml @ 10 mls/hr Q24H IV Last administered on 02/24/17t 12:17; Start 02/24/17 at 09:35 Bedside Blood Glucose: 133 Labs Test 02/19/17 14:10 02/19/17 17:49 02/20/17 03:17 02/20/17 06:00 Urine Color Straw (YELLOW) Urine Appearance Hazy (CLEAR,HAZY) Urine pH 7.0 (5.0-8.0) Urine Specific [place] 1.020 (1.003-1.035) Urine Protein 100mg/dL (NEG,TRACE) Urine Glucose (UA) 100mg/dL (NEGATIVE) Urine Ketones Negativemg/dL (NEGATIVE) Urine Occult Blood Moderate (NEGATIVE) Urine Nitrite Negative (NEGATIVE) Urine Bilirubin Negative (NEGATIVE) Urine Urobilinogen Normalmg/dL (NORMAL) Urine Leukocyte Esterase Negative (NEGATIVE) Urine RBC 11-50/hpf (0-2) Urine WBC 0-5/hpf (0-5) Urine Epithelial Cells Occasional/hpf (NONE-MOD) Urine Crystals None seen (NONE SEEN) Urine Bacteria Few/hpf (NONE-FEW) Urine Hyaline Casts None/lpf (NONE) Urine Granular Casts None seen (NONE SEEN) Urine Waxy Casts None seen (NONE SEEN) Urine Red Blood Cell Casts None seen (NONE SEEN) Urine White Blood Cell Casts None seen (NONE SEEN) Urine Mucus None seen (None Seen) Urine Trichomonas None seen (NONE SEEN) Urine Yeast None (NONE SEEN) Urinalysis Comment None Urine Culture Reflexed Not indicated Hemoglobin A1c 6.8% (4.8-5.6) Metamyelocytes % 2% (0-0) Activated Partial Thromboplast Time 30.8sec (22.8-33.0) Lactic Acid Level 1.3mmol/L (0.4-2.0) Test 02/22/17 04:32 02/23/17 04:40 02/23/17 21:42 02/24/17 06:44 Band Neutrophils % 6% (1-5) Procalcitonin 0.22ng/mL (0.00-0.08) Nucleated Red Blood Cells 1/100 WBC (0-24) Hematology Comments Prothrombin Time 10.7sec (8.1-12.5) Prothromb Time International Ratio 1.00ratio Lipase 61U/L (13-60) Hold Purple Top Tube Received (Received) Neutrophils (%) (Auto) 65.0% (40-74) Lymphocytes (%) (Auto) 10.8% (14-46) Monocytes (%) (Auto) 19.5% (4-12) Eosinophils (%) (Auto) 0.6% (0-5) Basophils (%) (Auto) 0.1% (0-3) Phosphorus Level 2.5mg/dL (2.5-4.9) Magnesium Level 2.2mg/dL (1.6-2.6) Test 02/25/17 07:16 White Blood Count 10.7th/mm3 (3.8-10.1) Red Blood Count 3.45mil/mm3 (4.40-5.80) Hemoglobin 10.0g/dL (13.8-17.2) Hematocrit 29.8% (41.0-50.0) Mean Corpuscular Volume 86.4fL (81-100) Mean Corpuscular Hemoglobin 29.0pg (27.0-35.0) Mean Corpuscular Hemoglobin Concent 33.6% (32.0-37.0) Red Cell Distribution Width 15.2% (12.3-15.4) Platelet Count 612bil/L (150-400) Sodium Level 141mEq/L (134-144) Potassium Level 3.7mEq/L (3.5-5.2) Chloride Level 105mEq/L (97-108) Carbon Dioxide Level 25mmol/L (18-29) Blood Urea Nitrogen 8mg/dL (8-27) Creatinine 1.04mg/dL (0.76-1.27) Estimat Glomerular Filtration Rate 72mL/min (>59) Glucose Level 138mg/dL (60-99) Calcium Level 7.8mg/dL (8.5-10.1) Total Bilirubin 0.6mg/dL (0.0-1.2) Aspartate Amino Transf (AST/SGOT) 21U/L (0-50) Alanine Aminotransferase (ALT/SGPT) 35U/L (0-44) Alkaline Phosphatase 196U/L (25-160) Troponin T 0.019ug/L (0.0-0.011) Total Protein 6.1g/dL (6.4-8.4) Albumin 3.2g/dL (3.4-5.0) Plan Impression Patient chart reviewed, patient interviewed and anesthestic plan with risks, benefits, and alternatives discussed, and informed consent obtained. NPO per Anesth. Guidelines: Yes ASA Physical Status: ASA4 Life Threatening Anesthetic Support Modalities: [place] Scope Anesthetic Plan: GA Bene/Risks/Altern/Consents: Yes HP Complete Prior to Induction: Yes Audie Herrera MD Feb 25, 2017 08:36
[2017-02-25] MEDS ORDERED: Lactated Ringer's 1,000 ML IV ONE (09:57)
[2017-02-25] MEDS ORDERED: Bupivacaine-MPF 0.5% 30 mL Inj INFILTRATE ONE (09:57)
[2017-02-25] MEDS: fentaNYL-PF 50 mCg/mL 2 mL Inj IVPUSH PRN ×4 (12:30→12:57)
--- NOTE | 2017-02-25 12:51 | PCM.ANEP1 ---
Post Anesthesia PACU Phase 1 Assessment Vital Signs Vital Signs Date Time Temp Pulse Resp B/P Pulse Ox O2 Delivery O2 Flow Rate FiO2 02/25/17 12:40 65 24 161/65 100 Simple Mask 7 02/25/17 12:35 66 29 162/65 100 Simple Mask 9 02/25/17 12:30 66 32 156/64 100 Simple Mask 9 02/25/17 12:25 37.1 151/61 02/25/17 08:45 Supplement Oxygen 02/25/17 04:58 36.9 77 18 163/78 94 Nasal Cannula 6.00 Anesthetic Administered: GA Level of Alertness: Awake, talking HULL's with Equal Strength: Yes Pain: Yes (slow titration of narcotics) Nausea or Vomiting: No CV Function & Hydration Stable: Yes Airway Device: Endotrachial Tube (extubated in OR) Oxygen Delivery: Simple Mask Lungs: Clear to Auscultation PACU Phase 2 Assessment Complications: No Follow up Care: N/A Patient Instructions Provided: N/A Audie Herrera MD Feb 25, 2017 12:51
[2017-02-25] MEDS ORDERED: HYDROmorphone 0.5 mg/0.5 mL iSecure Syringe ONE (13:13)
--- NOTE | 2017-02-25 13:29 | PCM.PALLBR ---
Palliative Brief Note Date of Service Feb 25, 2017 . Consultation request received from Dr. Watson. Chart reviewed in detail. In particular, reviewed Dr. Wtason's Care Management Progress Note of 02/22 which outlines patient and family wishes regarding advanced directive care. Specifically, decision was that patient would be full code through the time of his surgical procedure, but thereafter DNR/DNI/Limited interventions. If he deteriorated perioperatively/postoperatively then plan was to transition to comfort care. Palliative medicine will monitor situation and provide for consultation if needed in the coming days- otherwise agree with care plan as outlined by Dr. Watson. Robbie Tirado MD Feb 25, 2017 13:28
--- NOTE | 2017-02-25 14:06 | PCM.SURGPO ---
Immediate Operative Note Date of Surgery: Feb 25, 2017 Pre Operative Diagnosis Cholecystitis Post Operative Diagnosis Cholecystitis Procedure Laparoscopic cholecystectomy with intraoperative cholangiogram Surgeon and Supervisor Order Takers Surgeon: Robbie Mills MD Assistants: Ade Hernandez MD Findings 1. Acute cholecystitis 2. No abnormal cholangiogram findings, long cystic duct seen 3. Gallbladder with multiple stones, all stones spilled were removed with forceps and suction Complications There were no periprocedural complications identified. Surgical Specimen Removed: Yes (Gallbladder) Specimen sent to Pathology: Yes Anesthetic Administered: GA Grafts, Implants: None Output, Estimated Blood Loss: 10 Blood Admin during surgery: No Ade Hernandez MD Feb 25, 2017 14:06
--- NOTE | 2017-02-25 14:10 | PCM.PNMED ---
Subjective Date of Service Feb 25, 2017 Subjective Patient is in bed, chest pain improved, some neck pain is present probably secondary to positioning. Mild abdominal pain is present. Exam Vital Signs Vital Sign - Last Date Time Temp Pulse Resp B/P Pulse Ox O2 Delivery O2 Flow Rate FiO2 02/25/17 13:32 36.6 70 21 142/60 93 Nasal Cannula 3 Intake and Output 02/24/17 02/24/17 02/25/17 Cumulative From/Thru 15:00 23:00 07:00 02/19/17 12:14 - 02/25/17 05:36 Intake Total 2090 ml 1320 ml 02045 ml Output Total 7395 ml Balance 2090 ml 1320 ml 01736 ml Intake Oral 270 ml 100 ml 1990 ml IV Total 1220 ml 1220 ml 40790 ml Packed Cells 600 ml 600 ml Output Urine Total 7395 ml # Voids 1 1 9 # Bowel Movements 1 0 1 Exam GENERAL: Alert, not in distressve HEAD: atraumatic, normocephalic, no bruises. EYES: EOMI, anicteric, able to fully open and close eyelids SKIN: Skin color normal, turgor normal. No visible rashes or lesions. EAR, NOSE, MOUTH, THROAT: Lips, oral mucosa, tongue gums, oropharynx are moist , pink, no lesions. Ears normal appearance, no lesions. NECK: no jugulovenous distention; supple ROM normal. RESPIRATORY: Lungs clear to auscultation. Good diaphragmatic excursion. CARDIAC: normal S1 and S2; no rubs, murmurs, or gallops; regular rate and rhythm ABDOMEN: Abdomen soft, mildly tender. BS normal. No masses or organomegaly. MUSCULOSKELETAL: ROM full, muscles are not tender EXTREMITIES: no pitting edema in LE, no new deformities or skin discoloration. NEURO: Alert, oriented X , Sensation grossly intact., Cranial nerves II- XII intact, Grossly normal motor function. PULSES: 2+ radial, 2+ carotid REVIEW OF SYSTEMS: GENERAL: no malaise, no fevers., SEE HPI HEENT: Negative for frequent or significant headaches All other reviewed and negative other than HPI. Lab and Diagnostics Result Diagram: 02/25/17 0716 02/25/17 0716 Microbiology Blood cultures pending X-Rays, CTs and MRIs Date of Service: 02/19/17 1222 PROCEDURE: CT ABDOMEN AND PELVIS WITH CONTRAST IMPRESSION: 1. Interval development of mild interstitial edematous pancreatitis, without acute peripancreatic fluid collections. 2. Multiple small dependent calcified gallstones as before. Gallbladder hydrops is also now present, which may reflect gallbladder outlet obstruction and incipient acute cholecystitis, versus a fasting state. 3. Persistent bilateral hydroureteronephrosis, probably secondary to vesicoureteral reflux. 2.9 cm right bladder diverticulum as before. 4. Ruiz colonic diverticulosis, without acute diverticulitis. 5. Small retrocardiac hiatal hernia as before. 6. Small fat containing periumbilical ventral hernia. Dictated by: Zachery Wolfe M.D. on 02/19/2017 at 14:13 Approved by: Zachery Wolfe M.D. on 02/19/2017 at 14:28 MR ABDOMEN MRCP IMPRESSION: 1. Study is degraded by patient motion and was terminated by the patient prior to obtaining dedicated MRCP images. 2. Enlarged gallbladder containing cholelithiasis with pericholecystic fluid most consistent with acute cholecystitis. 3. No intra-or extrahepatic hepatic bile duct dilatation. Grossly there is no choledocholithiasis although imaging is limited by motion and lack of MRCP images. 4. Peripancreatic edema consistent with pancreatitis. Dictated by: Michael Hand M.D. on 02/19/2017 at 17:31 Approved by: Michael Hand M.D. on 02/19/2017 at 17:43 . Cardiac Echo Impressions Interpretation Summary The ejection fraction is estimated to be 60-65%. There are no obvious focal wall motion abnormalities noted but poor endocardial definition reduces the sensitivity for the detection of such. Electronically signed by: Han Nunez on Reading Physician:02/21/2017 10:33 AM . Additional Diagnostics NM HIDA SCAN WITHOUT CCK IMPRESSION: 1. Nonfilling of gallbladder consistent with cystic duct obstruction. This finding is highly compatible with acute cholecystitis. 2. Patent common bile duct. No evidence for biliary obstruction. 3. Reflux of bile into the stomach. Dictated by: Anastacio Bales M.D. on 02/20/2017 at 16:36 Approved by: Anastacio Bales M.D. on 02/20/2017 at 16:39 . 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 Acute pancreatitis. Acute cholecystitis - Improving - MRCP not indicative of choledocholithiasis - surgery 02/25/17 Plan - Continue with supportive care including IVF, anti-emetics, and pain control with IV Morphine as needed - Continue with antibiotics - Cholecystectomy Coronary artery disease. Stable angina. Paroxysmal A-fib. - stable - Troponin elevated - patient is on ASA for CVA prophylaxis. Plan - Continue with home BP meds - Hold home dose Plavix at least for now for planed surgery - Hold Statin for now given elevated LFTs - rate control Hypokalemia - improved - Monitor Anemia - improving after 2 u of RBC - I discussed risks and benefits of blood product transfusion the patient. The risks of severe allergic reactions, possible lung damage, possibly hepatitis B, C, HIV were discussed in details. Patient consented to blood product transfusion Plan - Monitor CBC Thrombocytosis - stable - monitor Hypertension - Stable Plan - Continue with current meds T3 N0 bladder cancer, present on admission. - Will defer further followup and management to oncology as outpatient for now. - Dr Evans has been made aware of the patient's admission - does not recommend Neupogen at this time for neutropenia Recent severe neutropenia post chemotherapy s/p Neupogen 480 mcg subcutaneously x 1 dose on 02/16/17 - improved Chronic pruritic rash - Improved - Currently denies any significant pruritus and no rash noted on exam Diabetes type 2 - Stable - Hold home Metformin - Cover with ISS for now DVT PROPHYLAXIS: Heparin Code status: Patient would like to be full code for now. Disposition: discharge after patient improves. Plan of care discussed with treatment team; Labs, radiology tests reviewed. Plan of care, alternatives were discussed and reviewed with patient/family. All questions answered. Patient/family verbalized understanding, approved and agreed to plan of care. GI Prophylaxis: Proton Pump Inhibitor Resuscitation Status: CPR: Attempt Resuscitation Phi Zheng MD Feb 25, 2017 14:03
[2017-02-25 14:50] LABS: BASOPHILS % (AUTO) 0.1 % (0-3); EOSINOPHILS % (AUTO) 0.1 % (0-5); MONOCYTES % (AUTO) 8.9 % (4-12); Mean Corpuscular Hemoglobin 28.5 pg (27.0-35.0); Mean Corpuscular Volume 87.5 fL (81-100); Platelet Count 623 bil/L (150-400)
[2017-02-25] MEDS: Dextrose 5% 0.9% NaCl 1,000 ML IV SCH ×3 (16:38→21:10)
--- NOTE | 2017-02-25 16:59 | DRSVH ---
PROCEDURE: X-RAY OPERATIVE CHOLANGIOGRAM ([id number]) INDICATIONS: PANCREATITIS COMPARISON: None. FINDINGS: Biliary ducts: The surgeon injected contrast into the biliary ducts after cannulation of the cystic duct stump. Visualized intra- and extrahepatic bile ducts are normal in caliber, without strictures. No intraluminal filling defects to suggest retained ductal stones or sludge. No evidence for iatro genic ductal injury. Extravasation noted. Duodenum: Contrast flows promptly through the sphincter of Oddi into the duodenum, which appears nor mal in caliber. IMPRESSION: Extravasation at the cystic duct cannulation site otherwise normal operative cholangiogra m. Dictated by: Yakov GARCIA Interpreted: Maria Guadalupe Baltazar MD on 02/25/2017 at 13:13 Approved by: Maria Guadalupe Baltazar M.D. on 02/25/2017 at 16:57
[2017-02-25] MEDS: Alum-Mag Hydrox-Simeth 30 mL Suspension PO PRN (21:53)
--- NOTE | 2017-02-25 23:15 | OP ---
[address] [address] OPERATIVE REPORT PATIENT: RANDY DRISCOLL : 1935 MR#: [id number] ADMIT: 02/19/2017 JOB ID: [id number] DATE OF SURGERY: 02/25/2017 SURGEON: Robbie Mills MD PREOPERATIVE DIAGNOSIS(ES): Acute cholecystitis. POSTOPERATIVE DIAGNOSIS(ES): Acute cholecystitis. PROCEDURE: Laparoscopic cholecystectomy with intraoperative cholangiogram, modifier 22 due to advanced degree of difficulty. SURGEON: Robbie Mills MD. PUBLIC HOUSING MANAGER: Geri Vyas. INDICATIONS: An 81-year-old man with coronary artery disease on Plavix who presented with acute cholecystitis six days ago. The Plavix has been held, and he is brought to the operating room for cholecystectomy and cholangiogram. FINDINGS: 1. bankruptcy legal assistant was medically necessary. 2. The patient's gallbladder inflammation was such that the plane between the gallbladder and liver and gallbladder and cystic duct were relatively adherent creating more than usual difficulty in the operation. Operative time was over 2 hours, well beyond 50% more than the standard amount of time I take for a laparoscopic cholecystectomy. 3. Intraoperative cholangiogram demonstrated good filling into the duodenum, no filling defects and normal extra and intrahepatic biliary anatomy. There was extravasation from the cystic duct that was anticipated and recognized and subsequently the cystic duct was ligated, as described below. DESCRIPTION OF PROCEDURE: The patient brought to the operating room. The SCOAP protocol was followed. General anesthetic was administered. The patient was receiving therapeutic antibiotics, and I felt that the risk of additional antibiotics outweighed the benefits. Surgical time-out was performed. We began with a Veress needle and insufflated the abdomen. We placed three additional ports. There was no free fluid. The gallbladder was thick and intense and needed to be decompressed with the needle. The gallbladder was retracted cephalad. There were a fair number of adhesions of the greater omentum to the liver capsule that were taken down to afford better exposure. The duodenum was decompressed with an orogastric tube. Despite this, the triangle of Calot was quite thickened. We started up high on the gallbladder, dissected down and tried to stay on the gallbladder and aim towards the triangle of Calot. When we got down to what we thought was the cystic duct/gallbladder junction, there was a tear in the gallbladder with subsequently spillage of bile and stones. All stones were retrieved or left in the right upper quadrant in the operative field to be removed later on in the case. With the gallbladder open, we could again have a better idea of where the gallbladder ended. We continued our dissection right on the gallbladder wall and then got down to where we thought we were in the plane between the gallbladder wall and the cystic duct. However, at this point, we entered the cystic duct. Bile returned. This was somewhat surprising and so we then went back up to where we were in the gallbladder and could see where the gallbladder was transected just at the entrance of the cystic duct into the gallbladder which was 5 mm proximal to where we had entered the cystic duct. We placed our cholangiocatheter through this opening and obtained a cholangiogram that demonstrated some extravasation from the cystic duct incision and from the cystic duct stump but a long corkscrewed cystic duct that entered a normal caliber common duct that emptied into the duodenum. We got retrograde flow up into the proximal cystic duct and could see a normal-appearing confluence of small intrahepatic ducts consistent with standard biliary tree anatomy. We now removed our cholangiocatheter. Given the long nature of the cystic duct, I felt that it was safe to dissect for approximately 1 cm down along the cystic duct, and then we closed what was a somewhat thickened, large cystic duct with a single Vicryl. We could visualize that the closure was below where we had entered the cystic duct during our dissection, and I felt satisfied that we had a good and safe closure of the cystic duct. In order to do this, we had transected the gallbladder completely from the cystic duct where it originated. We now dissected the gallbladder out of the liver bed which was again quite difficult as it was adherent and the normal planes of dissection were relatively obliterated. We did get into the gallbladder and spilled a few more stones, but these were all retrieved. Prior to the gallbladder from the liver bed, we did retrieve virtually all of the stones that had been spilled and suctioned until things were relatively clear. We now amputated the gallbladder from the liver bed and removed it in a bag without wound contamination. There were areas in the liver bed that we had gotten into the liver bed and we cauterized these. Bleeding seemed relatively normal, as did the cautery and it did not seem that there was too much effect left over from the patient's Plavix. Once we got good hemostasis, we rechecked our Vicryl Endoloop, irrigated the right upper quadrant and in the liver in the operative field until it was clear, making certain that we were not leaving any stone fragments behind. There was no sign of a bile leak. I did elect to place a Raul-Jasso drain in the liver bed and brought that out through the right-sided stab wound where we had placed our retractor port for laparoscopy. We secured this with a nylon suture and removed our laparoscopic ports. I closed the 12 mm port at the fascial level with a [id number] 0-Vicryl followed by subcuticular closure of the three remaining incisions and dry dressings. The patient tolerated the procedure well and at the time of this dictation is in the recovery room doing well. EDUARD
[2017-02-26] VITALS (7 sets, daily range): BP systolic 130–176; BP diastolic 61–86; PULSE 62–110; RESP 16–24; O2SAT 95–98
[2017-02-26] MEDS: Heparin 5,000 Unit/mL Inj SUBQ SCH ×3 (01:41→17:53)
[2017-02-26] MEDS: Dextrose 5% 0.9% NaCl 1,000 ML IV SCH ×3 (05:10→21:10)
[2017-02-26] MEDS: Piperacillin-Tazo 3.375 Gm Inj 3.375 GM in Dextrose 5% Minibag Plus 50 ML IV SCH ×3 (06:36→19:54)
[2017-02-26 06:57] LABS: BASOPHILS % (AUTO) 0.2 % (0-3); EOSINOPHILS % (AUTO) 0.2 % (0-5); MONOCYTES % (AUTO) 16.7 % (4-12); Mean Corpuscular Hemoglobin 28.7 pg (27.0-35.0); Mean Corpuscular Volume 88.1 fL (81-100); NEUTROPHILS % (AUTO) 74.3 % (40-74); Platelet Count 617 bil/L (150-400)
[2017-02-26] MEDS: Insulin LISPRO Low-Dose Scale SUBQ SCH ×4 (08:00→22:00)
[2017-02-26] MEDS: Pantoprazole 40 mg ER24 Tablet PO SCH ×2 (08:55→17:51)
[2017-02-26] MEDS: Isosorbide Mononitrate 30 mg ER24 Tablet PO SCH (08:56)
--- NOTE | 2017-02-26 10:41 | PCM.PNSURG ---
Subjective Date of Service: Feb 26, 2017 Date of Service: Feb 26, 2017 Visit Information: Reason for Visit Pancreatis Surgery/Surgery Date Post-Op Day # 1 Date of Admission: Feb 19, 2017 at 15:35 Hospital Day # 7 Subjective: Subjective: Patient reports that he is still having pain from the surgery, largely right upper quadrant pain. Patient reports some midline and left lower quadrant pain however does appear to be resolving at this time. Patient also complains of persistent left sided neck pain. Events Overnight: No acute events overnight. ROS: Abdominal pain, neck pain Denies fever/chills, nausea/vomiting, headache, weakness, chest pain, shortness of breath, increased swelling in hands or feet. Objective Objective General: No acute distress, well-developed, well-nourished Head: Normocephalic, atraumatic. External ears without defect. Eyes: Pupils equal, round, and reactive to light and accommodation. Anicteric sclerae, moist conjunctivae. Neck: Left-sided tenderness to palpation, Normal range of motion, no lymphadenopathy noted Cardiovascular: Regular rate and rhythm with no murmurs, rubs, or gallops appreciated Pulmonary: Clear to auscultation bilaterally with no crackles, wheezes, or rhonchi. Port catheter in place Abdomen: Bowel tones present. Soft, nondistended. Tender to palpation of the Right upper quadrant mild tenderness of the midline and left lower quadrant. ASIA drain in place draining serosanguineous fluid approximately 5-10 mL Extremities: No clubbing, cyanosis, edema Skin: Normal temperature, turgor, and texture; no rash, ulcers, or subcutaneous nodules appreciated. Neurological: Cranial nerves grossly intact. Coordination, and sensory function within normal limits. Psychiatric: Normal mood and affect. Alert and oriented to person, place, and time Vital Sign- Last 8 Hours Date Time Temp Pulse Resp B/P Pulse Ox O2 Delivery O2 Flow Rate FiO2 02/26/17 09:11 36.8 71 20 176/73 95 Nasal Cannula 4.00 02/26/17 09:10 82 24 97 Nasal Cannula 3.00 02/26/17 05:11 36.8 67 22 148/86 95 Nasal Cannula 4.00 Intake and Output- Last 8 Hour 02/26/17 Cumulative From/Thru 07:00 02/19/17 12:14 - 02/26/17 06:18 Intake Total 200 ml 47663 ml Output Total 240 ml 7780 ml Balance -40 ml 50445 ml Intake Oral 200 ml 2410 ml IV Total 08649 ml Packed Cells 600 ml Output Urine Total 200 ml 7595 ml Drainage Total 40 ml 100 ml Estimated Blood Loss 85 ml # Voids 2 11 # Bowel Movements 1 Result Diagram: 02/26/1750 02/26/1750 Assessment & Plan Impression 81-year-old male with complicated past medical history including recent diagnosis of bladder cancer post one cycle chemotherapy presents with abdominal pain secondary to resolving pancreatitis and cholecystitis Problems: Plan White count and other significant lab markers now trending down ASIA drain in place putting out serosanguineous fluid, continue to monitor Continue Abx Advance diet as tolerated Ambulate with PT Patient likely able to discharge within the next 24-48 hours pending diet tolerance and improvement of abdominal symptoms Resuscitation Status: CPR: Attempt Resuscitation Bola James DO Feb 26, 2017 10:41
--- NOTE | 2017-02-26 13:35 | PCM.PNMED ---
Subjective Date of Service Feb 26, 2017 Subjective Patient is in bed, mildly sedated probably from pain meds, complaining of mild abdominal pain. Exam Vital Signs Vital Sign - Last Date Time Temp Pulse Resp B/P Pulse Ox O2 Delivery O2 Flow Rate FiO2 02/26/17 09:11 36.8 71 20 176/73 95 Nasal Cannula 4.00 Intake and Output 02/25/17 02/25/17 02/26/17 Cumulative From/Thru 15:00 23:00 07:00 02/19/17 12:14 - 02/26/17 06:18 Intake Total 1427 ml 436 ml 200 ml 96159 ml Output Total 115 ml 30 ml 240 ml 7780 ml Balance 1312 ml 406 ml -40 ml 69732 ml Intake Oral 220 ml 200 ml 2410 ml IV Total 1427 ml 216 ml 88801 ml Packed Cells 600 ml Output Urine Total 200 ml 7595 ml Drainage Total 30 ml 30 ml 40 ml 100 ml Estimated Blood Loss 85 ml 85 ml # Voids 2 11 # Bowel Movements 1 Exam GENERAL: sleepy, not in distressve HEAD: atraumatic, normocephalic EYES: EOMI, anicteric, able to fully open and close eyelids SKIN: Skin color normal, turgor normal. No visible rashes or lesions. EAR, NOSE, MOUTH, THROAT: Lips, oral mucosa, tongue are moist, pink, no lesions. NECK: no jugulovenous distention; supple ROM normal. RESPIRATORY: Lungs clear to auscultation. Good diaphragmatic excursion. CARDIAC: normal S1 and S2; no rubs, murmurs, or gallops; irregular rhythm ABDOMEN: Abdomen soft, mildly tender. BS normal. No masses or organomegaly. MUSCULOSKELETAL: ROM full, muscles are not tender EXTREMITIES: no pitting edema in LE, no new deformities or skin discoloration. NEURO: Alert, oriented X 3, Cranial nerves II-XII intact, Grossly normal motor function. PULSES: 2+ radial, 2+ carotid REVIEW OF SYSTEMS: GENERAL: no malaise, no fevers., SEE HPI HEENT: Negative for frequent or significant headaches All other reviewed and negative other than HPI. IVs and Medications Medications Reviewed: Medications were reviewed in detail Lab and Diagnostics Result Diagram: 02/26/17 0650 02/26/17 0650 Microbiology Blood cultures pending X-Rays, CTs and MRIs Date of Service: 02/19/17 1222 PROCEDURE: CT ABDOMEN AND PELVIS WITH CONTRAST IMPRESSION: 1. Interval development of mild interstitial edematous pancreatitis, without acute peripancreatic fluid collections. 2. Multiple small dependent calcified gallstones as before. Gallbladder hydrops is also now present, which may reflect gallbladder outlet obstruction and incipient acute cholecystitis, versus a fasting state. 3. Persistent bilateral hydroureteronephrosis, probably secondary to vesicoureteral reflux. 2.9 cm right bladder diverticulum as before. 4. Ruiz colonic diverticulosis, without acute diverticulitis. 5. Small retrocardiac hiatal hernia as before. 6. Small fat containing periumbilical ventral hernia. Dictated by: Zachery Wolfe M.D. on 02/19/2017 at 14:13 Approved by: Zachery Wolfe M.D. on 02/19/2017 at 14:28 MR ABDOMEN MRCP IMPRESSION: 1. Study is degraded by patient motion and was terminated by the patient prior to obtaining dedicated MRCP images. 2. Enlarged gallbladder containing cholelithiasis with pericholecystic fluid most consistent with acute cholecystitis. 3. No intra-or extrahepatic hepatic bile duct dilatation. Grossly there is no choledocholithiasis although imaging is limited by motion and lack of MRCP images. 4. Peripancreatic edema consistent with pancreatitis. Dictated by: Michael Hand M.D. on 02/19/2017 at 17:31 Approved by: Michael Hand M.D. on 02/19/2017 at 17:43 . Cardiac Echo Impressions Interpretation Summary The ejection fraction is estimated to be 60-65%. There are no obvious focal wall motion abnormalities noted but poor endocardial definition reduces the sensitivity for the detection of such. Electronically signed by: Han Nunez on Reading Physician:02/21/2017 10:33 AM . Additional Diagnostics NM HIDA SCAN WITHOUT CCK IMPRESSION: 1. Nonfilling of gallbladder consistent with cystic duct obstruction. This finding is highly compatible with acute cholecystitis. 2. Patent common bile duct. No evidence for biliary obstruction. 3. Reflux of bile into the stomach. Dictated by: Anastacio Bales M.D. on 02/20/2017 at 16:36 Approved by: Anastacio Bales M.D. on 02/20/2017 at 16:39 . 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 Patient was treated with IV antibiotics, surgery and GI services were consulted. During this hospital stay patient was complaining of intermittent chest and abdominal pain. Troponin was mildly elevated. On February 25 patient underwent laparoscopic cholecystectomy. Acute pancreatitis. Acute cholecystitis, status post laparoscopic cholecystectomy 02/25/2017 - Improving, not under control - MRCP not indicative of choledocholithiasis - surgery 02/25/17 Plan - Continue with supportive care, anti-emetics - pain control with IV Morphine as needed - Continue with antibiotics for now - Cholecystectomy Coronary artery disease. Stable angina. Paroxysmal A-fib. - stable - Troponin elevated - patient is on ASA for CVA prophylaxis. Plan - Continue with home BP meds - Resume Plavix tomorrow - Hold Statin for now given elevated LFTs - rate control Hypokalemia - improved - Monitor Anemia - Stable after 2 u of RBC Plan - Monitor CBC Thrombocytosis - stable - monitor Hypertension -Blood pressure is on the higher side Plan - Continue with current meds - hold IV fluids T3 N0 bladder cancer, present on admission. - Table - Monitor, patient will follow up with his oncologist in outpatient settings Recent severe neutropenia post chemotherapy s/p Neupogen 480 mcg subcutaneously x 1 dose on 02/16/17 - improved Chronic pruritic rash - Improved - Currently denies any significant pruritus and no rash noted on exam Diabetes type 2 - Stable - Hold home Metformin - Cover with ISS for now DVT PROPHYLAXIS: Heparin Code status: Patient would like to be full code for now. Disposition: discharge after patient improves. Plan of care discussed with treatment team; Labs, radiology tests reviewed. Plan of care, alternatives were discussed and reviewed with patient/family. All questions answered. Patient/family verbalized understanding, approved and agreed to plan of care. GI Prophylaxis: Proton Pump Inhibitor Resuscitation Status: CPR: Attempt Resuscitation Phi Zheng MD Feb 26, 2017 13:35
[2017-02-26] MEDS: Alum-Mag Hydrox-Simeth 30 mL Suspension PO PRN (17:46)
--- NOTE | 2017-02-26 22:03 | PROG NOTE ---
[address] [address] PROGRESS NOTE PATIENT: RANDY DRISCOLL : 1935 MR#: [id number] ADMIT: 02/19/2017 JOB ID: [id number] DATE: 02/26/2017 SUBJECTIVE: He is postop day one laparoscopic cholecystectomy with cholangiogram, doing well. Complaining of shoulder pain and abdominal pain. His Raul-Jasso drain is serosanguineous, no bile. His abdominal exam is benign. Labs are all going in the right direction. IMPRESSION AND PLAN: Doing well. Continue his antibiotics and his drain.
[2017-02-27] MEDS: Heparin 5,000 Unit/mL Inj SUBQ SCH ×3 (03:04→18:16)
[2017-02-27] MEDS: Piperacillin-Tazo 3.375 Gm Inj 3.375 GM in Dextrose 5% Minibag Plus 50 ML IV SCH ×3 (04:51→20:54)
[2017-02-27] MEDS: Dextrose 5% 0.9% NaCl 1,000 ML IV SCH ×2 (05:10→14:38)
[2017-02-27 05:14] LABS: BASOPHILS % (AUTO) 0.3 % (0-3); EOSINOPHILS % (AUTO) 1.1 % (0-5); MONOCYTES % (AUTO) 14.2 % (4-12); Mean Corpuscular Hemoglobin 28.4 pg (27.0-35.0); Mean Corpuscular Volume 89.1 fL (81-100); NEUTROPHILS % (AUTO) 74.1 % (40-74); Platelet Count 553 bil/L (150-400)
[2017-02-27 05:25] VITALS: BP 170/74; PULSE 73; RESP 16; O2SAT 97
--- NOTE | 2017-02-27 07:23 | PCM.PNSURG ---
Subjective Date of Service: Feb 27, 2017 Date of Service: Feb 27, 2017 Visit Information: Reason for Visit Pancreatis Laparoscopic cholecystectomy with cholangiogram 02/25 Post-Op Day # 2 Date of Admission: Feb 19, 2017 at 15:35 Hospital Day # 8 Subjective: Subjective: Patient states he is feeling considerably better today, although continues with nausea and mild abdominal pain especially with palpation. Events Overnight: No acute events overnight. ROS: Denies fever/chills, vomiting, headache, weakness, abdominal pain, chest pain, shortness of breath, increased swelling in hands or feet. Objective Objective General: No acute distress, well-developed, well-nourished Head: Normocephalic, atraumatic. External ears without defect. Abdomen: Soft, nondistended. Tender to palpation of the Right upper quadrant mild tenderness of the midline and left lower quadrant. ASIA drain in place draining serosanguineous fluid Extremities: No clubbing, cyanosis, edema Skin: Normal temperature, turgor, and texture; no rash, ulcers, or subcutaneous nodules appreciated. Psychiatric: Normal mood and affect. Alert and oriented to person, place, and time Vital Sign- Last 8 Hours Date Time Temp Pulse Resp B/P Pulse Ox O2 Delivery O2 Flow Rate FiO2 02/27/17 05:25 36.8 73 16 170/74 97 Nasal Cannula 1.00 Intake and Output- Last 8 Hour 02/27/17 Cumulative From/Thru 07:00 02/19/17 12:14 - 02/27/17 06:39 Intake Total 974 ml 78621 ml Output Total 220 ml 8480 ml Balance 754 ml 50271 ml Intake Oral 800 ml 3847 ml IV Total 174 ml 82361 ml Packed Cells 600 ml Output Urine Total 100 ml 8095 ml Drainage Total 120 ml 300 ml Estimated Blood Loss 85 ml # Voids 1 13 # Bowel Movements 1 Result Diagram: 02/27/17 0500 02/27/17 0500 Assessment & Plan Impression 81-year-old male with complicated past medical history including recent diagnosis of bladder cancer post one cycle chemotherapy presents with abdominal pain secondary to resolving pancreatitis and cholecystitis. Status post cholecystectomy 2 days Problems: Plan White count and other significant lab markers now trending down with exception of lipase which has gone up slightly, continue to monitor Pt reports increased nausea, Diet changed to clears for now ASIA drain in place putting out serosanguineous fluid, continue to monitor Continue Abx Resuscitation Status: CPR: Attempt Resuscitation Field,Bola Raza Feb 27, 2017 07:17
[2017-02-27] MEDS: Insulin LISPRO Low-Dose Scale SUBQ SCH ×4 (08:00→22:00)
[2017-02-27 08:02] VITALS: BP 163/77; PULSE 79; RESP 16; O2SAT 97
[2017-02-27] MEDS: Isosorbide Mononitrate 30 mg ER24 Tablet PO SCH (09:23)
[2017-02-27] MEDS: Pantoprazole 40 mg ER24 Tablet PO SCH ×2 (09:24→18:15)
[2017-02-27] MEDS: Artificial Tears 15 mL Ophthalmic Solution BOTH_EYES PRN (09:27)
[2017-02-27 12:36] VITALS: BP 148/69; PULSE 60; RESP 17; O2SAT 97
--- NOTE | 2017-02-27 16:21 | PCM.PNMED ---
Subjective Date of Service Feb 27, 2017 Exam Vital Signs Vital Sign - Last Date Time Temp Pulse Resp B/P Pulse Ox O2 Delivery O2 Flow Rate FiO2 02/27/17 12:36 36.8 60 17 148/69 97 Nasal Cannula 1.00 Intake and Output 02/26/17 02/26/17 02/27/17 Cumulative From/Thru 15:00 23:00 07:00 02/19/17 12:14 - 02/27/17 06:39 Intake Total 1582 ml 1219 ml 974 ml 06349 ml Output Total 480 ml 220 ml 8480 ml Balance 1582 ml 739 ml 754 ml 45417 ml Intake Oral 637 ml 800 ml 3847 ml IV Total 1582 ml 582 ml 174 ml 35662 ml Packed Cells 600 ml Output Urine Total 400 ml 100 ml 8095 ml Drainage Total 80 ml 120 ml 300 ml Estimated Blood Loss 85 ml # Voids 1 1 13 # Bowel Movements 0 1 Exam GENERAL: awake, not in distrese. feels better HEAD: atraumatic, normocephalic EYES: EOMI, anicteric SKIN: Skin color normal, turgor normal. No visible rashes EAR, NOSE, MOUTH, THROAT: Lips, oral mucosa, tongue are moist, pink, no lesions. NECK: no jugulovenous distention; supple ROM normal. RESPIRATORY: Lungs clear to auscultation. Good diaphragmatic excursion. CARDIAC: normal S1 and S2; no rubs or gallops; irregular rhythm ABDOMEN: Abdomen soft, mildly tender. BS normal. No masses or organomegaly. MUSCULOSKELETAL: ROM full, muscles are not tender EXTREMITIES: no pitting edema in LE, no new deformities or skin discoloration. NEURO: Alert, oriented X 3, Cranial nerves II-XII intact, Grossly normal motor function. PULSES: 2+ radial, 2+ carotid REVIEW OF SYSTEMS: GENERAL: no malaise, no fevers., SEE HPI HEENT: Negative for frequent or significant headaches All other reviewed and negative other than HPI. IVs and Medications Medications Reviewed: Medications were reviewed in detail Lab and Diagnostics Result Diagram: 02/27/17 0500 02/27/17 0500 Microbiology Blood cultures pending X-Rays, CTs and MRIs Date of Service: 02/19/17 1222 PROCEDURE: CT ABDOMEN AND PELVIS WITH CONTRAST IMPRESSION: 1. Interval development of mild interstitial edematous pancreatitis, without acute peripancreatic fluid collections. 2. Multiple small dependent calcified gallstones as before. Gallbladder hydrops is also now present, which may reflect gallbladder outlet obstruction and incipient acute cholecystitis, versus a fasting state. 3. Persistent bilateral hydroureteronephrosis, probably secondary to vesicoureteral reflux. 2.9 cm right bladder diverticulum as before. 4. Ruiz colonic diverticulosis, without acute diverticulitis. 5. Small retrocardiac hiatal hernia as before. 6. Small fat containing periumbilical ventral hernia. Dictated by: Zachery Wolfe M.D. on 02/19/2017 at 14:13 Approved by: Zachery Wolfe M.D. on 02/19/2017 at 14:28 MR ABDOMEN MRCP IMPRESSION: 1. Study is degraded by patient motion and was terminated by the patient prior to obtaining dedicated MRCP images. 2. Enlarged gallbladder containing cholelithiasis with pericholecystic fluid most consistent with acute cholecystitis. 3. No intra-or extrahepatic hepatic bile duct dilatation. Grossly there is no choledocholithiasis although imaging is limited by motion and lack of MRCP images. 4. Peripancreatic edema consistent with pancreatitis. Dictated by: Michael Hand M.D. on 02/19/2017 at 17:31 Approved by: Michael Hand M.D. on 02/19/2017 at 17:43 . Cardiac Echo Impressions Interpretation Summary The ejection fraction is estimated to be 60-65%. There are no obvious focal wall motion abnormalities noted but poor endocardial definition reduces the sensitivity for the detection of such. Electronically signed by: Han Nunez on Reading Physician:02/21/2017 10:33 AM . Additional Diagnostics NM HIDA SCAN WITHOUT CCK IMPRESSION: 1. Nonfilling of gallbladder consistent with cystic duct obstruction. This finding is highly compatible with acute cholecystitis. 2. Patent common bile duct. No evidence for biliary obstruction. 3. Reflux of bile into the stomach. Dictated by: Anastacio Bales M.D. on 02/20/2017 at 16:36 Approved by: Anastacio Bales M.D. on 02/20/2017 at 16:39 . 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 Patient was treated with IV antibiotics, surgery and GI services were consulted. During this hospital stay patient was complaining of intermittent chest and abdominal pain. Troponin was mildly elevated. On February 25 patient underwent laparoscopic cholecystectomy. Acute pancreatitis. Acute cholecystitis, status post laparoscopic cholecystectomy 02/25/2017 - Improving, leukocytosis is still present - MRCP not indicative of choledocholithiasis Plan - Continue with supportive care, anti-emetics - pain control with IV Morphine as needed - Continue with antibiotics for now - Cholecystectomy Coronary artery disease. Stable angina. Paroxysmal A-fib. - stable - Troponin elevated - patient is on ASA for CVA prophylaxis. Plan - Continue with home BP meds - Resume Plavix - Hold Statin for now given elevated LFTs - rate control Hypokalemia - improved - Monitor Anemia - Stable after 2 u of RBC Plan - Monitor CBC Thrombocytosis - stable - monitor Hypertension -Blood pressure is on the higher side Plan - Continue with current meds - hold IV fluids T3 N0 bladder cancer, present on admission. - Table - Monitor, patient will follow up with his oncologist in outpatient settings Recent severe neutropenia post chemotherapy s/p Neupogen 480 mcg subcutaneously x 1 dose on 02/16/17 - improved Chronic pruritic rash - Improved - Currently denies any significant pruritus and no rash noted on exam Diabetes type 2 - Stable - Hold home Metformin - Cover with ISS for now DVT PROPHYLAXIS: Heparin Code status: I discussed code status with the patient and family, Patient would like to be full code for now, family support him in his decision. Disposition: discharge after patient improves. Plan of care discussed with treatment team; Labs, radiology tests reviewed. Plan of care, alternatives were discussed and reviewed with patient/family. All questions answered. Patient/family verbalized understanding, approved and agreed to plan of care. GI Prophylaxis: Proton Pump Inhibitor VTE Mechanical Devices: Intermittant Pneumatic CD Resuscitation Status: CPR: Attempt Resuscitation Phi Zheng MD Feb 27, 2017 16:21
[2017-02-27 19:56] VITALS: BP 167/73; PULSE 72; RESP 16; O2SAT 95
[2017-02-27] MEDS: 0.9% Sodium Chloride 250 ML IV SCH (20:55)
[2017-02-28] MEDS: Heparin 5,000 Unit/mL Inj SUBQ SCH ×3 (00:56→17:22)
[2017-02-28] MEDS: Piperacillin-Tazo 3.375 Gm Inj 3.375 GM in Dextrose 5% Minibag Plus 50 ML IV SCH (04:30)
[2017-02-28 05:25] VITALS: BP 168/80; PULSE 78; O2SAT 95
--- NOTE | 2017-02-28 07:45 | PCM.PNSURG ---
Subjective Date of Service: Feb 28, 2017 Date of Service: Feb 28, 2017 Visit Information: Reason for Visit Pancreatis Surgery/Surgery Date Post-Op Day # 3 Date of Admission: Feb 19, 2017 at 15:35 Hospital Day # 9 Subjective: Subjective: Patient reports to have mild abdominal pain improved from previous, patient also reports mild nausea and subsequent anorexia. Patient placed on clear diet yesterday due to increased nausea, however patient appears to be tolerating oral intake this morning, will advance diet as tolerated Events Overnight: No acute events overnight. ROS: Abdominal pain, nausea Denies fever/chills, vomiting, headache, weakness, chest pain, shortness of breath, increased swelling in hands or feet. Objective Objective General: No acute distress, well-developed, well-nourished Head: Normocephalic, atraumatic. External ears without defect. Abdomen: Soft, nondistended. Tender to palpation of the Right upper quadrant mild tenderness of the midline and left lower quadrant. Extremities: No clubbing, cyanosis, edema Skin: Normal temperature, turgor, and texture; no rash, ulcers, or subcutaneous nodules appreciated. Psychiatric: Normal mood and affect. Alert and oriented to person, place, and time Vital Sign- Last 8 Hours Date Time Temp Pulse Resp B/P Pulse Ox O2 Delivery O2 Flow Rate FiO2 02/28/17 05:25 36.5 78 168/80 95 Nasal Cannula 1.00 Intake and Output- Last 8 Hour 02/28/17 Cumulative From/Thru 07:00 02/19/17 12:14 - 02/28/17 05:58 Intake Total 200 ml 79545 ml Output Total 105 ml 9095 ml Balance 95 ml 26306 ml Intake Oral 200 ml 4967 ml IV Total 75985 ml Packed Cells 600 ml Output Urine Total 8545 ml Drainage Total 105 ml 465 ml Estimated Blood Loss 85 ml # Voids 3 18 # Bowel Movements 1 4 SURGICAL WOUND : Wound Location/Description Surgical sites appear to be clean and healing well, ASIA drain in place draining serosanguineous fluid. 105 mL out in the last 24 hours Result Diagram: 02/27/17 0500 02/27/17 0500 Assessment & Plan Impression 81-year-old male with complicated past medical history including recent diagnosis of bladder cancer post one cycle chemotherapy presents with abdominal pain secondary to resolving pancreatitis and cholecystitis. Status post cholecystectomy 3 days Problems: Plan White count and other significant lab markers now trending down, continue to monitor Appears to be feeling better today, tolerating oral intake, advance diet as tolerated ASIA drain in place putting out serosanguineous fluid, continue to monitor Antibiotics discontinued Resuscitation Status: CPR: Attempt Resuscitation Field,Bola Raza DO Feb 28, 2017 07:45
--- NOTE | 2017-02-28 08:07 | PATH ---
SURGICAL PATHOLOGY Attending Physician:Robbie Mills MD CASE STATUS: Signed Out PATIENT NAME: RANDY DRISCOLL PID: [id number] : 1935 DATE COLLECTED:02/25/2017 20:22 SPECIMEN: Gallbladder CLINICAL HISTORY: PANCREATITIS 1). GALLBLADDER FINAL DIAGNOSIS: Gallbladder, Cholecystectomy: Acute cholecystitis. Cholelithiasis. ICD10: K80.0 GROSS DESCRIPTION: The specimen is received in formalin, labeled with the patient's name, sublabeled as gallbladder and contents, and consists of an opened gallbladder (length-8.8 cm, diameter-5.0 cm). The cystic duct cannot be identified. No lymph nodes are identified. The serosa is alexandre-pink smooth and shiny. The mucosa is alexandre-babin smooth flat, and partially eroded exposing green smooth flat tissue. The wall is up to 0.3 cm thick. The contents are also submitted and consist of multiple pale green smooth hard calculi (2.2 x 0.8 x 0.7 cm in aggregate, ranging 0.5 x 0.5 x 0.4 cm-0.8 x 0.7 x 0.5 cm) with clear crystalline cut surfaces. No nodules, masses or lesions are identified. Section code: (A) proximal tissue, serially sectioned; (B) 2 serial sections from middle body; (C) 2 longitudinal sections from the fundus. 02/26/17 ICD-9 CODES: CPT CODES: 1: 18960 Electronically Signed Out Jj Shane MD, Ph.D. [facility] [address], [place] [address] Technical component performed at [facility], [facility] [address], [place], [address]
[2017-02-28] MEDS: Pantoprazole 40 mg ER24 Tablet PO SCH ×2 (08:38→17:22)
[2017-02-28] MEDS: Isosorbide Mononitrate 30 mg ER24 Tablet PO SCH (08:38)
[2017-02-28] MEDS: Insulin LISPRO Low-Dose Scale SUBQ SCH ×4 (08:39→22:00)
[2017-02-28] MEDS: Alum-Mag Hydrox-Simeth 30 mL Suspension PO PRN (09:27)
[2017-02-28 09:29] VITALS: BP 157/72; PULSE 89; RESP 20
[2017-02-28 12:42] LABS: Mean Corpuscular Hemoglobin 28.3 pg (27.0-35.0); Mean Corpuscular Volume 89.1 fL (81-100)
--- NOTE | 2017-02-28 14:27 | PCM.PNMED ---
Subjective Date of Service Feb 28, 2017 Subjective Patient is in the bed, feeling better, eating breakfast. Exam Vital Signs Vital Sign - Last Date Time Temp Pulse Resp B/P Pulse Ox O2 Delivery O2 Flow Rate FiO2 02/28/17 09:29 36.5 89 20 157/72 Room Air 02/28/17 05:25 95 1.00 Intake and Output 02/27/17 02/27/17 02/28/17 Cumulative From/Thru 15:00 23:00 07:00 02/19/17 12:14 - 02/28/17 05:58 Intake Total 1156 ml 200 ml 21667 ml Output Total 510 ml 105 ml 9095 ml Balance 646 ml 95 ml 21860 ml Intake Oral 920 ml 200 ml 4967 ml IV Total 236 ml 71042 ml Packed Cells 600 ml Output Urine Total 450 ml 8545 ml Drainage Total 60 ml 105 ml 465 ml Estimated Blood Loss 85 ml # Voids 2 3 18 # Bowel Movements 2 1 4 Exam GENERAL: awake, feels better HEAD: atraumatic, normocephalic EYES: EOMI, anicteric SKIN: No visible rashes EAR, NOSE, MOUTH, THROAT: Lips, oral mucosa, tongue are moist, pink, no lesions. NECK: no jugulovenous distention; supple ROM normal. RESPIRATORY: Lungs clear to auscultation CARDIAC: normal S1 and S2; no rubs or gallops; irregular rhythm ABDOMEN: Abdomen soft, mildly tender. MUSCULOSKELETAL: ROM full, muscles are not tender EXTREMITIES: no pitting edema in LE, no new deformities NEURO: Alert, oriented X 3, Cranial nerves II-XII intact, Grossly normal motor function. PULSES: 2+ radial, 2+ carotid REVIEW OF SYSTEMS: GENERAL: no malaise, no fevers., SEE HPI HEENT: Negative for frequent or significant headaches All other reviewed and negative other than HPI. IVs and Medications Medications Reviewed: Medications were reviewed in detail Lab and Diagnostics Result Diagram: 02/28/17 1223 02/28/17 1223 Microbiology Blood cultures pending X-Rays, CTs and MRIs Date of Service: 02/19/17 122 PROCEDURE: CT ABDOMEN AND PELVIS WITH CONTRAST IMPRESSION: 1. Interval development of mild interstitial edematous pancreatitis, without acute peripancreatic fluid collections. 2. Multiple small dependent calcified gallstones as before. Gallbladder hydrops is also now present, which may reflect gallbladder outlet obstruction and incipient acute cholecystitis, versus a fasting state. 3. Persistent bilateral hydroureteronephrosis, probably secondary to vesicoureteral reflux. 2.9 cm right bladder diverticulum as before. 4. Ruiz colonic diverticulosis, without acute diverticulitis. 5. Small retrocardiac hiatal hernia as before. 6. Small fat containing periumbilical ventral hernia. Dictated by: Zachery Wolfe M.D. on 02/19/2017 at 14:13 Approved by: Zachery Wolfe M.D. on 02/19/2017 at 14:28 MR ABDOMEN MRCP IMPRESSION: 1. Study is degraded by patient motion and was terminated by the patient prior to obtaining dedicated MRCP images. 2. Enlarged gallbladder containing cholelithiasis with pericholecystic fluid most consistent with acute cholecystitis. 3. No intra-or extrahepatic hepatic bile duct dilatation. Grossly there is no choledocholithiasis although imaging is limited by motion and lack of MRCP images. 4. Peripancreatic edema consistent with pancreatitis. Dictated by: Michael Hand M.D. on 02/19/2017 at 17:31 Approved by: Michael Hand M.D. on 02/19/2017 at 17:43 . Cardiac Echo Impressions Interpretation Summary The ejection fraction is estimated to be 60-65%. There are no obvious focal wall motion abnormalities noted but poor endocardial definition reduces the sensitivity for the detection of such. Electronically signed by: Han Nunez on Reading Physician:02/21/2017 10:33 AM . Additional Diagnostics NM HIDA SCAN WITHOUT CCK IMPRESSION: 1. Nonfilling of gallbladder consistent with cystic duct obstruction. This finding is highly compatible with acute cholecystitis. 2. Patent common bile duct. No evidence for biliary obstruction. 3. Reflux of bile into the stomach. Dictated by: Anastacio Bales M.D. on 02/20/2017 at 16:36 Approved by: Anastacio Bales M.D. on 02/20/2017 at 16:39 . 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 Patient was treated with IV antibiotics, surgery and GI services were consulted. During this hospital stay patient was complaining of intermittent chest and abdominal pain. Troponin was mildly elevated. On February 25 patient underwent laparoscopic cholecystectomy. Acute pancreatitis. Acute cholecystitis, status post laparoscopic cholecystectomy 02/25/2017 - Improving, leukocytosis is still present - MRCP not indicative of choledocholithiasis Plan - Continue with supportive care, anti-emetics - pain control with IV Morphine as needed - Antibiotics were discontinued Coronary artery disease. Stable angina. Paroxysmal A-fib. - stable - Troponin elevated - patient is on ASA/Plavix Plan - Continue with home BP meds - c/w ASA, Plavix - Hold Statin for now given elevated LFTs - rate control Generalized weakness - stable - PT Hypokalemia - improved - Monitor Anemia - Stable after 2 u of RBC Plan - Monitor CBC Thrombocytosis - stable - monitor Hypertension -Blood pressure is on the higher side Plan - Continue with current meds - hold IV fluids T3 N0 bladder cancer, present on admission. - Table - Monitor, patient will follow up with his oncologist in outpatient settings Recent severe neutropenia post chemotherapy s/p Neupogen 480 mcg subcutaneously x 1 dose on 02/16/17 - improved Chronic pruritic rash - Improved - Currently denies any significant pruritus and no rash noted on exam Diabetes type 2 - Stable - Hold home Metformin - Cover with ISS for now DVT PROPHYLAXIS: Heparin Code status: I discussed code status with the patient and family, Patient would like to be full code for now, family support him in his decision. Disposition: discharge after patient improves. Plan of care discussed with treatment team; Labs, radiology tests reviewed. Plan of care, alternatives were discussed and reviewed with patient/family, treatment team. All questions answered. Patient/family verbalized understanding , approved and agreed to plan of care. GI Prophylaxis: Proton Pump Inhibitor VTE Mechanical Devices: Intermittant Pneumatic CD Resuscitation Status: CPR: Attempt Resuscitation Phi Zheng MD Feb 28, 2017 14:27
[2017-02-28 14:29] VITALS: BP 163/75; PULSE 70; RESP 20
[2017-02-28 20:51] VITALS: BP 144/78; PULSE 59; RESP 18; O2SAT 97
[2017-02-28] MEDS: 0.9% Sodium Chloride 250 ML IV SCH (21:05)
[2017-03-01] MEDS: Heparin 5,000 Unit/mL Inj SUBQ SCH ×3 (00:46→18:04)
[2017-03-01 04:36] VITALS: BP 187/96; PULSE 75; RESP 20; O2SAT 98
[2017-03-01 06:13] VITALS: BP 152/85
--- NOTE | 2017-03-01 08:23 | PCM.PNSURG ---
Subjective Date of Service: Mar 01, 2017 Date of Service: Mar 01, 2017 Visit Information: Reason for Visit Pancreatis Surgery/Surgery Date Post-Op Day # 4 Date of Admission: Feb 19, 2017 at 15:35 Hospital Day # 10 Subjective: No acute events overnight. Eating more but still complains of abdominal discomfort primarily at his drain site. No nausea or vomiting. Bowel movement daily. Walking. No fevers. Lipase trended down yesterday. AM labs still pending. Objective Vital Sign- Last 8 Hours Date Time Temp Pulse Resp B/P Pulse Ox O2 Delivery O2 Flow Rate FiO2 03/01/17 06:13 152/85 03/01/17 04:36 36.8 75 20 187/96 98 Room Air Intake and Output- Last 8 Hour 03/01/17 Cumulative From/Thru 07:00 02/19/17 12:14 - 03/01/17 06:26 Intake Total 575 ml 36778 ml Output Total 1085 ml 44827 ml Balance -510 ml 71651 ml Intake Oral 400 ml 6567 ml IV Total 175 ml 71664 ml Packed Cells 600 ml Output Urine Total 1020 ml 77738 ml Drainage Total 65 ml 670 ml Estimated Blood Loss 85 ml # Voids 18 # Bowel Movements 1 5 General: Alert, Oriented X3, Cooperative, No Acute Distress Lungs: Other (Breathing comfortably on room air. No w/c.) Heart: Regular Rate/Rhythm Abdomen: Soft, Non-distended, Normoactive bowel tones, Other (Tender only at drain entry site. No erythema. Incisions healing well.) Extremities: Warm Catheters: None Result Diagram: 02/28/17 1223 02/28/17 1223 Assessment & Plan Impression 81 yo M Kosovan speaking male with recurrent high grade papillary bladder carcinoma on chemotherapy admitted with acute pancreatitis and cholecystitis s/ p laparoscopic cholecystectomy with normal cholangiogram and 7 day course of antibiotics. Hospital course also complicated by mild troponin elevation now resolved. Problems: Plan Pain: Continue oral pain regimen. Well controlled. Will remove ASIA drain tomorrow which should improve his discomfort there. Wound: incisions healing well, no concerns Heme/ID: No further antibiotics. Plavix and aspirin. GI: Heart healthy diet, follow up morning labs to monitor trend in lipase, if down again no further labwork needed per surgical team Dispo: Likely discharge home will be okay tomorrow from surgical perspective, remove ASIA prior to discharge. Resuscitation Status: CPR: Attempt Resuscitation Ade Hernandez MD Mar 01, 2017 08:23
[2017-03-01] MEDS: Artificial Tears 15 mL Ophthalmic Solution BOTH_EYES PRN (09:40)
[2017-03-01] MEDS: Insulin LISPRO Low-Dose Scale SUBQ SCH ×4 (10:11→22:00)
[2017-03-01] MEDS: Isosorbide Mononitrate 30 mg ER24 Tablet PO SCH (10:12)
[2017-03-01] MEDS: Pantoprazole 40 mg ER24 Tablet PO SCH ×2 (10:12→18:03)
[2017-03-01 11:35] VITALS: BP 139/47; PULSE 81; RESP 20; O2SAT 94
[2017-03-01 11:42] LABS: Mean Corpuscular Volume 88.7 fL (81-100)
--- NOTE | 2017-03-01 11:46 | PCM.CONPAL ---
Date of Service Mar 01, 2017 Date of Hospital Admission: Feb 19, 2017 at 15:35 Date of Palliative Consult: Mar 01, 2017 Reason Palliative Care Consult: Pain, Goals of Care Discussion Hospital Unit @time of consult: Orthopedic/Surgical Care Palliative Care Recommendation Summary of palliative recommendations: -Symptom management (Pain/other). Increased Oxycodone to 7.5 mg Q4 h prn. -DPOA/Advanced Directives/POLST. He wishes to have CPR but not to be intubated. The inconsistency is noted but even with an expert sales associate cashier present I could not successfully explain the distinctions of the POLST in a way that would produce a more rational outcome. This is also inconsistent with his prior discussions with hospitalists, but this is the decision he made today. -Family/emotional support. He apparently has a daughter who lives locally but chose to sign the POLST without waiting for her to review it. That was my suggestion to him, hoping to iron out the inconsistencies. I suspect his daughter may have been present at the prior discussions, likely accounting for the small changes in his code approach. 1. Patient wants to be told the truth about his/her illness, even if it is unpleasant. Yes 2. Patient would like to be told prognosis when it can be predicted, to better guide treatment decisions. Yes Additional Medical Diagnoses with primary management by Hospitalist team include : Acute pancreatitis. Acute cholecystitis, status post laparoscopic cholecystectomy 02/25/2017 Coronary artery disease. Stable angina. Paroxysmal A-fib. Generalized weakness Hypokalemia Anemia Thrombocytosis Hypertension T3 N0 bladder cancer, present on admission. Recent severe neutropenia post chemotherapy Chronic pruritic rash Diabetes type 2 Problems: Disposition Increase Oxycodone to 7.5 mg Q4h prn See discussion above POLST form completed Goals of Care Will need ongoing clarification and definitely needs a real life interpretor present in the room with each such discussion. 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 He reports some associated chills but denies any significant nausea, vomiting, fever, or diarrhea. He denies any similar symptoms in the past. He reports ongoing urinary hesitancy but otherwise denies any dysuria. He further denies any melena or hematochezia. In the ED his workup was notable for significantly elevated Lipase and abdominal CT suggestive of acute pancreatitis and possible acute cholecystitis. MRCP was ordered in the ED and GI was consulted. Past Medical History Significant PMH Noted: T3 N0 bladder cancer, status post one cycle of carboplatin/gemcitabine chemotherapy and followed by Dr. Evans Severe neutropenia post chemotherapy s/p Neupogen 480 mcg subcutaneously x 1 dose on 02/16/17 Chronic pruritic rash. Etiology is unclear. 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 Living Situation: Lives with his . Palliative Performance Scale PPS Patient Status: Current PPS Ambulation: Reduced PPS Activity: Unable to do normal job/work PPS Self-Care: Considerable assistance required PPS Intake: Normal PPS Conscious Level: Full Performance Scale: 50% ADLs ADL Patient Status: Current ADL Ambulation: Mainly Bed ADL Dressing: Considerable assistance required ADL Feeding: Occasional assistance necessary ADL Hygene/bathing: Mainly assistance ADL Transfers: Occasional assistance necessary Allergy Allergies Reviewed: Yes Medications Current Medications: Current Medications Piperacillin Sod/ Tazobactam Sod 3.375 gm/Dextrose/ Water 50 ml @ 12.5 mls/hr Q8H IV Last administered on 02/28/17t 04:30; Admin Dose 12.5 MLS/HR; Start 02/27 at 12:00; Stop 02/28/17 at 04:00; Status DC Sodium Chloride 250 ml @ 10 mls/hr Q24H IV Last administered on 02/28/17 21:05 ; Admin Dose 10 MLS/HR; Start 02/27/17 at 19:35 Oxycodone HCl 5 mg Q4H PRN PO Last administered on 03/01/17 09:40; Admin Dose 5 MG; Start 03/01/17 at 08:25 Scheduled Amlodipine (Amlodipine) 2.5 Mg Tablet 2.5 MG PO BID Aspirin Chew (Aspirin Chew) 81 Mg Chew 81 MG PO DAILY Atorvastatin Calcium (Atorvastatin Calcium) 10 Mg Tablet 10 MG PO HS Clopidogrel (Clopidogrel) 75 Mg Tablet 75 MG PO DAILY Isosorbide MN ER (Isosorbide MN ER) 30 Mg Tab.er.24h 60 MG PO QAM Metformin (Metformin) 500 Mg Tablet 500 MG PO DAILY Metoprolol Tartrate (Metoprolol Tartrate) 25 Mg Tablet 25 MG PO BID Scheduled PRN Dextran 70/Hypromellose/Pf (Artificial Tears Drops) 1 Each Droperette 1 DROP BOTH_EYES BID PRN PRN For Eye Irritation Nitroglycerin SL (Nitrostat) 0.4 Mg Tab.subl 0.4 MG SL Q5MIN PRN PRN For Chest Pain Ondansetron (Ondansetron) 8 Mg Tablet 8 MG PO BID PRN PRN For Nausea Tramadol (Tramadol) 50 Mg Tablet 50 MG PO BID PRN PRN For Pain Objective Findings Exam Vital Sign - Last Date Time Temp Pulse Resp B/P Pulse Ox O2 Delivery O2 Flow Rate FiO2 03/01/17 06:13 152/85 03/01/17 04:36 36.8 75 20 98 Room Air 02/28/17 05:25 1.00 Intake and Output 02/28/17 02/28/17 03/01/17 Cumulative From/Thru 15:00 23:00 07:00 02/19/17 12:14 - 03/01/17 06:26 Intake Total 1470 ml 575 ml 32257 ml Output Total 1040 ml 1085 ml 85883 ml Balance 430 ml -510 ml 02718 ml Intake Oral 1200 ml 400 ml 6567 ml IV Total 270 ml 175 ml 89631 ml Packed Cells 600 ml Output Urine Total 900 ml 1020 ml 26587 ml Drainage Total 140 ml 65 ml 670 ml Estimated Blood Loss 85 ml # Voids 18 # Bowel Movements 1 5 General: Alert/Oriented x3 HEENT: Atraumatic, Scleral Anicteric Lungs: Normal Air Movement Neuro: Arousable, Follows Commands, Speech (Slow to speak but adequately understood when he wishes to participate. ) Extremities: Warm, No Edema Lab/Diagnostics Lab and Imaging results reviewed in detail in EMR. Patient/Family Conference Members Present Family Members Present Medical Team Members Present? Geo Cruz MS3 Chro Fran Discussion/Goals of Care Discussion FAMILY UNDERSTANDING OF DISEASE: Waiting for the Pancreatitis and the ASIA drain issues to resolve. Unable to remember the Oncologists name but remembers being told that the Bladder Cancer has spread locally but not distally. DISEASE PROGRESSION/EVIDENCE OF DECLINE: At first minimizes quite stoically the abdominal pain but then eventually says that the Oxycodone helps only temporarily and would like to have better and longer pain control. SYMPTOM BURDEN: Abdominal pain Do you want to be told truth about his illness, even if unpleasant? Yes Palliative Care counselled: POLST form is completed with a goals of care discussion. He would like to have CPR but to not be intubated. He chooses Selective Treatment consistent with the oxygen and other interventions he is currently receiving. He declines tube feeding but wishes to have antibiotics to treat infections. Pain control may improve with a higher dose of Oxycodone. I am concerned that he is quite stoic and didn't mention the level of pain he was having until the purpose of a Palliative Care consult was explained. I don't think long acting opiates or a shorter prn interval would be indicated. I recommend increasing the Oxycodone to 7.5 mg and continuing the same prn interval. Time spent Total time [75 ] minutes; >50% face to face with patient and/or family, providing counselling regarding plans and recommendations, and in care coordination with his/her medical teams. Angela Merino MD Mar 01, 2017 09:52
--- NOTE | 2017-03-01 15:00 | PCM.PNMED ---
Subjective Date of Service Mar 01, 2017 Subjective Patient is in bed, c/o mild RUQ abdominal pain. Exam Vital Signs Vital Sign - Last Date Time Temp Pulse Resp B/P Pulse Ox O2 Delivery O2 Flow Rate FiO2 03/01/17 13:02 Room Air 03/01/17 11:35 37.1 81 20 139/47 94 2.00 Intake and Output 02/28/17 02/28/17 03/01/17 Cumulative From/Thru 15:00 23:00 07:00 02/19/17 12:14 - 03/01/17 06:26 Intake Total 1470 ml 575 ml 49092 ml Output Total 1040 ml 1085 ml 29138 ml Balance 430 ml -510 ml 49451 ml Intake Oral 1200 ml 400 ml 6567 ml IV Total 270 ml 175 ml 54515 ml Packed Cells 600 ml Output Urine Total 900 ml 1020 ml 32546 ml Drainage Total 140 ml 65 ml 670 ml Estimated Blood Loss 85 ml # Voids 18 # Bowel Movements 1 5 Exam GENERAL: awake, in bed HEAD: atraumatic, normocephalic EYES: EOMI, anicteric SKIN: No visible rashes EAR, NOSE, MOUTH, THROAT: Lips, oral mucosa, tongue are moist, pink, no lesions. NECK: no jugulovenous distention; supple ROM normal. RESPIRATORY: Lungs clear to auscultation CARDIAC: normal S1 and S2; no rubs or gallops; irregular rhythm ABDOMEN: Abdomen soft, mildly tender. MUSCULOSKELETAL: ROM full, muscles are not tender EXTREMITIES: no pitting edema in LE, no new deformities NEURO: Alert, oriented X 3, Cranial nerves II-XII intact, Grossly normal motor function. PULSES: 2+ radial, 2+ carotid REVIEW OF SYSTEMS: GENERAL: + malaise, no fevers., SEE HPI HEENT: Negative for frequent or significant headaches All other reviewed and negative other than HPI. IVs and Medications Medications Reviewed: Medications were reviewed in detail Lab and Diagnostics Result Diagram: 03/01/17 1130 03/01/17 1130 Microbiology Blood cultures pending X-Rays, CTs and MRIs Date of Service: 02/19/17 1222 PROCEDURE: CT ABDOMEN AND PELVIS WITH CONTRAST IMPRESSION: 1. Interval development of mild interstitial edematous pancreatitis, without acute peripancreatic fluid collections. 2. Multiple small dependent calcified gallstones as before. Gallbladder hydrops is also now present, which may reflect gallbladder outlet obstruction and incipient acute cholecystitis, versus a fasting state. 3. Persistent bilateral hydroureteronephrosis, probably secondary to vesicoureteral reflux. 2.9 cm right bladder diverticulum as before. 4. Ruiz colonic diverticulosis, without acute diverticulitis. 5. Small retrocardiac hiatal hernia as before. 6. Small fat containing periumbilical ventral hernia. Dictated by: Zachery Wolfe M.D. on 02/19/2017 at 14:13 Approved by: Zachery Wolfe M.D. on 02/19/2017 at 14:28 MR ABDOMEN MRCP IMPRESSION: 1. Study is degraded by patient motion and was terminated by the patient prior to obtaining dedicated MRCP images. 2. Enlarged gallbladder containing cholelithiasis with pericholecystic fluid most consistent with acute cholecystitis. 3. No intra-or extrahepatic hepatic bile duct dilatation. Grossly there is no choledocholithiasis although imaging is limited by motion and lack of MRCP images. 4. Peripancreatic edema consistent with pancreatitis. Dictated by: Michael Hand M.D. on 02/19/2017 at 17:31 Approved by: Michael Hand M.D. on 02/19/2017 at 17:43 . Cardiac Echo Impressions Interpretation Summary The ejection fraction is estimated to be 60-65%. There are no obvious focal wall motion abnormalities noted but poor endocardial definition reduces the sensitivity for the detection of such. Electronically signed by: Han Nunez on Reading Physician:02/21/2017 10:33 AM . Additional Diagnostics NM HIDA SCAN WITHOUT CCK IMPRESSION: 1. Nonfilling of gallbladder consistent with cystic duct obstruction. This finding is highly compatible with acute cholecystitis. 2. Patent common bile duct. No evidence for biliary obstruction. 3. Reflux of bile into the stomach. Dictated by: Anastacio Bales M.D. on 02/20/2017 at 16:36 Approved by: Anastacio Bales M.D. on 02/20/2017 at 16:39 . 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 Patient was treated with IV antibiotics, surgery and GI services were consulted. During this hospital stay patient was complaining of intermittent chest and abdominal pain. Troponin was mildly elevated. On February 25 patient underwent laparoscopic cholecystectomy. Acute pancreatitis. Acute cholecystitis, status post laparoscopic cholecystectomy 02/25/2017 - Improving, leukocytosis improved - MRCP not indicative of choledocholithiasis - drain in place Plan - Continue with supportive care, anti-emetics - pain control with IV Morphine as needed Coronary artery disease. Stable angina. Paroxysmal A-fib. - stable - Troponin elevated - patient is on ASA/Plavix Plan - Continue with home BP meds - c/w ASA, Plavix - Hold Statin for now given elevated LFTs - rate control Generalized weakness - stable - PT Hypokalemia - improved - Monitor Anemia - Stable after 2 u of RBC Plan - Monitor CBC Thrombocytosis - stable - monitor Hypertension -Blood pressure stable Plan - Continue with current meds T3 N0 bladder cancer, present on admission. - Table - Monitor, patient will follow up with his oncologist in outpatient settings Recent severe neutropenia post chemotherapy s/p Neupogen 480 mcg subcutaneously x 1 dose on 02/16/17 - improved Chronic pruritic rash - Improved - Currently denies any significant pruritus and no rash noted on exam Diabetes type 2 - Stable - Hold home Metformin - Cover with ISS for now DVT PROPHYLAXIS: Heparin Code status: I discussed code status with the patient and family, Patient would like to be full code for now, family support him in his decision. Disposition: discharge after patient improves. Plan of care discussed with treatment team; Labs, radiology tests reviewed. Plan of care, alternatives were discussed and reviewed with patient/family, treatment team. All questions answered. Patient/family verbalized understanding , approved and agreed to plan of care. GI Prophylaxis: Proton Pump Inhibitor VTE Mechanical Devices: Intermittant Pneumatic CD Resuscitation Status: CPR: Attempt Resuscitation (But do not intubate) Limited Interventions: Compressions, Cardioversion/Defibrillation, BiPAP, Medications and IV Fluid Phi Zheng MD Mar 01, 2017 15:00
[2017-03-01] MEDS: 0.9% Sodium Chloride 250 ML IV SCH (19:35)
[2017-03-01 21:13] VITALS: BP 131/71; PULSE 81; RESP 16; O2SAT 99
[2017-03-02] MEDS: Heparin 5,000 Unit/mL Inj SUBQ SCH ×3 (01:11→16:30)
[2017-03-02 04:28] VITALS: BP 190/72; PULSE 78; RESP 16; O2SAT 95
[2017-03-02] MEDS: Alum-Mag Hydrox-Simeth 30 mL Suspension PO PRN (07:56)
[2017-03-02] MEDS: Isosorbide Mononitrate 30 mg ER24 Tablet PO SCH (09:16)
[2017-03-02] MEDS: Pantoprazole 40 mg ER24 Tablet PO SCH ×2 (09:16→16:30)
[2017-03-02] MEDS: Insulin LISPRO Low-Dose Scale SUBQ SCH ×2 (09:22→12:00)
[2017-03-02] MEDS: Artificial Tears 15 mL Ophthalmic Solution BOTH_EYES PRN (09:23)
--- NOTE | 2017-03-02 09:45 | PROG NOTE ---
[address] [address] PROGRESS NOTE PATIENT: RANDY DRISCOLL : 1935 MR#: [id number] ADMIT: 02/19/2017 JOB ID: [id number] DATE: SUBJECTIVE: Postop day five, laparoscopic cholecystectomy with cholangiogram. He is doing well from his gallbladder surgery. He is taking soft food. He complains of pain by his Raul-Jasso drain site. His ASIA drain is putting out 70 to 150 cc today of serous fluid. His exam is otherwise benign. His labs yesterday showed a normal white count, hematocrit of 29, still an elevated platelet count at 634, but stable LFTs. His blood sugar was a bit high at 262. IMPRESSION/PLAN: Doing well from a surgical point of view. Blood sugar control could be more ideal. We will remove his Raul-Jasso drain today. If this does not resolve all his pain, we should consider imaging him. Most likely, however he will do well enough that he can be advanced on his diet and be discharged without further imaging.
--- NOTE | 2017-03-02 13:10 | PCM.DIMED ---
Discharge Instructions Date of Service Mar 02, 2017 Dates of Hospitalization Feb 19, 2017 at 15:35 Discharge Diagnosis Discharge Diagnosis Acute Cholecystitis , Acute pancreatitis Diet Discharge Diet: Low fat, Low Sodium, Heart Healthy, Diabetic Activity Discharge Activity: Other (Avoid heavy physical work or exertion ) Call your provider Call your provider for: Fever or Chills, Shortness of breath, Bleeding, Chest pain, Vomitting, Excessive diarrhea, Weakness (unilateral), Other (Abdominal pain, chest pain ) Phi Zheng MD Mar 02, 2017 13:10
[2017-03-02] MEDS ORDERED: PANT40TA3 PO (13:14)
[2017-03-02] MEDS ORDERED: OXYC-530 PO (13:14)
[2017-03-02] MEDS ORDERED: METO50TA3 PO (13:14)
--- NOTE | 2017-03-02 13:22 | PCM.DC.MED ---
Discharge Summary Date of Service Mar 02, 2017 Dates of Hospitalization Date of Hospital Admission Feb 19, 2017 at 15:35 Date of Discharge: Mar 02, 2017 Providers: Admitting Physician: Ravinder Johnson Primary Care Physician: Traci Samuel PA-C Attending Physician: Phi Zheng MD Diagnosis at Time of Discharge Diagnosis at Time of Discharge Acute pancreatitis. Acute cholecystitis, status post laparoscopic cholecystectomy 02/25/2017 CAD, Stable Angina Hypokalemia Thrombocytosis Consultations GI, Surgery Procedures XRay, CTs & MRIs Date of Service: 02/19/17 1222 PROCEDURE: CT ABDOMEN AND PELVIS WITH CONTRAST IMPRESSION: 1. Interval development of mild interstitial edematous pancreatitis, without acute peripancreatic fluid collections. 2. Multiple small dependent calcified gallstones as before. Gallbladder hydrops is also now present, which may reflect gallbladder outlet obstruction and incipient acute cholecystitis, versus a fasting state. 3. Persistent bilateral hydroureteronephrosis, probably secondary to vesicoureteral reflux. 2.9 cm right bladder diverticulum as before. 4. Ruiz colonic diverticulosis, without acute diverticulitis. 5. Small retrocardiac hiatal hernia as before. 6. Small fat containing periumbilical ventral hernia. Dictated by: Zachery Wolfe M.D. on 02/19/2017 at 14:13 Approved by: Zachery Wolfe M.D. on 02/19/2017 at 14:28 MR ABDOMEN MRCP IMPRESSION: 1. Study is degraded by patient motion and was terminated by the patient prior to obtaining dedicated MRCP images. 2. Enlarged gallbladder containing cholelithiasis with pericholecystic fluid most consistent with acute cholecystitis. 3. No intra-or extrahepatic hepatic bile duct dilatation. Grossly there is no choledocholithiasis although imaging is limited by motion and lack of MRCP images. 4. Peripancreatic edema consistent with pancreatitis. Dictated by: Michael Hand M.D. on 02/19/2017 at 17:31 Approved by: Michael Hand M.D. on 02/19/2017 at 17:43 . Cardiac Echo Impression Interpretation Summary The ejection fraction is estimated to be 60-65%. There are no obvious focal wall motion abnormalities noted but poor endocardial definition reduces the sensitivity for the detection of such. Electronically signed by: Han Nunez on Reading Physician:02/21/2017 10:33 AM . Other Diagnostics NM HIDA SCAN WITHOUT CCK IMPRESSION: 1. Nonfilling of gallbladder consistent with cystic duct obstruction. This finding is highly compatible with acute cholecystitis. 2. Patent common bile duct. No evidence for biliary obstruction. 3. Reflux of bile into the stomach. Dictated by: Anastacio Bales M.D. on 02/20/2017 at 16:36 Approved by: Anastacio Bales M.D. on 02/20/2017 at 16:39 . 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 Patient was treated with IV antibiotics, surgery and GI services were consulted. On February 25 patient underwent laparoscopic cholecystectomy without complications. He finished course of antibiotics while in the hospital. During this hospital stay patient was complaining of intermittent chest and abdominal pain. Troponin was mildly elevated and stable. Patient does ave Hx of CAD and stable angina. Manuela was also diagnosed with anemia of chronic disease. He received 2 unit of RBC prior to surgery. Surgery was delayed because of anemia and chest pain. His Hb has been stable since then. PT was consulted and recommended FWW. Family promised to get it today. Patient was seen and examined on the day of discharge. After patient improved he was discharged home with recommendation to follow up with his PCP, [place], Oncologist for further management of his medical problems. Patient Condition @ Discharge: good Discharge Disposition: home Discharge Activity: resume regular activity, patient was advised to avoid heavy physical work or exertion Driving: Patient was strongly advised against driving when under influence of alcohol, pain meds or other medication that can cause sedation or decreased reaction. Patient was strongly advised that he must not drink, drive, operative heavy machinery or do anything that requires precise judgement or dexterity within 12 hours of taking the controlled medication that was prescribed to him. Discharge Diet: regular DM diet, heart healthy, low fat, low salt, high fiber Information Provided to Patient: information about discharge medications Discharge Medications: I discussed with patient and family medication dosage, usage, goals of therapy, side effects, alternatives. During discharge patient was alert, oriented, able to make own informed decisions. We discussed possible severe side effects, adverse reactions, benefits, risks, alternatives of current and newly prescribed medications and diagnostic procedures. Patient verbalized understanding and agreed to current plan of care and discharge. TIME SPENT IN DISCHARGE ACTIVITY: Face to face activity greater then 30 minutes spent in discharge activity. 1. Discussed with patient/ family re: discharge plan of care/treatment, and follow up care/services. 2. Patient/family agreed with discharge plan and further plan of care, all questions were answered/addressed, no further questions at the time of discharge. Exam Vital Signs (Last) Date Time Temp Pulse Resp B/P Pulse Ox O2 Delivery O2 Flow Rate FiO2 03/02/17 04:28 37.0 78 16 190/72 95 Room Air 03/01/17 21:13 1.00 Test 02/19/17 14:10 02/19/17 17:49 02/20/17 03:17 02/20/17 06:00 Urine Color Straw (YELLOW) Urine Appearance Hazy (CLEAR,HAZY) Urine pH 7.0 (5.0-8.0) Urine Specific [place] 1.020 (1.003-1.035) Urine Protein 100mg/dL (NEG,TRACE) Urine Glucose (UA) 100mg/dL (NEGATIVE) Urine Ketones Negativemg/dL (NEGATIVE) Urine Occult Blood Moderate (NEGATIVE) Urine Nitrite Negative (NEGATIVE) Urine Bilirubin Negative (NEGATIVE) Urine Urobilinogen Normalmg/dL (NORMAL) Urine Leukocyte Esterase Negative (NEGATIVE) Urine RBC 11-50/hpf (0-2) Urine WBC 0-5/hpf (0-5) Urine Epithelial Cells Occasional/hpf (NONE-MOD) Urine Crystals None seen (NONE SEEN) Urine Bacteria Few/hpf (NONE-FEW) Urine Hyaline Casts None/lpf (NONE) Urine Granular Casts None seen (NONE SEEN) Urine Waxy Casts None seen (NONE SEEN) Urine Red Blood Cell Casts None seen (NONE SEEN) Urine White Blood Cell Casts None seen (NONE SEEN) Urine Mucus None seen (None Seen) Urine Trichomonas None seen (NONE SEEN) Urine Yeast None (NONE SEEN) Urinalysis Comment None Urine Culture Reflexed Not indicated Hemoglobin A1c 6.8% (4.8-5.6) Metamyelocytes % 2% (0-0) Activated Partial Thromboplast Time 30.8sec (22.8-33.0) Lactic Acid Level 1.3mmol/L (0.4-2.0) Test 02/22/17 04:32 02/23/17 04:40 02/23/17 21:42 02/24/17 06:44 Band Neutrophils % 6% (1-5) Procalcitonin 0.22ng/mL (0.00-0.08) Nucleated Red Blood Cells 1/100 WBC (0-24) Hematology Comments Prothrombin Time 10.7sec (8.1-12.5) Prothromb Time International Ratio 1.00ratio Hold Purple Top Tube Received (Received) Phosphorus Level 2.5mg/dL (2.5-4.9) Magnesium Level 2.2mg/dL (1.6-2.6) Test 02/25/17 07:16 02/27/17 05:00 02/28/17 12:23 03/01/17 11:30 Troponin T 0.019ug/L (0.0-0.011) Neutrophils (%) (Auto) 74.1% (40-74) Lymphocytes (%) (Auto) 8.2% (14-46) Monocytes (%) (Auto) 14.2% (4-12) Eosinophils (%) (Auto) 1.1% (0-5) Basophils (%) (Auto) 0.3% (0-3) Lipase 76U/L (13-60) White Blood Count 10.0th/mm3 (3.8-10.1) Red Blood Count 3.35mil/mm3 (4.40-5.80) Hemoglobin 9.7g/dL (13.8-17.2) Hematocrit 29.7% (41.0-50.0) Mean Corpuscular Volume 88.7fL (81-100) Mean Corpuscular Hemoglobin 29.0pg (27.0-35.0) Mean Corpuscular Hemoglobin Concent 32.7% (32.0-37.0) Red Cell Distribution Width 14.9% (12.3-15.4) Platelet Count 634bil/L (150-400) Sodium Level 140mEq/L (134-144) Potassium Level 3.6mEq/L (3.5-5.2) Chloride Level 99mEq/L (97-108) Carbon Dioxide Level 29mmol/L (18-29) Blood Urea Nitrogen 11mg/dL (8-27) Creatinine 1.04mg/dL (0.76-1.27) Estimat Glomerular Filtration Rate 72mL/min (>59) Glucose Level 262mg/dL (60-99) Calcium Level 8.1mg/dL (8.5-10.1) Total Bilirubin 0.3mg/dL (0.0-1.2) Aspartate Amino Transf (AST/SGOT) 20U/L (0-50) Alanine Aminotransferase (ALT/SGPT) 22U/L (0-44) Alkaline Phosphatase 181U/L (25-160) Total Protein 5.9g/dL (6.4-8.4) Albumin 2.9g/dL (3.4-5.0) Microbiology Results Blood cultures pending Discharge Medications Discharge Medications Amlodipine (Amlodipine) 2.5 Mg Tablet 2.5 MG PO BID (Reported) Aspirin Chew (Aspirin Chew) 81 Mg Chew 81 MG PO DAILY Prescribed by: RAVINDER JOHNSON MD Atorvastatin Calcium (Atorvastatin Calcium) 10 Mg Tablet 10 MG PO HS Prescribed by: EMILIE DAVILA DO Clopidogrel (Clopidogrel) 75 Mg Tablet 75 MG PO DAILY (Reported) Isosorbide MN ER (Isosorbide MN ER) 30 Mg Tab.er.24h 60 MG PO QAM (Reported) Metformin (Metformin) 500 Mg Tablet 500 MG PO DAILY (Reported) Metoprolol Tartrate (Metoprolol Tartrate) 50 Mg Tablet 50 MG PO BID Prescribed by: FLAQUITO FLORES MD Pantoprazole DR (Pantoprazole DR) 40 Mg Tablet.dr 40 MG PO BIDAC Prescribed by: FLAQUITO FLORES MD As needed Dextran 70/Hypromellose/Pf (Artificial Tears Drops) 1 Each Droperette 1 DROP BOTH_EYES BID PRN PRN For Eye Irritation (Reported) Nitroglycerin SL (Nitrostat) 0.4 Mg Tab.subl 0.4 MG SL Q5MIN PRN PRN For Chest Pain (Reported) Ondansetron (Ondansetron) 8 Mg Tablet 8 MG PO BID PRN PRN For Nausea (Reported) Tramadol (Tramadol) 50 Mg Tablet 50 MG PO BID PRN PRN For Pain (Reported) oxyCODONE (oxyCODONE) 5 Mg Tablet 7.5 MG PO Q4H PRN PRN For Moderate Pain Prescribed by: FLAQUITO FLORES MD Followup Plan Discharge Diet: Low fat, Low Sodium, Heart Healthy, Diabetic Discharge Activity: Other (Avoid heavy physical work or exertion ) Phi Zheng MD Mar 02, 2017 13:22
[2017-03-02] MEDS ORDERED: .Epic Conversion Completed XX PRN (15:05)
[2017-03-02 16:48] VITALS: BP 161/84; PULSE 105; RESP 18; O2SAT 97
== END 2017-03-02 17:25 | disposition home or self-care (01) | DRG 417 ==
LOC: SED 12:01 → PCC 15:35 → OSC 02-22 13:50
PROVIDERS: ADMIT Internal Medicine; ATTEND Internal Medicine
PROC: 30233N1 Transfusion of Nonautologous Red Blood Cells into Peripheral Vein, Percutaneous Approach (ICD-10-PCS; 2017-02-24)
PROC: BF101ZZ Fluoroscopy of Bile Ducts using Low Osmolar Contrast (ICD-10-PCS; 2017-02-25)
PROC: 0FT44ZZ Resection of Gallbladder, Percutaneous Endoscopic Approach (ICD-10-PCS; principal; 2017-02-25 09:00)
DX: K81.0 Acute cholecystitis (principal); K85.10 Biliary acute pancreatitis without necrosis or infection; E87.2 Acidosis; K82.0 Obstruction of gallbladder; Z87.891 Personal history of nicotine dependence; C67.9 Malignant neoplasm of bladder, unspecified; I12.9 Hypertensive chronic kidney disease with stage 1 through stage 4 chronic kidney disease, or unspecified chronic kidney disease; N18.2 Chronic kidney disease, stage 2 (mild); E11.9 Type 2 diabetes mellitus without complications; I16.0 Hypertensive urgency; I25.10 Atherosclerotic heart disease of native coronary artery without angina pectoris; Z95.5 Presence of coronary angioplasty implant and graft; L29.9 Pruritus, unspecified; I35.1 Nonrheumatic aortic (valve) insufficiency; E78.5 Hyperlipidemia, unspecified; D70.1 Agranulocytosis secondary to cancer chemotherapy; Z66 Do not resuscitate; I48.0 Paroxysmal atrial fibrillation; Z79.02 Long term (current) use of antithrombotics/antiplatelets; I25.89 Other forms of chronic ischemic heart disease